=== PATIENT | male | born 1960 | race Caucasian/White ===

== ENCOUNTER 2017-05-25 15:11 | Inpatient (IN) | payer BC ==
[~2017-05-25] VITALS: Ht 175.3 cm; Wt 73.7 kg
[2017-05-25 19:50] VITALS: BP 115/77; PULSE 81; RESP 18
[2017-05-25] MEDS ORDERED: LEVO500T10 PO (20:30)
[2017-05-25] MEDS ORDERED: MOME13HF2 INHALATION (20:30)
[2017-05-25] MEDS ORDERED: PRED20TA PO (20:30)
[2017-05-25] MEDS ORDERED: ALBU18HF INHALATION (20:30)
[2017-05-25 20:43] VITALS: Ht 175.3 cm; Wt 73.7 kg
[2017-05-25] MEDS ORDERED: ONDANSETRON 4 MG INJ IV PRN (21:00)
[2017-05-25] MEDS ORDERED: ACETAMINOPHEN 325 MG TAB PO PRN (21:00)
[2017-05-25] MEDS ORDERED: ALBUTEROL/IPRATROPIUM (NEB) 3 ML AMP HHN PRN (21:00)
[2017-05-25] MEDS: METHYLPREDNISOLONE 125 MG INJ IV SCH (21:42)
[2017-05-25] MEDS: LEVOFLOXACIN 500MG/D5W (PMX) 100 ML IVPB SCH (21:50)
[2017-05-26 01:26] LABS: ADD SCAN DIFF NO
[2017-05-26 01:28] LABS: ABNORMAL IP MESSAGE 1; BASOPHILS % 0.1 % (0.0-2.0); HEMATOCRIT 40.5 % (42.0-52.0); HEMOGLOBIN 13.1 g/dl (14.0-18.0); LYMPHOCYTES # 0.6 10^3/ul (0.8-2.9); LYMPHOCYTES % 7.4 % (15.0-51.0); MEAN CORPUSCULAR HEMOGLOBIN 28.2 pg (29.0-33.0); MEAN CORPUSCULAR HGB CONC 32.3 g/dl (32.0-37.0); MEAN CORPUSCULAR VOLUME 87.1 fl (82.0-101.0); MEAN PLATELET VOLUME 9.4 fl (7.4-10.4); MONOCYTE # 0.1 10^3/ul (0.3-0.9); MONOCYTES % 1.1 % (0.0-11.0); NEUTROPHIL # 6.8 10^3/ul (1.6-7.5); NEUTROPHILS % 90.9 % (39.0-77.0); PLATELET COUNT 239 10^3/UL (140-415); RED BLOOD COUNT 4.65 10^6/ul (4.70-6.10); RED CELL DISTRIBUTION WIDTH 13.3 % (11.5-14.5); WHITE BLOOD COUNT 7.4 10^3/ul (4.8-10.8)
[2017-05-26 01:35] VITALS: BP 105/61; RESP 20
[2017-05-26 01:48] LABS: ALBUMIN 3.6 g/dl (3.3-4.9); ALBUMIN/GLOBULIN RATIO 1.12; BILIRUBIN,INDIRECT 0.1 mg/dl (0-1.1); BILIRUBIN,TOTAL 0.1 mg/dl (0.2-1.3); CALCIUM 9.4 mg/dl (8.4-10.2); CREATININE 0.82 mg/dl (0.61-1.24); PHOSPHORUS 2.2 mg/dl (2.5-4.9); POTASSIUM 4.2 mmol/L (3.5-5.1); TOTAL PROTEIN 6.8 g/dl (6.1-8.1)
[2017-05-26] MEDS: METHYLPREDNISOLONE 125 MG INJ IV SCH ×2 (08:32→20:52)
[2017-05-26] MEDS: FAMOTIDINE 20 MG TAB PO SCH ×2 (08:33→20:52)
[2017-05-26] MEDS: NICOTINE (21 MG/24 HR) PATCH TRANSDERM SCH (08:33)
[2017-05-26 09:10] VITALS: BP 113/68; PULSE 71; RESP 22
[2017-05-26] MEDS: SALMETEROL/FLUTICASONE 250/50 INHA INH SCH ×2 (09:10→20:54)
[2017-05-26] MEDS ORDERED: SOD CHLORIDE 0.9% 100 ML ONE (09:31)
[2017-05-26] MEDS ORDERED: IOHEXOL 300MG/ML 150 ML BTL ONE (09:31)
--- NOTE | 2017-05-26 11:46 | HP ---
Date/Time of Note Date/Time of Note DATE: 05/26/17 TIME: 11:41 Assessment/Plan VTE Prophylaxis VTE Prophylaxis Intervention: SCD's Lines/Catheters IV Catheter Type (from Nrs): Peripheral IV Assessment/Plan Assessment/Plan IMPRESSION 1. Chronic Cough, likely 2/2 COPD/bronchitis vs malignancy vs infectious etiology 2. COPD 3. abnormal CXR 4. hx of dyslipidemia 5. hx of smoking PLAN will obtain CT chest to eval for abnormal CXR will send sputum for AFB, gramstain/culture order cocci serologies treat with bronchodilators, steroid and abx cont statin HPI/ROS Admit Date/Time Admit Date/Time May 25, 2017 at 19:30 Hx of Present Illness This is a 57 yo male with hx COPD, dyslipidemia, chronic cough, kidney stone, inguinal hernia, and smoking hx who was transferred to [facility] from outside hospital for further eval of chronic cough and abnormal CXR. he was transferred because of insurance reason. He reported chronic cough of 2 years duration. At times, cough has been productive of greenish sputum and rarely has been very minimally blood tinged. he said he has been told cough is secondary to bronchitis and emphysema on multiple occasions in the past. he denied fever, chills, N/V. He did however report shortness of breath and chest discomfort usually when coughing. He said he has been told he has few enlarged lymph nodes, one measuring about 6cm. . PMH/Family/Social Social History Smoking Status: Former smoker Exam/Review of Systems Vital Signs Vitals Vital Signs Date Time Temp Pulse Resp B/P Pulse Ox O2 Delivery O2 Flow Rate FiO2 05/26/17 09:10 97.9 71 22 113/68 95 Nasal Cannula 2.0 Intake and Output 05/25/17 05/25/17 05/26/17 15:00 23:00 07:00 Intake Total 100 ml 360 ml Output Total 500 ml Balance 100 ml -140 ml Exam Constitutional: alert, oriented, well developed Head: atraumatic, normocephalic Respiratory: congested cough, diminished breath sounds, wheezing Cardiovascular: nl pulses, regular rate and rhythm Gastrointestinal: non-tender, soft Extremities: normal pulses Labs Result Diagram: 05/26/17 0117 05/26/17 0117 Medications Medications Current Medications Acetaminophen 650 mg 650 mg Q6H PRN PO PAIN AND OR ELEVATED TEMP; Start at 21:00 Levofloxacin/ Dextrose (Levaquin 500mg/ D5W 100 ml (Pmx)) 100 ml @ 100 mls/hr Q24H IVPB Last administered on 05/25/17 21:50; Admin Dose 100 MLS/HR; Start at 21:00 Nicotine (Nicoderm 21 Mg/ 24hr) 1 patch DAILY TRANSDERM ; Start 05/26/17 at 09: 00 Methylprednisolone Sodium Succinate (Solu-Medrol) 60 mg BID IV Last administered on 05/26/17 08:32; Admin Dose 60 MG; Start 05/25/17 at 21:00 Ondansetron HCl (Zofran Inj) 4 mg Q6H PRN IV NAUSEA AND/OR VOMITING; Start at 21:00 Famotidine (Pepcid) 20 mg BID PO Last administered on 05/26/17 08:33; Admin Dose 20 MG; Start 05/26/17 at 09:00 Salmeterol Xinafoate/ Fluticasone (Advair 250/50 Diskus) 1 inh BID INH Last administered on 05/26/17 09:10; Admin Dose 1 INH; Start 05/26/17 at 09:00 ALBERTINA SIMON MD May 26, 2017 11:46
[2017-05-26 13:22] VITALS: BP 112/61; RESP 18
--- NOTE | 2017-05-26 16:35 | RADRPT ---
PROCEDURE: CT Chest with contrast. CLINICAL INDICATION: None. TECHNIQUE: Helical axial sections were obtained through the chest with intravenous contrast enhanc ement. 80 ml of Omnipaque-300 was used for the intravenous contrast. Coronal and sagittal reforma tted images were obtained from the axial source images. Total exam DLP is 472.96 mGy-cm. CTDIvol is 12.20 mGy. One or more of the following dose reduction techniques were used: Automated exposure co ntrol, adjustment of the mA and/or kV according to patient size, use of iterative reconstruction jesse hnique. COMPARISON: None FINDINGS: The lungs are clear with no airspace or interstitial disease. There is no pulmonary nodule or mass lesion. There is extensive lymphadenopathy throughout the superior anterior mediastinum, middle mediastinum, and bilateral buzz. The largest lymph node in the anterior mediastinum superiorly at the level of the great vessels measures 2.2 x 1.6 cm. Right paratracheal lymphadenopathy measures up to 3.4 x 2. 4 cm. Aortopulmonary window lymphadenopathy measures up to 2.4 x 1.9 cm. Subcarinal lymphadenopath y measures up to 2.1 x 3.4 cm. Right hilar lymphadenopathy measures up to 4.0 x 3.0 cm and left hil ar lymphadenopathy measures up to 2.7 x 1.8 cm. There is right retrocrural lymphadenopathy measurin g up to 1.0 x 1.5 cm. There is no axillary, supraclavicular, or internal mammary lymphadenopathy. The thoracic aorta is not dilated. The heart size is normal. There is no pleural effusion or pericardial effusion. Images through the upper abdomen demonstrate normal visualized portions of the liver, spleen, and ad renals. There are mild degenerative changes of the spine. The osseous structures are otherwise unr emarkable with no fracture or lytic lesion. IMPRESSION: 1. Extensive lymphadenopathy throughout the mediastinum and buzz consistent with probable neoplasm. Various inflammatory and infectious processes may also give this appearance. Clinical correlation is advised. 2. Clear lungs. 3. Mild degenerative changes of the spine. RPTAT: QQ .Jaun Ramos MD, MD Date Time Electronically viewed and signed by .Jaun Ramos MD, on 05/26/2017 16:35 .R/
[2017-05-26] MEDS ORDERED: PROMETHAZINE/CODEINE 5ML CUP PO PRN (19:00)
[2017-05-26 19:29] VITALS: BP 104/59; RESP 18
[2017-05-26] MEDS: LEVOFLOXACIN 500MG/D5W (PMX) 100 ML IVPB SCH (20:51)
[2017-05-26] MEDS: ATORVASTATIN 20 MG TAB PO SCH (20:52)
[2017-05-27 02:12] VITALS: BP 117/72; RESP 18
[2017-05-27 08:05] VITALS: BP 105/69; RESP 20
[2017-05-27] MEDS: NICOTINE (21 MG/24 HR) PATCH TRANSDERM SCH ×2 (09:33→09:40)
[2017-05-27] MEDS: SALMETEROL/FLUTICASONE 250/50 INHA INH SCH ×2 (09:33→21:19)
[2017-05-27] MEDS: FAMOTIDINE 20 MG TAB PO SCH ×2 (09:34→21:19)
[2017-05-27] MEDS: METHYLPREDNISOLONE 125 MG INJ IV SCH ×2 (09:34→21:19)
[2017-05-27] MEDS ORDERED: SOD CHLORIDE 0.9% 100 ML ONE (10:53)
[2017-05-27] MEDS ORDERED: IOHEXOL 300MG/ML 150 ML BTL ONE (10:53)
--- NOTE | 2017-05-27 13:00 | CONS ---
Date/Time of Note Date/Time of Note DATE: 05/27/17 TIME: 12:49 Assessment/Plan Assessment/Plan Additional Assessment/Plan CT scan chest was reviewed from yesterday which is showing extensive mediastinal and hilar lymphadenopathy. Assessment recommendations; 1. Patient admitted for chronic cough dating back several months to a year associated with significant mediastinal and hilar lymphadenopathy, patient also has wheezing and shortness of breath. And also has had ocular issues etiology is unclear at this point. The findings are clinically consistent with presumptive diagnosis of sarcoidosis. Patient will need to have a mediastinal lymph node biopsy done. I am going to have a thoracic surgeon evaluate the patient. Clinically there is no suspicion of pulmonary tuberculosis. Consultation Date/Type/Reason Admit Date/Time May 25, 2017 at 19:30 Date of Consultation: May 27, 2017 Type of Consultation: Pulmonary Reason for Consultation Pulmonary consultation requested for evaluation of mediastinal lymphadenopathy. History of present illness; patient is a very pleasant 57-year-old male who was admitted day before yesterday with complaints of chronic cough dating back several months to almost a year associated with shortness of breath and wheezing. The patient has been evaluated by various physicians over the last several months without any diagnosis being made. The patient does complain of low-grade fever off and on has lost 4 pounds over the last several months. Denies any chest pain, denies any sputum production or hemoptysis. Upon evaluation he had a CT scan of chest was done which is showing extensive mediastinal and hilar lymphadenopathy. Without any acute alveolar infiltrates being seen. Past medical history; history of inguinal hernia. No show any other medical illnesses. The patient apparently has had some kind of eye surgery performed in the past. Medications; reviewed. Allergies; none. Social history; patient quit smoking about more than a year ago. Most of alcohol or drug abuse. Family history; patient is , malignancy runs strongly in the family, his brother of stomach cancer, mother also had had some kind of malignancy. 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 Review of systems; denies any headache, visual changes, seizures, dysphagia, chest pain, angina, complaint of chronic wheezing. Complains of dyspnea on exertion. Complains of chronic cough. Has lost minimal weight. Denies any edema. Any urinary symptoms. Denies any GI symptoms. Denies any arthritis or any skin changes. General exam; middle-aged male, awake alert currently in no distress. Social History Smoking Status: Former smoker Exam/Review of Systems Vital Signs Vitals Vital Signs Date Time Temp Pulse Resp B/P Pulse Ox O2 Delivery O2 Flow Rate FiO2 05/27/17 11:42 Nasal Cannula 2.0 05/27/17 09:44 91 05/27/17 08:05 97.6 65 20 105/69 05/26/17 20:17 30 Intake and Output 05/26/17 05/26/17 05/27/17 15:00 23:00 07:00 Intake Total 940 ml 300 ml Output Total 600 ml Balance 940 ml -300 ml Exam HEENT exam; supple neck, no JVD. No lymphadenopathy. Midline trachea. No thyromegaly. No neck masses. Patient has fair dentition. There is no cervical lymphadenopathy. Pupils are midsize and reactive to light bilaterally. Chest exam; bilateral wheezing. S1-S2 audible, no murmurs. Regular rhythm. Abdomen exam; soft, nontender. No organomegaly. Bowel sounds audible. Extremity exam; no peripheral edema. No clubbing. Pulses 2+ bilaterally. TAMPER OPERATOR exam; no focal deficit. Results Result Diagram: 05/26/1711605/26/17116 Medications Medications Current Medications Acetaminophen 650 mg 650 mg Q6H PRN PO PAIN AND OR ELEVATED TEMP; Start at 21:00 Levofloxacin/ Dextrose (Levaquin 500mg/ D5W 100 ml (Pmx)) 100 ml @ 100 mls/hr Q24H IVPB Last administered on 05/26/17 20:51; Admin Dose 100 MLS/HR; Start at 21:00 Nicotine (Nicoderm 21 Mg/ 24hr) 1 patch DAILY TRANSDERM ; Start 05/26/17 at 09: 00 Methylprednisolone Sodium Succinate (Solu-Medrol) 60 mg BID IV Last administered on 05/27/17 09:34; Admin Dose 60 MG; Start 05/25/17 at 21:00 Ondansetron HCl (Zofran Inj) 4 mg Q6H PRN IV NAUSEA AND/OR VOMITING; Start at 21:00 Famotidine (Pepcid) 20 mg BID PO Last administered on 05/27/17 09:34; Admin Dose 20 MG; Start 05/26/17 at 09:00 Salmeterol Xinafoate/ Fluticasone (Advair 250/50 Diskus) 1 inh BID INH Last administered on 05/27/17 09:33; Admin Dose 1 INH; Start 05/26/17 at 09:00 Atorvastatin Calcium (Lipitor) 20 mg HS PO Last administered on 05/26/17 20:52 ; Admin Dose 20 MG; Start 05/26/17 at 21:00 Promethazine HCl/ Codeine 5 ml 5 ml Q4H PRN PO COUGH Last administered on 19:47; Admin Dose 5 ML; Start 05/26/17 at 19:00 Sodium Chloride (1/2 NS) 1,000 ml @ 100 mls/hr Q10H IV ; Start 05/27/17 at 10: 00 TOÑITO LARA May 27, 2017 12:59
[2017-05-27 13:27] VITALS: BP 116/76; RESP 16
[2017-05-27] MEDS: SOD CHLORIDE 0.45% 1,000 ML IV SCH ×2 (13:51→22:52)
--- NOTE | 2017-05-27 14:15 | PN ---
Date/Time of Note Date/Time of Note DATE: 05/27/17 TIME: 14:10 Assessment/Plan VTE Prophylaxis VTE Prophylaxis Intervention: SCD's Lines/Catheters IV [facility] Assessment/Plan Chief Complaint/Hosp Course 1. Chronic Cough CT chest shows clear lungs but extensive pulmonary lymphadenopathy-etiology infectious versus neoplasm CT abdomen and pelvis to evaluate for malignancy Patient denies weight loss, night sweats or hemoptysis will obtain a QuantiFERON gold to rule out TB, AFB sputum is also been ordered Follow-up on coccidiomycosis antibody Pulmonary and ID consults Continue antibiotics and steroids for now Patient does have a history of smoking but reportedly not excessively 2. History of dyslipidemia Continue statin Check lipid panel Prophylaxis: SCDs Problems: Subjective 24 Hr Interval Summary Respiratory: cough Exam/Review of Systems Vital Signs Vitals Vital Signs Date Time Temp Pulse Resp B/P Pulse Ox O2 Delivery O2 Flow Rate FiO2 05/27/17 13:27 97.8 70 16 116/76 96 05/27/17 11:42 Nasal Cannula 2.0 05/26/17 20:17 30 Intake and Output 05/26/17 05/26/17 05/27/17 15:00 23:00 07:00 Intake Total 940 ml 300 ml Output Total 600 ml Balance 940 ml -300 ml Exam Constitutional: alert, oriented Respiratory: crackles/rales Cardiovascular: regular rate and rhythm Gastrointestinal: soft, No distended Musculoskeletal: nl extremities to inspection Results Result Diagram: 05/26/17 0117 05/26/17 0117 Medications Medications Current Medications Acetaminophen 650 mg 650 mg Q6H PRN PO PAIN AND OR ELEVATED TEMP; Start at 21:00 Levofloxacin/ Dextrose (Levaquin 500mg/ D5W 100 ml (Pmx)) 100 ml @ 100 mls/hr Q24H IVPB Last administered on 05/26/17 20:51; Admin Dose 100 MLS/HR; Start at 21:00 Nicotine (Nicoderm 21 Mg/ 24hr) 1 patch DAILY TRANSDERM ; Start 05/26/17 at 09: 00 Methylprednisolone Sodium Succinate (Solu-Medrol) 60 mg BID IV Last administered on 05/27/17 09:34; Admin Dose 60 MG; Start 05/25/17 at 21:00 Ondansetron HCl (Zofran Inj) 4 mg Q6H PRN IV NAUSEA AND/OR VOMITING; Start at 21:00 Famotidine (Pepcid) 20 mg BID PO Last administered on 05/27/17 09:34; Admin Dose 20 MG; Start 05/26/17 at 09:00 Salmeterol Xinafoate/ Fluticasone (Advair 250/50 Diskus) 1 inh BID INH Last administered on 05/27/17 09:33; Admin Dose 1 INH; Start 05/26/17 at 09:00 Atorvastatin Calcium (Lipitor) 20 mg HS PO Last administered on 05/26/17 20:52 ; Admin Dose 20 MG; Start 05/26/17 at 21:00 Promethazine HCl/ Codeine 5 ml 5 ml Q4H PRN PO COUGH Last administered on 19:47; Admin Dose 5 ML; Start 05/26/17 at 19:00 Sodium Chloride (1/2 NS) 1,000 ml @ 100 mls/hr Q10H IV Last administered on 13:51; Admin Dose 100 MLS/HR; Start 05/27/17 at 10:00 JACKIE RUDOLPH May 27, 2017 14:14
--- NOTE | 2017-05-27 15:12 | RADRPT ---
PROCEDURE: CT abdomen and pelvis with contrast. CLINICAL INDICATION: Evaluate for malignancy. No history of hemoptysis. TECHNIQUE: CT of the abdomen/pelvis was performed utilizing axial images with reconstructions in s agittal and coronal planes following the intravenous administration of 100 cc Omnipaque-300 contrast . The administered radiation dose is CTDI 10.33 mGy, DLP 658.07 mGy-cm. One or more of the following dose reduction techniques were used: Automated exposure control, Adjustment of the mA and/or kV acc ording to patient size, or Use of iterative reconstruction technique. COMPARISON: CT chest 05/26/2017 FINDINGS: Lung bases: Right infrahilar lymphadenopathy is partially imaged within the lower thorax, better dem onstrated on comparison CT chest. The heart is normal size without pericardial effusion. There is b ilateral posterior dependent atelectasis. CT ABDOMEN: Gastrointestinal tract: There is no bowel obstruction.No abnormal colonic wall thickening is identif ied.There is no pneumoperitoneum. A normal-appearing appendix is seen in the right lower quadrant. T here are a few scattered colonic diverticuli without evidence of acute diverticulitis. Liver: The liver is normal in size without focal lesion.There is no intrahepatic ductal dilatation. Gallbladder: The gallbladder is collapsed. Pancreas: The pancreas is grossly unremarkable. Spleen: The spleen is normal in size without focal lesion. Kidneys: The kidneys are normal in size and contour. A 3-4 mm stone is seen in the interpolar left k idney. Punctate calculi are seen in the interpolar right kidney. Extrarenal pelvis or parapelvic cys t is seen on the left. No hydronephrosis is seen. Adrenal glands: The bilateral adrenal glands are unremarkable. Retroperitoneum: A few borderline enlarged periaortic lymph nodes are noted. The aorta is normal in caliber. CT PELVIS: Pelvic organs: The prostate gland is mildly enlarged and contains coarse calcifications. Bladder: The bladder is unremarkable. There is no pelvic free fluid.No pelvic adenopathy is identified. Osseous structures: No destructive lytic or blastic osseous lesion is identified. IMPRESSION: 1. Right perihilar hilar lymphadenopathy is partially imaged and better demonstrated on prior CT ch est of 05/26/2017. 2. Bilateral nephrolithiasis without evidence of hydronephrosis. 3. Borderline enlarged upper para-aortic lymph nodes. 4. Colonic diverticulosis without evidence of acute diverticulitis. RPTAT: PP Nela Rebolledo, Physician Date Time Electronically viewed and signed by Nela Rebolledo Physician on 05/27/2017 15:11 RC/
[2017-05-27 20:24] VITALS: BP 106/62; RESP 18
[2017-05-27] MEDS: LEVOFLOXACIN 500MG/D5W (PMX) 100 ML IVPB SCH (21:19)
[2017-05-27] MEDS: ATORVASTATIN 20 MG TAB PO SCH (21:19)
[2017-05-28 02:27] VITALS: BP 108/65; RESP 18
[2017-05-28 05:59] LABS: ADD SCAN DIFF NO
[2017-05-28 06:05] LABS: BASOPHILS % 0.1 % (0.0-2.0); HEMATOCRIT 40.8 % (42.0-52.0); HEMOGLOBIN 13.5 g/dl (14.0-18.0); LYMPHOCYTES # 0.9 10^3/ul (0.8-2.9); LYMPHOCYTES % 8.9 % (15.0-51.0); MEAN CORPUSCULAR HEMOGLOBIN 29.3 pg (29.0-33.0); MEAN CORPUSCULAR HGB CONC 33.1 g/dl (32.0-37.0); MEAN CORPUSCULAR VOLUME 88.5 fl (82.0-101.0); MONOCYTE # 0.4 10^3/ul (0.3-0.9); MONOCYTES % 3.9 % (0.0-11.0); NEUTROPHIL # 8.9 10^3/ul (1.6-7.5); NEUTROPHILS % 84.8 % (39.0-77.0); PLATELET COUNT 280 10^3/UL (140-415); RED BLOOD COUNT 4.61 10^6/ul (4.70-6.10); RED CELL DISTRIBUTION WIDTH 13.5 % (11.5-14.5); WHITE BLOOD COUNT 10.5 10^3/ul (4.8-10.8)
[2017-05-28 06:52] LABS: CALCIUM 9.2 mg/dl (8.4-10.2); CREATININE 0.8 mg/dl (0.61-1.24); MAGNESIUM 1.9 mg/dl (1.7-2.5); PHOSPHORUS 3.2 mg/dl (2.5-4.9); POTASSIUM 4.1 mmol/L (3.5-5.1)
[2017-05-28 07:32] VITALS: BP 123/71; RESP 18
[2017-05-28] MEDS: SOD CHLORIDE 0.45% 1,000 ML IV SCH ×4 (07:50→21:25)
[2017-05-28] MEDS: METHYLPREDNISOLONE 125 MG INJ IV SCH ×2 (08:44→21:26)
[2017-05-28] MEDS: FAMOTIDINE 20 MG TAB PO SCH ×2 (08:44→21:25)
[2017-05-28] MEDS: SALMETEROL/FLUTICASONE 250/50 INHA INH SCH ×2 (08:45→21:25)
--- NOTE | 2017-05-28 10:59 | CONS ---
Date/Time of Note Date/Time of Note DATE: 05/28/17 TIME: 10:44 Assessment/Plan Assessment/Plan Chief Complaint/Hosp Course assessment/impression - chronic cough of unclear etiology: possible etiologies include infectious ( bacterial, fungal, mycobacterial), vasculitis, reactive and neoplastic - possibly superimposed viral bronchitis - extensive mediastinal and hilar lymphadenopathy with clear parenchyma - visual change - extensive exposure to construction dusts recommendations - pending result: AFB sputum x2, cocci serology, QTB gold - I recommend and ordered: respiratory fungal culture, AFB smear and culture x1 more, HIV screen, LDH, 1,2-iuxf-Q-glucan, urine histoplasma antigen, urine legionella antigen, cryptococcal antigen, nasopharyngeal swab (influenza A/B/ H1N1, bordetella pertussis, RSV, respiratory viruses), - I recommend: ceftriaxone and azithromycin. Would hold levofloxacin while working Pt up for TB management d/w Pt, his RN, Dr. Humphreys and Dr. Tierney Problems: Consultation Date/Type/Reason Admit Date/Time May 25, 2017 at 19:30 Date of Consultation: May 28, 2017 Type of Consultation: ID Referring Provider: JACKIE HUMPHREYS Hx of Present Illness This is a 57 yo male with hyperlipidemia who was admitted due to 2-3 year h/o chronic cough. It has been productive, usually white colored sputum. He has had pleuritic chest pain, that radiates from the anterior chest wall to the mid upper back. He denies weight loss. Pt started having cough 2-3 years ago and was evaluated as outpatient; was treated for probable bronchitis, asthma without improvement. He was informed that he had mediastinal and hilar lymphadenopathy, and was referred for further workup. Recently, he feels that cough got worse after he was exposed to a friend who was having URI symptoms. He developed fever and chills, and sputum color turned green. CT here confirmed extensive lymphadenopathy throughout the mediastinum and buzz, while no parenchymal lesions. Pt has lived in [facility] for many years. He lives at home with his family. No known TB contact. He was tested negative for HIV in the past. He had TB test but does not remember the result. 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 He has never been homeless or in the intermediate. Dr. Humphreys requested ID consultation on this Pt. Constitutional: chills, febrile Eyes: visual change (blurry) ENT: no complaints Respiratory: cough, pain, pleuritic pain, sputum, wheezing Cardiovascular: no complaints Gastrointestinal: no complaints Genitourinary: no complaints Musculoskeletal: no complaints Skin: no complaints Neurologic: no complaints Endocrine: no complaints Lymphatic: no complaints Past Medical History Medical History: hypertension, other (hyperlipidemia) Social History Alcohol Use: none Smoking Status: Former smoker Drug Use: none Exam/Review of Systems Vital Signs Vitals Vital Signs Date Time Temp Pulse Resp B/P Pulse Ox O2 Delivery O2 Flow Rate FiO2 05/28/17 07:32 97.5 56 18 123/71 91 05/27/17 20:00 Nasal Cannula 2.0 05/26/17 20:17 30 Intake and Output 05/27/17 05/27/17 05/28/17 15:00 23:00 07:00 Intake Total 100 ml 2340 ml 1510 ml Output Total 1000 ml Balance 100 ml 2340 ml 510 ml Exam Constitutional: alert, oriented, well developed Psych: nl mood/affect, no complaints Head: normocephalic Eyes: nl conjunctiva, nl lids, nl sclera, No icteric ENMT: mucosa pink and moist, nl external ears & nose, nl nasal mucosa & septum Neck: supple Respiratory: crackles/rales, wheezing Cardiovascular: nl pulses, regular rate and rhythm Gastrointestinal: non-tender, soft Musculoskeletal: nl extremities to inspection Extremities: No edema Neurological: VOLLEYBALL COMMENTATOR II-XII intact, nl mental status, nl speech, nl strength Skin: nl turgor, No rash or lesions Lymph: nl lymph nodes Results Result Diagram: 05/28/17 0507 05/28/17 0500 Results 24 hrs Laboratory Tests Test 05/28/17 05:00 05/28/17 05:07 Sodium Level 142 Potassium Level 4.1 Chloride Level 102 Carbon Dioxide Level 26 Anion Gap 18 H Blood Urea Nitrogen 18 Creatinine 0.80 Glucose Level 107 Calcium Level 9.2 Phosphorus Level 3.2 Magnesium Level 1.9 White Blood Count 10.5 # Red Blood Count 4.61 L Hemoglobin 13.5 L Hematocrit 40.8 L Mean Corpuscular Volume 88.5 Mean Corpuscular Hemoglobin 29.3 Mean Corpuscular Hemoglobin Concent 33.1 Red Cell Distribution Width 13.5 Platelet Count 280 Mean Platelet Volume 10.0 Neutrophils % 84.8 H Lymphocytes % 8.9 L Monocytes % 3.9 Eosinophils % 0.0 Basophils % 0.1 Neutrophils # 8.9 H Lymphocytes # 0.9 Monocytes # 0.4 Eosinophils # 0.0 Basophils # 0.0 Nucleated Red Blood Cells # 0.0 Medications Medications Current Medications Acetaminophen 650 mg 650 mg Q6H PRN PO PAIN AND OR ELEVATED TEMP; Start at 21:00 Levofloxacin/ Dextrose (Levaquin 500mg/ D5W 100 ml (Pmx)) 100 ml @ 100 mls/hr Q24H IVPB Last administered on 05/27/17 21:19; Admin Dose 100 MLS/HR; Start at 21:00 Nicotine (Nicoderm 21 Mg/ 24hr) 1 patch DAILY TRANSDERM ; Start 05/26/17 at 09: 00 Methylprednisolone Sodium Succinate (Solu-Medrol) 60 mg BID IV Last administered on 05/28/17 08:44; Admin Dose 60 MG; Start 05/25/17 at 21:00 Ondansetron HCl (Zofran Inj) 4 mg Q6H PRN IV NAUSEA AND/OR VOMITING; Start at 21:00 Famotidine (Pepcid) 20 mg BID PO Last administered on 05/28/17 08:44; Admin Dose 20 MG; Start 05/26/17 at 09:00 Salmeterol Xinafoate/ Fluticasone (Advair 250/50 Diskus) 1 inh BID INH Last administered on 05/28/17 08:45; Admin Dose 1 INH; Start 05/26/17 at 09:00 Atorvastatin Calcium (Lipitor) 20 mg HS PO Last administered on 05/27/17 21:19 ; Admin Dose 20 MG; Start 05/26/17 at 21:00 Promethazine HCl/ Codeine 5 ml 5 ml Q4H PRN PO COUGH Last administered on 19:47; Admin Dose 5 ML; Start 05/26/17 at 19:00 Sodium Chloride (1/2 NS) 1,000 ml @ 100 mls/hr Q10H IV Last administered on 09:57; Admin Dose 100 MLS/HR; Start 05/27/17 at 10:00 LAVERNE WOOTEN M.D. May 28, 2017 10:58
[2017-05-28 12:48] LABS: LACTATE DEHYDROGENASE 436 IU/L (313-618)
[2017-05-28] MEDS: CEFTRIAXONE 1 GM/50 ML (PMX) 50 ML IVPB SCH (15:31)
[2017-05-28] MEDS: AZITHROMYCIN 250 MG TAB PO SCH (15:32)
--- NOTE | 2017-05-28 15:40 | PN ---
Date/Time of Note Date/Time of Note DATE: 05/28/17 TIME: 15:38 Assessment/Plan VTE Prophylaxis VTE Prophylaxis Intervention: SCD's Lines/Catheters IV [facility]ter Type (from [facility]): [place] [facility] Assessment/Plan Chief Complaint/Hosp Course 1. Chronic Cough CT chest shows clear lungs but extensive pulmonary lymphadenopathy-etiology infectious versus neoplasm CT abdomen and pelvis shows no evidence of malignancy Patient denies weight loss, night sweats or hemoptysis, although upon QuantiFERON gold to rule out TB, AFB sputum is also been ordered Follow-up on coccidiomycosis antibody Pulmonary and ID consults appreciated Continue antibiotics and steroids for now Patient will need a mediastinoscopy, CT surgeon aware Patient does have a history of smoking but reportedly not excessively 2. History of dyslipidemia Continue statin Check lipid panel Prophylaxis: SCDs Problems: Subjective 24 Hr Interval Summary Respiratory: cough Exam/Review of Systems Vital Signs Vitals Vital Signs Date Time Temp Pulse Resp B/P Pulse Ox O2 Delivery O2 Flow Rate FiO2 05/28/17 07:32 97.5 56 18 123/71 91 05/27/17 20:00 Nasal Cannula 2.0 05/26/17 20:17 30 Intake and Output 05/27/17 05/27/17 05/28/17 15:00 23:00 07:00 Intake Total 100 ml 2340 ml 1510 ml Output Total 1000 ml Balance 100 ml 2340 ml 510 ml Exam Constitutional: alert, oriented Respiratory: clear to auscultation Cardiovascular: regular rate and rhythm Gastrointestinal: soft, No distended Musculoskeletal: nl extremities to inspection Results Result Diagram: 05/28/17 0507 05/28/17 0500 Results 24 hrs Laboratory Tests Test 05/28/17 05:00 05/28/17 05:07 05/28/17 11:55 Sodium Level 142 Potassium Level 4.1 Chloride Level 102 Carbon Dioxide Level 26 Anion Gap 18 H Blood Urea Nitrogen 18 Creatinine 0.80 Glucose Level 107 Calcium Level 9.2 Phosphorus Level 3.2 Magnesium Level 1.9 White Blood Count 10.5 # Red Blood Count 4.61 L Hemoglobin 13.5 L Hematocrit 40.8 L Mean Corpuscular Volume 88.5 Mean Corpuscular Hemoglobin 29.3 Mean Corpuscular Hemoglobin Concent 33.1 Red Cell Distribution Width 13.5 Platelet Count 280 Mean Platelet Volume 10.0 Neutrophils % 84.8 H Lymphocytes % 8.9 L Monocytes % 3.9 Eosinophils % 0.0 Basophils % 0.1 Neutrophils # 8.9 H Lymphocytes # 0.9 Monocytes # 0.4 Eosinophils # 0.0 Basophils # 0.0 Nucleated Red Blood Cells # 0.0 Lactate Dehydrogenase 436 HIV (1&2) Antibody NEGATIVE Medications Medications Current Medications Acetaminophen (Tylenol Tab) 650 mg Q6H PRN PO PAIN AND OR ELEVATED TEMP; Start 05/25/17 at 21:00 Nicotine (Nicoderm 21 Mg/ 24hr) 1 patch DAILY TRANSDERM ; Start 05/26/17 at 09: 00 Methylprednisolone Sodium Succinate (Solu-Medrol) 60 mg BID IV Last administered on 05/28/17 08:44; Admin Dose 60 MG; Start 05/25/17 at 21:00 Ondansetron HCl (Zofran Inj) 4 mg Q6H PRN IV NAUSEA AND/OR VOMITING; Start at 21:00 Famotidine (Pepcid) 20 mg BID PO Last administered on 05/28/17 08:44; Admin Dose 20 MG; Start 05/26/17 at 09:00 Salmeterol Xinafoate/ Fluticasone (Advair 250/50 Diskus) 1 inh BID INH Last administered on 05/28/17 08:45; Admin Dose 1 INH; Start 05/26/17 at 09:00 Atorvastatin Calcium (Lipitor) 20 mg HS PO Last administered on 05/27/17 21:19 ; Admin Dose 20 MG; Start 05/26/17 at 21:00 Promethazine HCl/ Codeine 5 ml 5 ml Q4H PRN PO COUGH Last administered on 19:47; Admin Dose 5 ML; Start 05/26/17 at 19:00 Sodium Chloride 1,000 ml @ 100 mls/hr Q10H IV Last administered on 05/28/17 09:57; Admin Dose 100 MLS/HR; Start 05/27/17 at 10:00 Ceftriaxone Sodium (Rocephin) 50 ml @ 100 mls/hr Q24H IVPB Last administered on 05/28/17 15:31; Admin Dose 100 MLS/HR; Start 05/28/17 at 11:00 Azithromycin (Zithromax) 500 mg DAILY PO Last administered on 7/21/17at 15:32; Admin Dose 500 MG; Start 05/28/17 at 11:00; Stop 06/02/17 at 10:59 JACKIE RUDOLPH May 28, 2017 15:40
--- NOTE | 2017-05-28 16:48 | CONS ---
Date/Time of Note Date/Time of Note DATE: 05/28/17 TIME: 16:46 Consult Date/Type/Reason Admit Date/Time May 25, 2017 at 19:30 Initial Consult Date 05/28/17 Type of Consultation: Pulmonary Ordering Provider: JACKIE RUDOLPH Subjective Patient awake alert oriented this morning no new events. Comfortable has a nonproductive cough but no hemoptysis hematemesis. Objective Vital Signs Date Time Temp Pulse Resp B/P Pulse Ox O2 Delivery O2 Flow Rate FiO2 05/28/17 07:32 97.5 56 18 123/71 91 05/27/17 20:00 Nasal Cannula 2.0 05/26/17 20:17 30 Intake and Output 05/27/17 05/27/17 05/28/17 15:00 23:00 07:00 Intake Total 100 ml 2340 ml 1510 ml Output Total 1000 ml Balance 100 ml 2340 ml 510 ml Exam GENERAL: Well-nourished well-developed gentleman comfortable at rest no acute distress VITAL SIGNS: per chart NECK: Supple. No JVD or lymphadenopathy. CARDIAC EXAM: S1, S2. No added sounds or murmurs. CHEST: clear bilaterally, No added sounds, rales or wheezes ABDOMEN: Soft, nontender. No guarding or rebound. EXTREMITIES: No cyanosis, clubbing or edema. NEUROLOGIC: Generalized weakness. No focal deficits. Results/Medications Result Diagram: 05/28/17 0507 05/28/17 [address] chest IMPRESSION: 1. Extensive lymphadenopathy throughout the mediastinum and buzz consistent with probable neoplasm. Various inflammatory and infectious processes may also give this appearance. Clinical correlation is advised. 2. Clear lungs. 3. Mild degenerative changes of the spine. Laboratory Tests Test 05/28/17 05:00 05/28/17 05:07 05/28/17 11:55 Sodium Level 142 Potassium Level 4.1 Chloride Level 102 Carbon Dioxide Level 26 Anion Gap 18 H Blood Urea Nitrogen 18 Creatinine 0.80 Glucose Level 107 Calcium Level 9.2 Phosphorus Level 3.2 Magnesium Level 1.9 White Blood Count 10.5 # Red Blood Count 4.61 L Hemoglobin 13.5 L Hematocrit 40.8 L Mean Corpuscular Volume 88.5 Mean Corpuscular Hemoglobin 29.3 Mean Corpuscular Hemoglobin Concent 33.1 Red Cell Distribution Width 13.5 Platelet Count 280 Mean Platelet Volume 10.0 Neutrophils % 84.8 H Lymphocytes % 8.9 L Monocytes % 3.9 Eosinophils % 0.0 Basophils % 0.1 Neutrophils # 8.9 H Lymphocytes # 0.9 Monocytes # 0.4 Eosinophils # 0.0 Basophils # 0.0 Nucleated Red Blood Cells # 0.0 Lactate Dehydrogenase 436 HIV (1&2) Antibody NEGATIVE Medications Current Medications Acetaminophen (Tylenol Tab) 650 mg Q6H PRN PO PAIN AND OR ELEVATED TEMP; Start 05/25/17 at 21:00 Nicotine (Nicoderm 21 Mg/ 24hr) 1 patch DAILY TRANSDERM ; Start 05/26/17 at 09: 00 Methylprednisolone Sodium Succinate (Solu-Medrol) 60 mg BID IV Last administered on 05/28/17 08:44; Admin Dose 60 MG; Start 05/25/17 at 21:00 Ondansetron HCl (Zofran Inj) 4 mg Q6H PRN IV NAUSEA AND/OR VOMITING; Start at 21:00 Famotidine (Pepcid) 20 mg BID PO Last administered on 05/28/17 08:44; Admin Dose 20 MG; Start 05/26/17 at 09:00 Salmeterol Xinafoate/ Fluticasone (Advair 250/50 Diskus) 1 inh BID INH Last administered on 05/28/17 08:45; Admin Dose 1 INH; Start 05/26/17 at 09:00 Atorvastatin Calcium (Lipitor) 20 mg HS PO Last administered on 05/27/17 21:19 ; Admin Dose 20 MG; Start 05/26/17 at 21:00 Promethazine HCl/ Codeine 5 ml 5 ml Q4H PRN PO COUGH Last administered on 19:47; Admin Dose 5 ML; Start 05/26/17 at 19:00 Sodium Chloride 1,000 ml @ 100 mls/hr Q10H IV Last administered on 05/28/17 09:57; Admin Dose 100 MLS/HR; Start 05/27/17 at 10:00 Ceftriaxone Sodium (Rocephin) 50 ml @ 100 mls/hr Q24H IVPB Last administered on 05/28/17 15:31; Admin Dose 100 MLS/HR; Start 05/28/17 at 11:00 Azithromycin (Zithromax) 500 mg DAILY PO Last administered on 05/28/17t 15:32; Admin Dose 500 MG; Start 05/28/17 at 11:00; Stop 06/02/17 at 10:59 Assessment/Plan Chief Complaint/Hosp Course Assessment 1. Chronic cough for quite some time. Family states it is been over one year. He has had abnormal CT scan performed in the past and was being referred to pulmonary as an outpatient for further evaluation. Denies any history of TB no sick contacts. Patient does have a tobacco history. Differential diagnosis of lymphadenopathy includes malignancy, sarcoidosis, lymphoma and other inflammatory conditions. Plan 1. Sputum rule out TB 2. Patient will require mediastinoscopy for lymph node biopsy I had extensive discussion today with the patient and his daughter over the phone. Explained CT findings and plan of care. They understand and are agreeable to proceed with mediastinoscopy for tissue diagnosis and then plan of care. They also understand the broad differential that does include malignancy. Problems: AMY BELLA MD, [facility] May 28, 2017 16:48
[2017-05-28 19:31] VITALS: BP 118/79; RESP 18
[2017-05-28] MEDS: ATORVASTATIN 20 MG TAB PO SCH (21:25)
[2017-05-29 02:00] VITALS: BP 128/80; RESP 18
[2017-05-29] MEDS: SOD CHLORIDE 0.45% 1,000 ML IV SCH ×3 (05:26→18:50)
[2017-05-29 06:17] LABS: BASOPHILS % 0.3 % (0.0-2.0); HEMATOCRIT 44.3 % (42.0-52.0); HEMOGLOBIN 14.5 g/dl (14.0-18.0); LYMPHOCYTES # 1.1 10^3/ul (0.8-2.9); LYMPHOCYTES % 10.2 % (15.0-51.0); MEAN CORPUSCULAR HEMOGLOBIN 28.9 pg (29.0-33.0); MEAN CORPUSCULAR HGB CONC 32.7 g/dl (32.0-37.0); MEAN CORPUSCULAR VOLUME 88.4 fl (82.0-101.0); MEAN PLATELET VOLUME 9.5 fl (7.4-10.4); MONOCYTE # 0.4 10^3/ul (0.3-0.9); MONOCYTES % 4.1 % (0.0-11.0); NEUTROPHIL # 8.5 10^3/ul (1.6-7.5); NEUTROPHILS % 81.8 % (39.0-77.0); PLATELET COUNT 285 10^3/UL (140-415); RED BLOOD COUNT 5.01 10^6/ul (4.70-6.10); RED CELL DISTRIBUTION WIDTH 13.8 % (11.5-14.5); WHITE BLOOD COUNT 10.4 10^3/ul (4.8-10.8)
[2017-05-29 06:39] LABS: CALCIUM 9.5 mg/dl (8.4-10.2); CREATININE 0.81 mg/dl (0.61-1.24); POTASSIUM 4.6 mmol/L (3.5-5.1)
[2017-05-29 06:41] LABS: CHOL/HDL RATIO 3.8 RATIO
[2017-05-29 07:03] VITALS: BP 115/68; RESP 18
[2017-05-29] MEDS: SALMETEROL/FLUTICASONE 250/50 INHA INH SCH ×2 (08:46→21:54)
[2017-05-29] MEDS: FAMOTIDINE 20 MG TAB PO SCH ×2 (08:47→21:54)
[2017-05-29] MEDS: AZITHROMYCIN 250 MG TAB PO SCH (08:48)
[2017-05-29] MEDS: NICOTINE (21 MG/24 HR) PATCH TRANSDERM SCH (08:49)
[2017-05-29] MEDS: METHYLPREDNISOLONE 125 MG INJ IV SCH ×2 (08:51→21:53)
--- NOTE | 2017-05-29 10:38 | CONS ---
Date/Time of Note Date/Time of Note DATE: 05/29/17 TIME: 10:35 Assessment/Plan Assessment/Plan Chief Complaint/Hosp Course Mediastinal adenopathy Problems: Additional Assessment/Plan Patient has mediastinal adenopathy Plan for mediastinoscopy and biopsy Discussed with the patient and the daughter Discussed with the referring physician Consultation Date/Type/Reason Admit Date/Time May 25, 2017 at 19:30 Date of Consultation: May 29, 2017 Reason for Consultation Mediastinal adenopathy Hx of Present Illness This is a 57-year-old male admitted to the hospital complaining of pain in the chest cough for several months associated with shortness of breath and wheezing. Patient had been seen as an outpatient setting no diagnosis was made patient also has also lost 4 pounds in the past several months he has no hemoptysis or sputum production his chest CT showed mediastinal adenopathy Past medical history; history of inguinal hernia. No show any other medical illnesses. The patient apparently has had some kind of eye surgery performed in the past. Medications; reviewed. Allergies; none. Social history; patient quit smoking about more than a year ago. Most of alcohol or drug abuse. Family history; patient is , malignancy runs strongly in the family, his brother of stomach cancer, mother also had had some kind of malignancy. 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 Review of systems; denies any headache, visual changes, seizures, dysphagia, chest pain, angina, complaint of chronic wheezing. Complains of dyspnea on exertion. Complains of chronic cough. Has lost minimal weight. Denies any edema. Any urinary symptoms. Denies any GI symptoms. Denies any arthritis or any skin changes. Constitutional: chills, febrile Eyes: visual change (blurry) ENT: no complaints Respiratory: cough Cardiovascular: no complaints Gastrointestinal: no complaints Genitourinary: no complaints Musculoskeletal: no complaints Skin: no complaints Neurologic: no complaints Endocrine: no complaints Lymphatic: no complaints Psychological: nl mood/affect, no complaints Past Medical History Medical History: hypertension, other (hyperlipidemia) Past Surgical History Hernia surgery Social History Alcohol Use: none Smoking Status: Former smoker Drug Use: none Exam/Review of Systems Vital Signs Vitals Vital Signs Date Time Temp Pulse Resp B/P Pulse Ox O2 Delivery O2 Flow Rate FiO2 05/29/17 07:03 97.6 74 18 115/68 95 05/28/17 20:00 Nasal Cannula 2.0 05/26/17 20:17 30 Intake and Output 05/28/17 05/28/17 05/29/17 15:00 23:00 07:00 Intake Total 390 ml 2510 ml 1500 ml Output Total 350 ml Balance 390 ml 2510 ml 1150 ml Exam ENMT: nl external ears & nose, nl lips & teeth, nl nasal mucosa & septum Neck: non-tender, supple Respiratory: clear to auscultation, normal air movement Cardiovascular: nl pulses, regular rate and rhythm Gastrointestinal: nl liver, spleen, non-tender, soft Results Result Diagram: 05/29/17 0543 05/29/17 0543 Results 24 hrs Laboratory Tests Test 05/28/17 11:55 05/29/17 05:43 Lactate Dehydrogenase 436 HIV (1&2) Antibody NEGATIVE White Blood Count 10.4 Red Blood Count 5.01 Hemoglobin 14.5 Hematocrit 44.3 Mean Corpuscular Volume 88.4 Mean Corpuscular Hemoglobin 28.9 L Mean Corpuscular Hemoglobin Concent 32.7 Red Cell Distribution Width 13.8 Platelet Count 285 Mean Platelet Volume 9.5 Neutrophils % 81.8 H Lymphocytes % 10.2 L Monocytes % 4.1 Eosinophils % 0.0 Basophils % 0.3 Nucleated Red Blood Cells % 0.0 Neutrophils # 8.5 H Lymphocytes # 1.1 Monocytes # 0.4 Eosinophils # 0.0 Basophils # 0.0 Nucleated Red Blood Cells # 0.0 Sodium Level 144 Potassium Level 4.6 Chloride Level 100 Carbon Dioxide Level 28 Anion Gap 21 H Blood Urea Nitrogen 18 Creatinine 0.81 Glucose Level 137 Calcium Level 9.5 Triglycerides Level 72 Cholesterol Level 167 LDL Cholesterol, Calculated 110 HDL Cholesterol 43 Cholesterol/HDL Ratio 3.8 Medications Medications Current Medications Acetaminophen (Tylenol Tab) 650 mg Q6H PRN PO PAIN AND OR ELEVATED TEMP; Start 05/25/17 at 21:00 Nicotine (Nicoderm 21 Mg/ 24hr) 1 patch DAILY TRANSDERM ; Start 05/26/17 at 09: 00 Methylprednisolone Sodium Succinate (Solu-Medrol) 60 mg BID IV Last administered on 05/29/17t 08:51; Admin Dose 60 MG; Start 05/25/17 at 21:00 Ondansetron HCl (Zofran Inj) 4 mg Q6H PRN IV NAUSEA AND/OR VOMITING; Start at 21:00 Famotidine (Pepcid) 20 mg BID PO Last administered on 05/29/17 08:47; Admin Dose 20 MG; Start 05/26/17 at 09:00 Salmeterol Xinafoate/ Fluticasone (Advair 250/50 Diskus) 1 inh BID INH Last administered on 05/29/17 08:46; Admin Dose 1 INH; Start 05/26/17 at 09:00 Atorvastatin Calcium (Lipitor) 20 mg HS PO Last administered on 05/28/17 21:25 ; Admin Dose 20 MG; Start 05/26/17 at 21:00 Promethazine HCl/ Codeine 5 ml 5 ml Q4H PRN PO COUGH Last administered on 19:47; Admin Dose 5 ML; Start 05/26/17 at 19:00 Sodium Chloride 1,000 ml @ 100 mls/hr Q10H IV Last administered on 05/29/17 07:10; Admin Dose 100 MLS/HR; Start 05/27/17 at 10:00 Ceftriaxone Sodium (Rocephin) 50 ml @ 100 mls/hr Q24H IVPB Last administered on 05/28/17 15:31; Admin Dose 100 MLS/HR; Start 05/28/17 at 11:00 Azithromycin (Zithromax) 500 mg DAILY PO Last administered on 05/29/17 08:48; Admin Dose 500 MG; Start 05/28/17 at 11:00; Stop 06/02/17 at 10:59 MELISSA JJ MD May 29, 2017 10:38
--- NOTE | 2017-05-29 10:47 | CONS ---
Date/Time of Note Date/Time of Note DATE: 05/29/17 TIME: 10:45 Assessment/Plan Assessment/Plan Additional Assessment/Plan Assessment and recommendations; 1. Patient admitted with a long-standing history of severe cough associated with widespread mediastinal and hilar adenopathy, findings are likely indicative of underlying sarcoidosis. Malignancy is unlikely. Continue current treatment. Patient scheduled for mediastinoscopy early next week. Consultation Date/Type/Reason Admit Date/Time May 25, 2017 at 19:30 Initial Consult Date 05/29/17 Type of Consultation: Pulmonary Referring Provider: JACKIE RUDOLPH 24 HR Interval Summary Free Text/Dictation Patient condition stable. Remains awake alert. Complains of scant cough. Complains of very minimal wheezing. General exam; middle-aged male, awake alert currently in no distress. Ambulatory in the room. Exam/Review of Systems Vital Signs Vitals Vital Signs Date Time Temp Pulse Resp B/P Pulse Ox O2 Delivery O2 Flow Rate FiO2 05/29/17 07:03 97.6 74 18 115/68 95 05/28/17 20:00 Nasal Cannula 2.0 05/26/17 20:17 30 Intake and Output 05/28/17 05/28/17 05/29/17 15:00 23:00 07:00 Intake Total 390 ml 2510 ml 1500 ml Output Total 350 ml Balance 390 ml 2510 ml 1150 ml Exam HEENT exam; supple neck, no JVD. No lymphadenopathy. Midline trachea. No thyromegaly. Pharynx is clear. Patient has good dentition. Chest exam; clear to auscultation. S1-S2 audible, no murmurs. Regular rhythm. Abdomen exam; soft, no organomegaly. Bowel sounds audible. Extremity exam; no peripheral edema. No clubbing. Pulses 2+ bilaterally. [employer] exam; no focal deficit. Results Result Diagram: 05/29/17 0543 05/29/17 0543 Results 24 hrs Laboratory Tests Test 05/28/17 11:55 05/29/17 05:43 Lactate Dehydrogenase 436 HIV (1&2) Antibody NEGATIVE White Blood Count 10.4 Red Blood Count 5.01 Hemoglobin 14.5 Hematocrit 44.3 Mean Corpuscular Volume 88.4 Mean Corpuscular Hemoglobin 28.9 L Mean Corpuscular Hemoglobin Concent 32.7 Red Cell Distribution Width 13.8 Platelet Count 285 Mean Platelet Volume 9.5 Neutrophils % 81.8 H Lymphocytes % 10.2 L Monocytes % 4.1 Eosinophils % 0.0 Basophils % 0.3 Nucleated Red Blood Cells % 0.0 Neutrophils # 8.5 H Lymphocytes # 1.1 Monocytes # 0.4 Eosinophils # 0.0 Basophils # 0.0 Nucleated Red Blood Cells # 0.0 Sodium Level 144 Potassium Level 4.6 Chloride Level 100 Carbon Dioxide Level 28 Anion Gap 21 H Blood Urea Nitrogen 18 Creatinine 0.81 Glucose Level 137 Calcium Level 9.5 Triglycerides Level 72 Cholesterol Level 167 LDL Cholesterol, Calculated 110 HDL Cholesterol 43 Cholesterol/HDL Ratio 3.8 Medications Medications Current Medications Acetaminophen (Tylenol Tab) 650 mg Q6H PRN PO PAIN AND OR ELEVATED TEMP; Start 05/25/17 at 21:00 Nicotine (Nicoderm 21 Mg/ 24hr) 1 patch DAILY TRANSDERM ; Start 05/26/17 at 09: 00 Methylprednisolone Sodium Succinate (Solu-Medrol) 60 mg BID IV Last administered on 05/29/17 08:51; Admin Dose 60 MG; Start 05/25/17 at 21:00 Ondansetron HCl (Zofran Inj) 4 mg Q6H PRN IV NAUSEA AND/OR VOMITING; Start at 21:00 Famotidine (Pepcid) 20 mg BID PO Last administered on 05/29/17 08:47; Admin Dose 20 MG; Start 05/26/17 at 09:00 Salmeterol Xinafoate/ Fluticasone (Advair 250/50 Diskus) 1 inh BID INH Last administered on 05/29/17 08:46; Admin Dose 1 INH; Start 05/26/17 at 09:00 Atorvastatin Calcium (Lipitor) 20 mg HS PO Last administered on 05/28/17 21:25 ; Admin Dose 20 MG; Start 05/26/17 at 21:00 Promethazine HCl/ Codeine 5 ml 5 ml Q4H PRN PO COUGH Last administered on 19:47; Admin Dose 5 ML; Start 05/26/17 at 19:00 Sodium Chloride 1,000 ml @ 100 mls/hr Q10H IV Last administered on 05/29/17 07:10; Admin Dose 100 MLS/HR; Start 05/27/17 at 10:00 Ceftriaxone Sodium (Rocephin) 50 ml @ 100 mls/hr Q24H IVPB Last administered on 05/28/17 15:31; Admin Dose 100 MLS/HR; Start 05/28/17 at 11:00 Azithromycin (Zithromax) 500 mg DAILY PO Last administered on 05/29/17 08:48; Admin Dose 500 MG; Start 05/28/17 at 11:00; Stop 06/02/17 at 10:59 TOÑITO LARA May 29, 2017 10:46
[2017-05-29] MEDS: CEFTRIAXONE 1 GM/50 ML (PMX) 50 ML IVPB SCH (11:39)
--- NOTE | 2017-05-29 12:55 | PN ---
Date/Time of Note Date/Time of Note DATE: 05/29/17 TIME: 12:52 Assessment/Plan VTE Prophylaxis VTE Prophylaxis Intervention: SCD's Lines/Catheters IV [facility] Peripheral IV Assessment/Plan Chief Complaint/Hosp Course 1. Chronic Cough [address] chest shows clear lungs but extensive pulmonary lymphadenopathy-etiology infectious versus neoplasm CT abdomen and pelvis shows no evidence of malignancy Patient denies weight loss, night sweats or hemoptysis, although upon QuantiFERON gold to rule out TB, AFB sputum is negative 1, follow-up on 2 remaining samples Follow-up on coccidiomycosis antibody, HIV is negative Pulmonary and ID consults appreciated Continue antibiotics and steroids for now Patient will need a mediastinoscopy, CT surgeon aware Patient does have a history of smoking but reportedly not excessively 2. History of dyslipidemia Continue statin Lipid panel within normal limits Prophylaxis: SCDs Problems: Subjective 24 Hr Interval Summary Constitutional: no complaints Exam/Review of Systems Vital Signs Vitals Vital Signs Date Time Temp Pulse Resp B/P Pulse Ox O2 Delivery O2 Flow Rate FiO2 05/29/17 07:03 97.6 74 18 115/68 95 05/28/17 20:00 Nasal Cannula 2.0 05/26/17 20:17 30 Intake and Output 05/28/17 05/28/17 05/29/17 15:00 23:00 07:00 Intake Total 390 ml 2510 ml 1500 ml Output Total 350 ml Balance 390 ml 2510 ml 1150 ml Exam Constitutional: alert, oriented Respiratory: clear to auscultation Cardiovascular: regular rate and rhythm Gastrointestinal: soft, No distended Musculoskeletal: nl extremities to inspection Results Result Diagram: 05/29/17 0543 05/29/17 0543 Results 24 hrs Laboratory Tests Test 05/29/17 05:43 White Blood Count 10.4 Red Blood Count 5.01 Hemoglobin 14.5 Hematocrit 44.3 Mean Corpuscular Volume 88.4 Mean Corpuscular Hemoglobin 28.9 L Mean Corpuscular Hemoglobin Concent 32.7 Red Cell Distribution Width 13.8 Platelet Count 285 Mean Platelet Volume 9.5 Neutrophils % 81.8 H Lymphocytes % 10.2 L Monocytes % 4.1 Eosinophils % 0.0 Basophils % 0.3 Nucleated Red Blood Cells % 0.0 Neutrophils # 8.5 H Lymphocytes # 1.1 Monocytes # 0.4 Eosinophils # 0.0 Basophils # 0.0 Nucleated Red Blood Cells # 0.0 Sodium Level 144 Potassium Level 4.6 Chloride Level 100 Carbon Dioxide Level 28 Anion Gap 21 H Blood Urea Nitrogen 18 Creatinine 0.81 Glucose Level 137 Calcium Level 9.5 Triglycerides Level 72 Cholesterol Level 167 LDL Cholesterol, Calculated 110 HDL Cholesterol 43 Cholesterol/HDL Ratio 3.8 Medications Medications Current Medications Acetaminophen (Tylenol Tab) 650 mg Q6H PRN PO PAIN AND OR ELEVATED TEMP; Start 05/25/17 at 21:00 Nicotine (Nicoderm 21 Mg/ 24hr) 1 patch DAILY TRANSDERM ; Start 05/26/17 at 09: 00 Methylprednisolone Sodium Succinate (Solu-Medrol) 60 mg BID IV Last administered on 05/29/17 08:51; Admin Dose 60 MG; Start 05/25/17 at 21:00 Ondansetron HCl (Zofran Inj) 4 mg Q6H PRN IV NAUSEA AND/OR VOMITING; Start at 21:00 Famotidine (Pepcid) 20 mg BID PO Last administered on 05/29/17 08:47; Admin Dose 20 MG; Start 05/26/17 at 09:00 Salmeterol Xinafoate/ Fluticasone (Advair 250/50 Diskus) 1 inh BID INH Last administered on 05/29/17 08:46; Admin Dose 1 INH; Start 05/26/17 at 09:00 Atorvastatin Calcium (Lipitor) 20 mg HS PO Last administered on 05/28/17 21:25 ; Admin Dose 20 MG; Start 05/26/17 at 21:00 Promethazine HCl/ Codeine 5 ml 5 ml Q4H PRN PO COUGH Last administered on 19:47; Admin Dose 5 ML; Start 05/26/17 at 19:00 Sodium Chloride 1,000 ml @ 100 mls/hr Q10H IV Last administered on 05/29/17 07:10; Admin Dose 100 MLS/HR; Start 05/27/17 at 10:00 Ceftriaxone Sodium (Rocephin) 50 ml @ 100 mls/hr Q24H IVPB Last administered on 05/29/17 11:39; Admin Dose 100 MLS/HR; Start 05/28/17 at 11:00 Azithromycin (Zithromax) 500 mg DAILY PO Last administered on 05/29/17 08:48; Admin Dose 500 MG; Start 05/28/17 at 11:00; Stop 06/02/17 at 10:59 JACKIE RUDOLPH May 29, 2017 12:55
--- NOTE | 2017-05-29 14:24 | CONS ---
Date/Time of Note Date/Time of Note DATE: 05/29/17 TIME: 14:22 Assessment/Plan Assessment/Plan Chief Complaint/Hosp Course assessment/impression - chronic cough of unclear etiology: possible etiologies include infectious ( bacterial, fungal, mycobacterial), vasculitis, reactive and neoplastic - possibly superimposed viral bronchitis - extensive mediastinal and hilar lymphadenopathy with clear parenchyma - visual change - extensive exposure to construction dusts recommendations - pending results: AFB sputum x1, cocci serology, respiratory fungal culture, 1, 4-btqw-G-glucan, urine histoplasma antigen, urine legionella antigen, cryptococcal antigen, nasopharyngeal swab (influenza A/B/H1N1, bordetella pertussis, RSV, respiratory viruses), - continue ceftriaxone and azithromycin Management d/w patient, GAVIN Hylton, and Dr. Hare Problems: Consultation Date/Type/Reason Admit Date/Time May 25, 2017 at 19:30 Initial Consult Date 05/29/17 Type of Consultation: Infectious Disease Referring Provider: JACKIE RUDOLPH 24 HR Interval Summary Free Text/Dictation Still with productive cough. Afebrile and stable on stable on room air. Exam/Review of Systems Vital Signs Vitals Vital Signs Date Time Temp Pulse Resp B/P Pulse Ox O2 Delivery O2 Flow Rate FiO2 05/29/17 07:03 97.6 74 18 115/68 95 05/28/17 20:00 Nasal Cannula 2.0 05/26/17 20:17 30 Intake and Output 05/28/17 05/28/17 05/29/17 15:00 23:00 07:00 Intake Total 390 ml 2510 ml 1500 ml Output Total 350 ml Balance 390 ml 2510 ml 1150 ml Exam Constitutional: alert, oriented, well developed Psych: no complaints Head: atraumatic, normocephalic Eyes: nl sclera ENMT: nl external ears & nose Neck: supple Respiratory: clear to auscultation, normal air movement Cardiovascular: nl pulses, regular rate and rhythm Gastrointestinal: non-tender, soft Musculoskeletal: nl extremities to inspection Extremities: normal pulses, No clubbing, No cyanosis, No edema Neurological: nl mental status, nl speech, No focal weakness Skin: nl turgor, No rash or lesions Results Result Diagram: 05/29/17 0543 05/29/17 0543 Results 24 hrs Laboratory Tests Test 05/29/17 05:43 White Blood Count 10.4 Red Blood Count 5.01 Hemoglobin 14.5 Hematocrit 44.3 Mean Corpuscular Volume 88.4 Mean Corpuscular Hemoglobin 28.9 L Mean Corpuscular Hemoglobin Concent 32.7 Red Cell Distribution Width 13.8 Platelet Count 285 Mean Platelet Volume 9.5 Neutrophils % 81.8 H Lymphocytes % 10.2 L Monocytes % 4.1 Eosinophils % 0.0 Basophils % 0.3 Nucleated Red Blood Cells % 0.0 Neutrophils # 8.5 H Lymphocytes # 1.1 Monocytes # 0.4 Eosinophils # 0.0 Basophils # 0.0 Nucleated Red Blood Cells # 0.0 Sodium Level 144 Potassium Level 4.6 Chloride Level 100 Carbon Dioxide Level 28 Anion Gap 21 H Blood Urea Nitrogen 18 Creatinine 0.81 Glucose Level 137 Calcium Level 9.5 Triglycerides Level 72 Cholesterol Level 167 LDL Cholesterol, Calculated 110 HDL Cholesterol 43 Cholesterol/HDL Ratio 3.8 Medications Medications Current Medications Acetaminophen (Tylenol Tab) 650 mg Q6H PRN PO PAIN AND OR ELEVATED TEMP; Start 05/25/17 at 21:00 Nicotine (Nicoderm 21 Mg/ 24hr) 1 patch DAILY TRANSDERM ; Start 05/26/17 at 09: 00 Methylprednisolone Sodium Succinate (Solu-Medrol) 60 mg BID IV Last administered on 05/29/17 08:51; Admin Dose 60 MG; Start 05/25/17 at 21:00 Ondansetron HCl (Zofran Inj) 4 mg Q6H PRN IV NAUSEA AND/OR VOMITING; Start at 21:00 Famotidine (Pepcid) 20 mg BID PO Last administered on 05/29/17 08:47; Admin Dose 20 MG; Start 05/26/17 at 09:00 Salmeterol Xinafoate/ Fluticasone (Advair 250/50 Diskus) 1 inh BID INH Last administered on 05/29/17 08:46; Admin Dose 1 INH; Start 05/26/17 at 09:00 Atorvastatin Calcium (Lipitor) 20 mg HS PO Last administered on 05/28/17 21:25 ; Admin Dose 20 MG; Start 05/26/17 at 21:00 Promethazine HCl/ Codeine 5 ml 5 ml Q4H PRN PO COUGH Last administered on 19:47; Admin Dose 5 ML; Start 05/26/17 at 19:00 Sodium Chloride 1,000 ml @ 100 mls/hr Q10H IV Last administered on 05/29/17 07:10; Admin Dose 100 MLS/HR; Start 05/27/17 at 10:00 Ceftriaxone Sodium (Rocephin) 50 ml @ 100 mls/hr Q24H IVPB Last administered on 05/29/17 11:39; Admin Dose 100 MLS/HR; Start 05/28/17 at 11:00 Azithromycin (Zithromax) 500 mg DAILY PO Last administered on 05/29/17 08:48; Admin Dose 500 MG; Start 05/28/17 at 11:00; Stop 06/02/17 at 10:[address] abd/pelvis 05/27/17: 1. Right perihilar hilar lymphadenopathy is partially imaged and better demonstrated on prior CT chest of 05/26/2017. 2. Bilateral nephrolithiasis without evidence of hydronephrosis. 3. Borderline enlarged upper para-aortic lymph nodes. 4. Colonic diverticulosis without evidence of acute diverticulitis. CT chest 05/26/17: 1. Extensive lymphadenopathy throughout the mediastinum and buzz consistent with probable neoplasm. Various inflammatory and infectious processes may also give this appearance. Clinical correlation is advised. 2. Clear lungs. 3. Mild degenerative changes of the spine. CARLIE SEPULVEDA NP May 29, 2017 14:24
[2017-05-29 14:25] VITALS: BP 108/68; RESP 20
[2017-05-29 16:42] LABS: TB-NIL <0.00 IU/mL
[2017-05-29 19:49] VITALS: BP 108/71; RESP 18
[2017-05-29] MEDS: ATORVASTATIN 20 MG TAB PO SCH (21:54)
[2017-05-30 01:23] VITALS: BP 117/73; RESP 18
[2017-05-30] MEDS: SOD CHLORIDE 0.45% 1,000 ML IV SCH ×4 (04:59→20:10)
[2017-05-30 08:40] VITALS: BP 119/72; RESP 18
[2017-05-30] MEDS: NICOTINE (21 MG/24 HR) PATCH TRANSDERM SCH (09:00)
[2017-05-30] MEDS: FAMOTIDINE 20 MG TAB PO SCH ×2 (09:16→20:05)
[2017-05-30] MEDS: METHYLPREDNISOLONE 125 MG INJ IV SCH ×2 (09:17→20:06)
[2017-05-30] MEDS: AZITHROMYCIN 250 MG TAB PO SCH (09:17)
[2017-05-30] MEDS: SALMETEROL/FLUTICASONE 250/50 INHA INH SCH ×2 (09:17→20:11)
[2017-05-30] MEDS: CEFTRIAXONE 1 GM/50 ML (PMX) 50 ML IVPB SCH (13:08)
[2017-05-30 14:13] VITALS: BP 100/65; RESP 20
--- NOTE | 2017-05-30 17:52 | PN ---
Date/Time of Note Date/Time of Note DATE: 05/30/17 TIME: 17:49 Assessment/Plan VTE Prophylaxis VTE Prophylaxis Intervention: SCD's Lines/Catheters IV [facility]ter Type (from [facility]): Peripheral IV Urinary Cath still in place: No Assessment/Plan Chief Complaint/Hosp Course 1. Chronic Cough CT chest shows clear lungs but extensive pulmonary lymphadenopathy-etiology infectious versus neoplasm CT abdomen and pelvis shows no evidence of malignancy TB ruled out with negative QuantiFERON and negative AFB sputum 3, DC isolation HIV negative Follow-up on coccidiomycosis antibody, HIV is negative Pulmonary and ID consults appreciated Continue antibiotics and steroids for now Patient will need a mediastinoscopy, CT surgeon aware and plan is to perform early next week Patient does have a history of smoking but reportedly not excessively 2. History of dyslipidemia Continue statin Lipid panel within normal limits Prophylaxis: SCDs Problems: Subjective 24 Hr Interval Summary Constitutional: no complaints Exam/Review of Systems Vital Signs Vitals Vital Signs Date Time Temp Pulse Resp B/P Pulse Ox O2 Delivery O2 Flow Rate FiO2 05/30/17 14:13 98.0 68 20 100/65 94 05/30/17 08:00 Nasal Cannula 05/29/17 20:00 2.0 05/26/17 20:17 30 Intake and Output 05/29/17 05/29/17 05/30/17 15:00 23:00 07:00 Intake Total 150 ml 2060 ml 1700 ml Output Total 400 ml 1200 ml Balance 150 ml 1660 ml 500 ml Exam Constitutional: alert, oriented Respiratory: clear to auscultation Cardiovascular: regular rate and rhythm Gastrointestinal: soft, No distended Musculoskeletal: nl extremities to inspection Results Result Diagram: 05/29/17 0543 05/29/17 0543 Medications Medications Current Medications Acetaminophen (Tylenol Tab) 650 mg Q6H PRN PO PAIN AND OR ELEVATED TEMP; Start 05/25/17 at 21:00 Nicotine (Nicoderm 21 Mg/ 24hr) 1 patch DAILY TRANSDERM ; Start 05/26/17 at 09: 00 Methylprednisolone Sodium Succinate (Solu-Medrol) 60 mg BID IV Last administered on 05/30/17t 09:17; Admin Dose 60 MG; Start 05/25/17 at 21:00 Ondansetron HCl (Zofran Inj) 4 mg Q6H PRN IV NAUSEA AND/OR VOMITING; Start at 21:00 Famotidine (Pepcid) 20 mg BID PO Last administered on 05/30/17 09:16; Admin Dose 20 MG; Start 05/26/17 at 09:00 Salmeterol Xinafoate/ Fluticasone (Advair 250/50 Diskus) 1 inh BID INH Last administered on 05/30/17 09:17; Admin Dose 1 INH; Start 05/26/17 at 09:00 Atorvastatin Calcium (Lipitor) 20 mg HS PO Last administered on 05/29/17 21:54 ; Admin Dose 20 MG; Start 05/26/17 at 21:00 Promethazine HCl/ Codeine 5 ml 5 ml Q4H PRN PO COUGH Last administered on 19:47; Admin Dose 5 ML; Start 05/26/17 at 19:00 Sodium Chloride 1,000 ml @ 100 mls/hr Q10H IV Last administered on 05/30/17 04:59; Admin Dose 100 MLS/HR; Start 05/27/17 at 10:00 Ceftriaxone Sodium (Rocephin) 50 ml @ 100 mls/hr Q24H IVPB Last administered on 05/30/17 13:08; Admin Dose 100 MLS/HR; Start 05/28/17 at 11:00 Azithromycin (Zithromax) 500 mg DAILY PO Last administered on 05/30/17 09:17; Admin Dose 500 MG; Start 05/28/17 at 11:00; Stop 06/02/17 at 10:59 Eye Lubricant (Artificial Tears Oph) 2 drop BID PRN BOTH EYES DRY EYES; Start 05/30/17 at 16:00 JACKIE RUDOLPH May 30, 2017 17:52
--- NOTE | 2017-05-30 18:14 | PN ---
Date/Time of Note Date/Time of Note DATE: 05/30/17 TIME: 18:12 Assessment/Plan Lines/Catheters IV Catheter Type (from Nrsg): Peripheral IV Coyd in Place (from Nrsg): No Assessment/Plan Chief Complaint/Hosp Course Mediastinal adenopathy Plan for mediastinoscopy and biopsy next week Discussed with the patient Problems: Subjective 24 Hr Interval Summary Constitutional: improved Pain Control: mild Exam/Review of Systems Vital Signs Vitals Vital Signs Date Time Temp Pulse Resp B/P Pulse Ox O2 Delivery O2 Flow Rate FiO2 05/30/17 14:13 98.0 68 20 100/65 94 05/30/17 08:00 Nasal Cannula 05/29/17 20:00 2.0 05/26/17 20:17 30 Intake and Output 05/29/17 05/29/17 05/30/17 15:00 23:00 07:00 Intake Total 150 ml 2060 ml 1700 ml Output Total 400 ml 1200 ml Balance 150 ml 1660 ml 500 ml Exam Eyes: EOMI, nl conjunctiva, nl lids, nl sclera ENMT: mucosa pink and moist, nl external ears & nose, nl lips & teeth, nl nasal mucosa & septum Neck: non-tender, supple Respiratory: clear to auscultation, normal air movement Cardiovascular: nl pulses, regular rate and rhythm Gastrointestinal: nl liver, spleen, non-tender, soft Results Result Diagram: 05/29/17 0543 05/29/17 0543 MELISSA JJ MD May 30, 2017 18:14
[2017-05-30] MEDS: ARTIFICIAL TEARS 15 ML OPH BOTH EYES PRN (18:35)
[2017-05-30] MEDS: ATORVASTATIN 20 MG TAB PO SCH (20:06)
[2017-05-30 20:24] VITALS: BP 116/74; RESP 18
[2017-05-31 02:00] VITALS: BP 111/72; RESP 18
[2017-05-31] MEDS: SOD CHLORIDE 0.45% 1,000 ML IV SCH ×5 (04:00→20:00)
[2017-05-31 07:17] VITALS: BP 112/68; RESP 18
[2017-05-31] MEDS: AZITHROMYCIN 250 MG TAB PO SCH (08:36)
[2017-05-31] MEDS: FAMOTIDINE 20 MG TAB PO SCH ×2 (08:36→21:30)
[2017-05-31] MEDS: NICOTINE (21 MG/24 HR) PATCH TRANSDERM SCH (08:37)
[2017-05-31] MEDS: METHYLPREDNISOLONE 125 MG INJ IV SCH ×2 (08:37→21:30)
[2017-05-31] MEDS: SALMETEROL/FLUTICASONE 250/50 INHA INH SCH ×2 (08:37→21:00)
[2017-05-31] MEDS: ARTIFICIAL TEARS 15 ML OPH BOTH EYES PRN (09:48)
[2017-05-31] MEDS: CEFTRIAXONE 1 GM/50 ML (PMX) 50 ML IVPB SCH (11:01)
--- NOTE | 2017-05-31 11:55 | PN ---
Date/Time of Note Date/Time of Note DATE: 05/31/17 TIME: 11:54 Assessment/Plan VTE Prophylaxis VTE Prophylaxis Intervention: ambulation, SCD's Lines/Catheters IV [facility] Peripheral IV Urinary Cath still in place: No Assessment/Plan Chief Complaint/Hosp Course 1. Chronic cough. Chest CT showing extensive lymphadenopathy throughout the mediastinum and buzz consistent with probable neoplasm. The patient has been ruled out for any underlying pulmonary tuberculosis. Being followed by infectious diseases, pulmonary, and thoracic surgery. Plan for a mediastinoscopy. 2. Dyslipidemia. Continue statins. Fasting lipid panel satisfactory. 3. Nicotine use. Continue nicotine patch. 4. Fluids, electrolytes, and nutrition. Low-cholesterol diet. 5. DVT prophylaxis. Ambulation. 6. Gastrointestinal prophylaxis. Histamine 2 receptor blockers. 7. Plan. Continue antimicrobials as per infectious diseases. Await mediastinoscopy. Case discussed with Dr. Yee Problems: Subjective 24 Hr Interval Summary Free Text/Dictation "Feeling better." Exam/Review of Systems Vital Signs Vitals Vital Signs Date Time Temp Pulse Resp B/P Pulse Ox O2 Delivery O2 Flow Rate FiO2 05/31/17 07:17 98.1 82 18 112/68 95 05/30/17 08:00 Nasal Cannula 05/29/17 20:00 2.0 Intake and Output 05/30/17 05/30/17 05/31/17 15:00 23:00 07:00 Intake Total 50 ml 1860 ml 600 ml Output Total 450 ml Balance 50 ml 1860 ml 150 ml Exam General: Adequately build 57 year-old male lying in bed in no apparent distress. HEENT: Normocephalic, atraumatic. Eyes: Anicteric sclerae, conjunctivae clear. ENT: Nasal septum midline, oral mucosa moist. Neck supple, no JVD noticed. Respiratory: Bilaterally diminished breath sounds. No use of accessory muscles of respiration. Scattered rhonchi. Cardiovascular: S1, S2 heard. No murmurs or gallops. Abdomen: Soft, nontender, and nondistended. Bowel sounds positive in all 4 quadrants. Genitourinary: Deferred. Extremities: No cyanosis, no clubbing, no edema. Peripheral pulses palpable. Neurologic: Cranial nerves II through XII grossly intact. The patient is awake, alert, and oriented. Skin: Normal skin turgor. No skin rashes. Results Result Diagram: 05/29/17 0543 05/29/1743 Medications Medications Current Medications Acetaminophen (Tylenol Tab) 650 mg Q6H PRN PO PAIN AND OR ELEVATED TEMP; Start 05/25/17 at 21:00 Nicotine (Nicoderm 21 Mg/ 24hr) 1 patch DAILY TRANSDERM ; Start 05/26/17 at 09: 00 Methylprednisolone Sodium Succinate (Solu-Medrol) 60 mg BID IV Last administered on 05/31/17 08:37; Admin Dose 60 MG; Start 05/25/17 at 21:00 Ondansetron HCl (Zofran Inj) 4 mg Q6H PRN IV NAUSEA AND/OR VOMITING; Start at 21:00 Famotidine (Pepcid) 20 mg BID PO Last administered on 05/31/17 08:36; Admin Dose 20 MG; Start 05/26/17 at 09:00 Salmeterol Xinafoate/ Fluticasone (Advair 250/50 Diskus) 1 inh BID INH Last administered on 05/31/17 08:37; Admin Dose 1 INH; Start 05/26/17 at 09:00 Atorvastatin Calcium (Lipitor) 20 mg HS PO Last administered on 05/30/17 20:06 ; Admin Dose 20 MG; Start 05/26/17 at 21:00 Promethazine HCl/ Codeine 5 ml 5 ml Q4H PRN PO COUGH Last administered on 19:47; Admin Dose 5 ML; Start 05/26/17 at 19:00 Sodium Chloride 1,000 ml @ 100 mls/hr Q10H IV Last administered on 05/31/17 06:13; Admin Dose 100 MLS/HR; Start 05/27/17 at 10:00 Ceftriaxone Sodium (Rocephin) 50 ml @ 100 mls/hr Q24H IVPB Last administered on 05/31/17 11:01; Admin Dose 100 MLS/HR; Start 05/28/17 at 11:00 Azithromycin (Zithromax) 500 mg DAILY PO Last administered on 05/31/17 08:36; Admin Dose 500 MG; Start 05/28/17 at 11:00; Stop 06/02/17 at 10:59 Eye Lubricant (Artificial Tears Oph) 2 drop BID PRN BOTH EYES DRY EYES Last administered on 7/24/17at 09:48; Admin Dose 2 DROP; Start 05/30/17 at 16:00 MARY GIORDANO NP May 31, 2017 11:55
--- NOTE | 2017-05-31 12:02 | CONS ---
Date/Time of Note Date/Time of Note DATE: 05/31/17 TIME: 11:50 Assessment/Plan Assessment/Plan Chief Complaint/Hosp Course assessment/impression - chronic cough of unclear etiology: possible etiologies include infectious ( bacterial, fungal, mycobacterial), vasculitis, reactive and neoplastic. 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 - pending results: cocci serology, respiratory fungal culture, 1,4-qeyd-E-glucan , urine histoplasma antigen, urine legionella antigen, cryptococcal antigen, nasopharyngeal swab (influenza A/B/H1N1, bordetella pertussis, RSV, respiratory viruses) - will order pertinent lab from biopsy, possibly tomorrow: biopsy, AFB, fungal, bacterial Cx, mycobacerium tuberculosis NAAT - also asked micro lab ([facility]) to add mycobacerium tuberculosis NAAT to Pt's sputum sample from 05/29/2017 - continue ceftriaxone (05/28/2017-) and azithromycin (05/28/2017-06/02/2017 planned). 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[facility] Problems: Consultation Date/Type/Reason Admit Date/Time May 25, 2017 at 19:30 Initial Consult Date 05/29/17 Type of Consultation: Infectious Disease Referring Provider: JACKIE RUDOLPH 24 HR Interval Summary Constitutional: improved Detailed Summary Eyes: no complaints ENT: other (hoarseness) Respiratory: cough, sputum, No pain, No pleuritic pain, No shortness of breath, No wheezing Cardiovascular: No chest pain Gastrointestinal: no complaints Genitourinary: no complaints Musculoskeletal: no complaints Skin: no complaints Neurologic: no complaints Exam/Review of Systems Vital Signs Vitals Vital Signs Date Time Temp Pulse Resp B/P Pulse Ox O2 Delivery O2 Flow Rate FiO2 05/31/17 07:17 98.1 82 18 112/68 95 05/30/17 08:00 Nasal Cannula 05/29/17 20:00 2.0 Intake and Output 05/30/17 05/30/17 05/31/17 15:00 23:00 07:00 Intake Total 50 ml 1860 ml 600 ml Output Total 450 ml Balance 50 ml 1860 ml 150 ml Exam Constitutional: alert, oriented, well developed Psych: nl mood/affect, no complaints Head: atraumatic, normocephalic Eyes: nl conjunctiva, nl lids ENMT: nl external ears & nose, nl nasal mucosa & septum Neck: supple Respiratory: crackles/rales, wheezing Cardiovascular: nl pulses, regular rate and rhythm Gastrointestinal: non-tender, soft Musculoskeletal: nl extremities to inspection Extremities: No edema Results Result Diagram: 05/29/1754205/29/17542 Medications Medications Current Medications Acetaminophen (Tylenol Tab) 650 mg Q6H PRN PO PAIN AND OR ELEVATED TEMP; Start 05/25/17 at 21:00 Nicotine (Nicoderm 21 Mg/ 24hr) 1 patch DAILY TRANSDERM ; Start 05/26/17 at 09: 00 Methylprednisolone Sodium Succinate (Solu-Medrol) 60 mg BID IV Last administered on 05/31/17 08:37; Admin Dose 60 MG; Start 05/25/17 at 21:00 Ondansetron HCl (Zofran Inj) 4 mg Q6H PRN IV NAUSEA AND/OR VOMITING; Start at 21:00 Famotidine (Pepcid) 20 mg BID PO Last administered on 05/31/17 08:36; Admin Dose 20 MG; Start 05/26/17 at 09:00 Salmeterol Xinafoate/ Fluticasone (Advair 250/50 Diskus) 1 inh BID INH Last administered on 05/31/17 08:37; Admin Dose 1 INH; Start 05/26/17 at 09:00 Atorvastatin Calcium (Lipitor) 20 mg HS PO Last administered on 05/30/17 20:06 ; Admin Dose 20 MG; Start 05/26/17 at 21:00 Promethazine HCl/ Codeine 5 ml 5 ml Q4H PRN PO COUGH Last administered on 19:47; Admin Dose 5 ML; Start 05/26/17 at 19:00 Sodium Chloride 1,000 ml @ 100 mls/hr Q10H IV Last administered on 05/31/17 06:13; Admin Dose 100 MLS/HR; Start 05/27/17 at 10:00 Ceftriaxone Sodium (Rocephin) 50 ml @ 100 mls/hr Q24H IVPB Last administered on 05/31/17 11:01; Admin Dose 100 MLS/HR; Start 05/28/17 at 11:00 Azithromycin (Zithromax) 500 mg DAILY PO Last administered on 05/31/17 08:36; Admin Dose 500 MG; Start 05/28/17 at 11:00; Stop 06/02/17 at 10:59 Eye Lubricant (Artificial Tears Oph) 2 drop BID PRN BOTH EYES DRY EYES Last administered on 05/31/17 09:48; Admin Dose 2 DROP; Start 05/30/17 at 16:00 LAVERNE WOOTEN M.D. May 31, 2017 12:01
--- NOTE | 2017-05-31 12:11 | CONS ---
Date/Time of Note Date/Time of Note DATE: 05/31/17 TIME: 12:09 Consult Date/Type/Reason Admit Date/Time May 25, 2017 at 19:30 Initial Consult Date 05/28/17 Type of Consultation: Pulmonary ICU Ordering Provider: JACKIE RUDOLPH Subjective Patient comfortable this morning. No shortness of breath Objective Vital Signs Date Time Temp Pulse Resp B/P Pulse Ox O2 Delivery O2 Flow Rate FiO2 05/31/17 07:17 98.1 82 18 112/68 95 05/30/17 08:00 Nasal Cannula 05/29/17 20:00 2.0 Intake and Output 05/30/17 05/30/17 05/31/17 14:59 22:59 06:59 Intake Total 50 ml 1860 ml 600 ml Output Total 450 ml Balance 50 ml 1860 ml 150 ml Exam GENERAL: Well-nourished well-developed gentleman comfortable at rest no acute distress VITAL SIGNS: per chart NECK: Supple. No JVD or lymphadenopathy. CARDIAC EXAM: S1, S2. No added sounds or murmurs. CHEST: clear bilaterally, No added sounds, rales or wheezes ABDOMEN: Soft, nontender. No guarding or rebound. EXTREMITIES: No cyanosis, clubbing or edema. NEUROLOGIC: Generalized weakness. No focal deficits. Results/Medications Result Diagram: 05/29/1743 05/29/17542 Medications Current Medications Acetaminophen (Tylenol Tab) 650 mg Q6H PRN PO PAIN AND OR ELEVATED TEMP; Start 05/25/17 at 21:00 Nicotine (Nicoderm 21 Mg/ 24hr) 1 patch DAILY TRANSDERM ; Start 05/26/17 at 09: 00 Methylprednisolone Sodium Succinate (Solu-Medrol) 60 mg BID IV Last administered on 05/31/17 08:37; Admin Dose 60 MG; Start 05/25/17 at 21:00 Ondansetron HCl (Zofran Inj) 4 mg Q6H PRN IV NAUSEA AND/OR VOMITING; Start at 21:00 Famotidine (Pepcid) 20 mg BID PO Last administered on 05/31/17 08:36; Admin Dose 20 MG; Start 05/26/17 at 09:00 Salmeterol Xinafoate/ Fluticasone (Advair 250/50 Diskus) 1 inh BID INH Last administered on 05/31/17 08:37; Admin Dose 1 INH; Start 05/26/17 at 09:00 Atorvastatin Calcium (Lipitor) 20 mg HS PO Last administered on 05/30/17 20:06 ; Admin Dose 20 MG; Start 05/26/17 at 21:00 Promethazine HCl/ Codeine 5 ml 5 ml Q4H PRN PO COUGH Last administered on 19:47; Admin Dose 5 ML; Start 05/26/17 at 19:00 Sodium Chloride 1,000 ml @ 100 mls/hr Q10H IV Last administered on 05/31/17 06:13; Admin Dose 100 MLS/HR; Start 05/27/17 at 10:00 Ceftriaxone Sodium (Rocephin) 50 ml @ 100 mls/hr Q24H IVPB Last administered on 05/31/17 11:01; Admin Dose 100 MLS/HR; Start 05/28/17 at 11:00 Azithromycin (Zithromax) 500 mg DAILY PO Last administered on 05/31/17 08:36; Admin Dose 500 MG; Start 05/28/17 at 11:00; Stop 06/02/17 at 10:59 Eye Lubricant (Artificial Tears Oph) 2 drop BID PRN BOTH EYES DRY EYES Last administered on 05/31/17 09:48; Admin Dose 2 DROP; Start 05/30/17 at 16:00 Assessment/Plan Chief Complaint/Hosp Course Assessment 1. Chronic cough for quite some time. Family states it is been over one year. He has had abnormal CT scan performed in the past and was being referred to pulmonary as an outpatient for further evaluation. Denies any history of TB no sick contacts. Patient does have a tobacco history. Differential diagnosis of lymphadenopathy includes malignancy, sarcoidosis, lymphoma and other inflammatory conditions. Plan 1. Sputum rule out TB, AFB negative 3. Consider DC respiratory isolation. 2. Patient will require mediastinoscopy for lymph node biopsy once cleared by infectious diseases. Problems: AMY BELLA MD, [facility] May 31, 2017 12:11
[2017-05-31 13:27] LABS: PARAINFLUENZA SRC NASOPHARYNGEAL
[2017-05-31 13:59] VITALS: BP 101/57; RESP 18
[2017-05-31 15:01] LABS: CRYPTOCOCCAL ANTIGEN - SOURCE Serum
--- NOTE | 2017-05-31 19:00 | RADRPT ---
PROCEDURE: XR Chest. CLINICAL INDICATION: Preoperative. TECHNIQUE: Single frontal view. COMPARISON: None. FINDINGS: The lungs are clear. The heart size is normal. There is no pleural effusion. There is no pneumothorax. IMPRESSION: 1. Normal chest radiograph. RPTAT: QQ .Jaun Ramos MD, Date Time Electronically viewed and signed by .Jaun Ramos MD, MD on 05/31/2017 19:00 .R/
[2017-05-31 20:00] VITALS: BP 97/58; RESP 18
[2017-05-31] MEDS: ATORVASTATIN 20 MG TAB PO SCH (21:30)
[2017-06-01] VITALS (22 sets, daily range): BP systolic 97–155; BP diastolic 55–86; PULSE 48–75; RESP 13–24
[2017-06-01] MEDS: SOD CHLORIDE 0.45% 1,000 ML IV SCH ×3 (04:30→17:31)
[2017-06-01 05:53] LABS: INR 1.01; PROTIME 13.3 Sec (12.2-14.2)
--- NOTE | 2017-06-01 07:17 | PN ---
Date/Time of Note Date/Time of Note DATE: 06/01/17 TIME: 07:15 Assessment/Plan VTE Prophylaxis VTE Prophylaxis Intervention: ambulation, SCD's Lines/Catheters [facility] Per[facility] IV Urinary Cath still in place: No Assessment/Plan Chief Complaint/Hosp Course 1. Chronic cough. Chest CT showing extensive lymphadenopathy throughout the mediastinum and buzz consistent with probable neoplasm. The patient has been ruled out for any underlying pulmonary tuberculosis. Being followed by infectious diseases, pulmonary, and thoracic surgery. Scheduled for a mediastinoscopy on 06/01/2017. 2. Dyslipidemia. Continue statins. Fasting lipid panel satisfactory. 3. Nicotine use. Continue nicotine patch. 4. Fluids, electrolytes, and nutrition. Low-cholesterol diet. 5. DVT prophylaxis. Ambulation. 6. Gastrointestinal prophylaxis. Histamine 2 receptor blockers. 7. Plan. Continue antimicrobials as per infectious diseases. Await mediastinoscopy. Case discussed with Dr. Yee The patient had an episode of chest pain around 8:40 AM. Patient verbalized the chest pain as substernal with radiation to the back. There was no associated radiation to the arm. There was no associated autonomic symptoms. Patient's chest pain relieved with IV morphine. Will obtain a 12-lead EKG and troponin. The patient's chest pain seems to be atypical. Problems: Subjective 24 Hr Interval Summary Free Text/Dictation The patient is scheduled for mediastinoscopy today. Exam/Review of Systems Vital Signs Vitals Vital Signs Date Time Temp Pulse Resp B/P Pulse Ox O2 Delivery O2 Flow Rate FiO2 06/01/17 06:44 75 99/69 06/01/17 05:52 95 21 06/01/17 02:59 98.1 18 05/30/17 08:00 Nasal Cannula 05/29/17 20:00 2.0 Intake and Output 05/31/17 05/31/17 06/01/17 15:00 23:00 07:00 Intake Total 2600 ml 1675 ml Output Total 550 ml Balance 2600 ml 1125 ml Exam General: Adequately build 57 year-old male lying in bed in no apparent distress. HEENT: Normocephalic, atraumatic. Eyes: Anicteric sclerae, conjunctivae clear. ENT: Nasal septum midline, oral mucosa moist. Neck supple, no JVD noticed. Respiratory: Bilaterally diminished breath sounds. No use of accessory muscles of respiration. Scattered rhonchi. Cardiovascular: S1, S2 heard. No murmurs or gallops. Abdomen: Soft, nontender, and nondistended. Bowel sounds positive in all 4 quadrants. Genitourinary: Deferred. Extremities: No cyanosis, no clubbing, no edema. Peripheral pulses palpable. Neurologic: Cranial nerves II through XII grossly intact. The patient is awake, alert, and oriented. Skin: Normal skin turgor. No skin rashes. Results Result Diagram: 05/29/1754205/29/17 0543 Results 24 hrs Laboratory Tests Test 06/01/17 05:10 Prothrombin Time 13.3 Prothrombin Time Ratio 1.0 INR International Normalized Ratio 1.01 Activated Partial Thromboplast Time 24.0 L Medications Medications Current Medications Acetaminophen (Tylenol Tab) 650 mg Q6H PRN PO PAIN AND OR ELEVATED TEMP; Start 05/25/17 at 21:00 Nicotine (Nicoderm 21 Mg/ 24hr) 1 patch DAILY TRANSDERM ; Start 05/26/17 at 09: 00 Methylprednisolone Sodium Succinate (Solu-Medrol) 60 mg BID IV Last administered on 05/31/17 21:30; Admin Dose 60 MG; Start 05/25/17 at 21:00 Ondansetron HCl (Zofran Inj) 4 mg Q6H PRN IV NAUSEA AND/OR VOMITING; Start at 21:00 Famotidine (Pepcid) 20 mg BID PO Last administered on 05/31/17 21:30; Admin Dose 20 MG; Start 05/26/17 at 09:00 Salmeterol Xinafoate/ Fluticasone (Advair 250/50 Diskus) 1 inh BID INH Last administered on 05/31/17 21:00; Admin Dose 1 INH; Start 05/26/17 at 09:00 Atorvastatin Calcium (Lipitor) 20 mg HS PO Last administered on 05/31/17 21:30 ; Admin Dose 20 MG; Start 05/26/17 at 21:00 Promethazine HCl/ Codeine 5 ml 5 ml Q4H PRN PO COUGH Last administered on 19:47; Admin Dose 5 ML; Start 05/26/17 at 19:00 Sodium Chloride 1,000 ml @ 100 mls/hr Q10H IV Last administered on 06/01/17 04:30; Admin Dose 100 MLS/HR; Start 05/27/17 at 10:00 Ceftriaxone Sodium (Rocephin) 50 ml @ 100 mls/hr Q24H IVPB Last administered on 05/31/17 11:01; Admin Dose 100 MLS/HR; Start 05/28/17 at 11:00 Azithromycin (Zithromax) 500 mg DAILY PO Last administered on 05/31/17 08:36; Admin Dose 500 MG; Start 05/28/17 at 11:00; Stop 06/02/17 at 10:59 Eye Lubricant (Artificial Tears Oph) 2 drop BID PRN BOTH EYES DRY EYES Last administered on 05/31/17 09:48; Admin Dose 2 DROP; Start 05/30/17 at 16:00 MARY GIORDANO NP Jun 01, 2017 07:17
[2017-06-01] MEDS ORDERED: morphine 2 MG INJ IV ONE (08:48)
[2017-06-01] MEDS: FAMOTIDINE 20 MG TAB PO SCH ×2 (08:53→23:40)
[2017-06-01] MEDS: AZITHROMYCIN 250 MG TAB PO SCH (08:54)
[2017-06-01] MEDS: METHYLPREDNISOLONE 125 MG INJ IV SCH ×2 (08:54→23:40)
[2017-06-01] MEDS: NICOTINE (21 MG/24 HR) PATCH TRANSDERM SCH ×2 (08:54→09:00)
[2017-06-01] MEDS: SALMETEROL/FLUTICASONE 250/50 INHA INH SCH ×2 (08:55→23:40)
--- NOTE | 2017-06-01 10:21 | CONS ---
Date/Time of Note Date/Time of Note DATE: 06/01/17 TIME: 10:18 Assessment/Plan Assessment/Plan Chief Complaint/Hosp Course assessment/impression - chronic cough of unclear etiology: possible etiologies include infectious ( bacterial, fungal, mycobacterial), vasculitis, reactive and neoplastic. 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 - pending results: cocci serology, respiratory fungal culture, 1,9-vczs-K-glucan , urine histoplasma antigen, urine legionella antigen, cryptococcal antigen, nasopharyngeal swab (influenza A/B/H1N1, bordetella pertussis, RSV, respiratory viruses), mycobacerium tuberculosis NAAT to Pt's sputum sample from 05/29/2017 ( Ian a [employer] 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, his daughter and RN Problems: Consultation Date/Type/Reason Admit Date/Time May 25, 2017 at 19:30 Initial Consult Date 05/29/17 Type of Consultation: ID Referring Provider: JACKIE RUDOLPH 24 HR Interval Summary Constitutional: no complaints Detailed Summary Eyes: no complaints ENT: no complaints Respiratory: cough, pain, pleuritic pain, sputum, No shortness of breath Cardiovascular: no complaints Gastrointestinal: no complaints Genitourinary: no complaints Musculoskeletal: no complaints Skin: no complaints Neurologic: no complaints Exam/Review of Systems Vital Signs Vitals Vital Signs Date Time Temp Pulse Resp B/P Pulse Ox O2 Delivery O2 Flow Rate FiO2 06/01/17 09:15 62 18 132/71 97 Room Air 06/01/17 07:32 97.7 06/01/17 05:52 21 05/29/17 20:00 2.0 Intake and Output 05/31/17 05/31/1717 15:00 23:00 07:00 Intake Total 2600 ml 1675 ml Output Total 550 ml Balance 2600 ml 1125 ml Exam Constitutional: alert, oriented, well developed Psych: nl mood/affect, no complaints Head: atraumatic, normocephalic Eyes: nl conjunctiva, nl lids ENMT: nl external ears & nose, nl nasal mucosa & septum Neck: supple Respiratory: wheezing Cardiovascular: nl pulses, regular rate and rhythm Musculoskeletal: nl extremities to inspection Extremities: No edema Results Result Diagram: 05/29/1743 05/29/17542 Results 24 hrs Laboratory Tests Test 06/01/17 05:10 Prothrombin Time 13.3 Prothrombin Time Ratio 1.0 INR International Normalized Ratio 1.01 Activated Partial Thromboplast Time 24.0 L Medications Medications Current Medications Acetaminophen (Tylenol Tab) 650 mg Q6H PRN PO PAIN AND OR ELEVATED TEMP; Start 05/25/17 at 21:00 Nicotine (Nicoderm 21 Mg/ 24hr) 1 patch DAILY TRANSDERM ; Start 05/26/17 at 09: 00 Methylprednisolone Sodium Succinate (Solu-Medrol) 60 mg BID IV Last administered on 06/01/17 08:54; Admin Dose 60 MG; Start 05/25/17 at 21:00 Ondansetron HCl (Zofran Inj) 4 mg Q6H PRN IV NAUSEA AND/OR VOMITING; Start at 21:00 Famotidine (Pepcid) 20 mg BID PO Last administered on 06/01/17 08:53; Admin Dose 20 MG; Start 05/26/17 at 09:00 Salmeterol Xinafoate/ Fluticasone (Advair 250/50 Diskus) 1 inh BID INH Last administered on 06/01/17 08:55; Admin Dose 1 INH; Start 05/26/17 at 09:00 Atorvastatin Calcium (Lipitor) 20 mg HS PO Last administered on 05/31/17 21:30 ; Admin Dose 20 MG; Start 05/26/17 at 21:00 Promethazine HCl/ Codeine 5 ml 5 ml Q4H PRN PO COUGH Last administered on 19:47; Admin Dose 5 ML; Start 05/26/17 at 19:00 Sodium Chloride 1,000 ml @ 100 mls/hr Q10H IV Last administered on 06/01/17 04:30; Admin Dose 100 MLS/HR; Start 05/27/17 at 10:00 Ceftriaxone Sodium (Rocephin) 50 ml @ 100 mls/hr Q24H IVPB Last administered on 05/31/17 11:01; Admin Dose 100 MLS/HR; Start 05/28/17 at 11:00 Azithromycin (Zithromax) 500 mg DAILY PO Last administered on 06/01/17 08:54; Admin Dose 500 MG; Start 05/28/17 at 11:00; Stop 06/02/17 at 10:59 Eye Lubricant (Artificial Tears Oph) 2 drop BID PRN BOTH EYES DRY EYES Last administered on 05/31/17 09:48; Admin Dose 2 DROP; Start 05/30/17 at 16:00 Morphine Sulfate (morphine) 2 mg Q4H PRN IV Pain; Start 06/01/17 at 09:30 LAVERNE WOOTEN M.D. Jun 01, 2017 10:21
--- NOTE | 2017-06-01 11:11 | CONS ---
Date/Time of Note Date/Time of Note DATE: 06/01/17 TIME: 11:10 Consult Date/Type/Reason Admit Date/Time May 25, 2017 at 19:30 Initial Consult Date 05/28/17 Type of Consultation: Pulmonary Ordering Provider: JACKIE RUDOLPH Subjective Patient comfortable this morning no new events. Objective Vital Signs Date Time Temp Pulse Resp B/P Pulse Ox O2 Delivery O2 Flow Rate FiO2 06/01/17 09:15 62 18 132/71 97 Room Air 06/01/17 07:32 97.7 06/01/17 05:52 21 05/29/17 20:00 2.0 Intake and Output 05/31/17 05/31/17 06/01/17 15:00 23:00 07:00 Intake Total 2600 ml 1675 ml Output Total 550 ml Balance 2600 ml 1125 ml Exam GENERAL: Well-nourished well-developed gentleman comfortable at rest no acute distress VITAL SIGNS: per chart NECK: Supple. No JVD or lymphadenopathy. CARDIAC EXAM: S1, S2. No added sounds or murmurs. CHEST: clear bilaterally, No added sounds, rales or wheezes ABDOMEN: Soft, nontender. No guarding or rebound. EXTREMITIES: No cyanosis, clubbing or edema. NEUROLOGIC: Generalized weakness. No focal deficits. Results/Medications Result Diagram: 05/29/17 0543 05/29/17 0543 Results 24 hrs Laboratory Tests Test 06/01/17 05:10 Prothrombin Time 13.3 Prothrombin Time Ratio 1.0 INR International Normalized Ratio 1.01 Activated Partial Thromboplast Time 24.0 L Medications Current Medications Acetaminophen (Tylenol Tab) 650 mg Q6H PRN PO PAIN AND OR ELEVATED TEMP; Start 05/25/17 at 21:00 Nicotine (Nicoderm 21 Mg/ 24hr) 1 patch DAILY TRANSDERM ; Start 05/26/17 at 09: 00 Methylprednisolone Sodium Succinate (Solu-Medrol) 60 mg BID IV Last administered on 06/01/17 08:54; Admin Dose 60 MG; Start 05/25/17 at 21:00 Ondansetron HCl (Zofran Inj) 4 mg Q6H PRN IV NAUSEA AND/OR VOMITING; Start at 21:00 Famotidine (Pepcid) 20 mg BID PO Last administered on 06/01/17 08:53; Admin Dose 20 MG; Start 05/26/17 at 09:00 Salmeterol Xinafoate/ Fluticasone (Advair 250/50 Diskus) 1 inh BID INH Last administered on 06/01/17 08:55; Admin Dose 1 INH; Start 05/26/17 at 09:00 Atorvastatin Calcium (Lipitor) 20 mg HS PO Last administered on 05/31/17 21:30 ; Admin Dose 20 MG; Start 05/26/17 at 21:00 Promethazine HCl/ Codeine 5 ml 5 ml Q4H PRN PO COUGH Last administered on 19:47; Admin Dose 5 ML; Start 05/26/17 at 19:00 Sodium Chloride 1,000 ml @ 100 mls/hr Q10H IV Last administered on 06/01/17 04:30; Admin Dose 100 MLS/HR; Start 05/27/17 at 10:00 Ceftriaxone Sodium (Rocephin) 50 ml @ 100 mls/hr Q24H IVPB Last administered on 05/31/17 11:01; Admin Dose 100 MLS/HR; Start 05/28/17 at 11:00 Azithromycin (Zithromax) 500 mg DAILY PO Last administered on 06/01/17 08:54; Admin Dose 500 MG; Start 05/28/17 at 11:00; Stop 06/02/17 at 10:59 Eye Lubricant (Artificial Tears Oph) 2 drop BID PRN BOTH EYES DRY EYES Last administered on 05/31/17 09:48; Admin Dose 2 DROP; Start 05/30/17 at 16:00 Morphine Sulfate (morphine) 2 mg Q4H PRN IV Pain; Start 06/01/17 at 09:30 Assessment/Plan Chief Complaint/Hosp Course Assessment 1. Chronic cough for quite some time. Family states it is been over one year. He has had abnormal CT scan performed in the past and was being referred to pulmonary as an outpatient for further evaluation. Denies any history of TB no sick contacts. Patient does have a tobacco history. Differential diagnosis of lymphadenopathy includes malignancy, sarcoidosis, lymphoma and other inflammatory conditions. Plan 1. Sputum rule out TB, AFB negative 3. Consider DC respiratory isolation. 2. Scheduled for mediastinoscopy today, discussed with infectious diseases labs will be requested. Problems: AMY BELLA MD, [facility] Jun 01, 2017 11:11
[2017-06-01 11:23] LABS: CREATINE KINASE < 20 IU/L (23-200)
[2017-06-01 11:46] LABS: CK-MB 0.27 ng/ml (0.0-2.4); TROPONIN-I < 0.012 ng/ml (0.00-0.12)
[2017-06-01] MEDS: CEFTRIAXONE 1 GM/50 ML (PMX) 50 ML IVPB SCH (12:08)
[2017-06-01] MEDS ORDERED: DIPHENHYDRAMINE 50 MG INJ IV PRN (21:00)
[2017-06-01] MEDS ORDERED: FENTAnyl 50 MCG/ML VIAL IV PRN (21:00)
[2017-06-01] MEDS ORDERED: MEPERIDINE 25 MG INJ IV PRN (21:00)
[2017-06-01] MEDS ORDERED: ONDANSETRON 4 MG INJ IV PRN (21:00)
[2017-06-01] MEDS ORDERED: morphine (1 MG/ML) 10ML SYRINGE IV PRN (21:00)
--- NOTE | 2017-06-01 21:08 | OPR ---
Date/Time of Note Date/Time of Note DATE: 06/01/17 TIME: 21:04 Operative Report Procedure Date: Jun 01, 2017 Preoperative Diagnosis Mediastinal mass Postoperative Diagnosis Same Operation Performed Mediastinoscopy with biopsy Surgeon: MELISSA JJ MD Anesthesia: general Estimated Blood Loss: minimal Specimens Mediastinal lymph nodes Complications: None Pt Condition Post Procedure: stable Disposition: PACU Operative\Procedure Findings Patient was taken the operating room after induction of general anesthesia prepped and draped in usual sterile fashion timeout was called I started I made a 2 cm incision 1 fingerbreadth superior to the sternal notch in a horizontal fashion incision was taken down to subcutaneous tissue which was then opened using electrocautery to the midline raphae was opened using electrocautery and the pretracheal space was entered mediastinal scope was then advanced a large peritracheal lymph node was observed multiple biopsies were taken I spoke with the pathologist who told me that 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
[2017-06-01 22:09] LABS: HISTOPLASMA GALACTOMANNAN AG U <0.5 ng/mL
[2017-06-01] MEDS: ATORVASTATIN 20 MG TAB PO SCH (23:40)
[2017-06-02] MEDS: morphine 2 MG INJ IV PRN ×5 (01:36→20:33)
[2017-06-02 02:54] VITALS: BP 107/68; RESP 16
[2017-06-02] MEDS: SOD CHLORIDE 0.45% 1,000 ML IV SCH ×2 (06:00→15:50)
[2017-06-02 06:16] LABS: BASOPHILS % 0.1 % (0.0-2.0); HEMATOCRIT 43.5 % (42.0-52.0); HEMOGLOBIN 14.3 g/dl (14.0-18.0); LYMPHOCYTES # 1.7 10^3/ul (0.8-2.9); LYMPHOCYTES % 12.5 % (15.0-51.0); MEAN CORPUSCULAR HEMOGLOBIN 28.8 pg (29.0-33.0); MEAN CORPUSCULAR HGB CONC 32.9 g/dl (32.0-37.0); MEAN CORPUSCULAR VOLUME 87.5 fl (82.0-101.0); MEAN PLATELET VOLUME 9.5 fl (7.4-10.4); MONOCYTE # 1.1 10^3/ul (0.3-0.9); MONOCYTES % 8.2 % (0.0-11.0); NEUTROPHIL # 10.4 10^3/ul (1.6-7.5); NEUTROPHILS % 77.8 % (39.0-77.0); PLATELET COUNT 260 10^3/UL (140-415); RED BLOOD COUNT 4.97 10^6/ul (4.70-6.10); RED CELL DISTRIBUTION WIDTH 14.6 % (11.5-14.5); WHITE BLOOD COUNT 13.3 10^3/ul (4.8-10.8)
[2017-06-02 06:35] LABS: CALCIUM 8.5 mg/dl (8.4-10.2); CREATININE 0.87 mg/dl (0.61-1.24); POTASSIUM 4.3 mmol/L (3.5-5.1)
[2017-06-02 06:41] LABS: MAGNESIUM 2.2 mg/dl (1.7-2.5); PHOSPHORUS 4.6 mg/dl (2.5-4.9)
[2017-06-02 07:30] VITALS: BP 105/68; RESP 18
--- NOTE | 2017-06-02 07:37 | PN ---
Date/Time of Note Date/Time of Note DATE: 06/02/17 TIME: 07:35 Assessment/Plan VTE Prophylaxis VTE Prophylaxis Intervention: ambulation Lines/Catheters IV [facility] Type [facility] Peripheral IV Urinary Cath still in place: No Assessment/Plan Chief Complaint/Hosp Course 1. Chronic cough. Chest CT showing extensive lymphadenopathy throughout the mediastinum and buzz consistent with probable neoplasm. The patient has been ruled out for any underlying pulmonary tuberculosis. Being followed by infectious diseases, pulmonary, and thoracic surgery. Status post mediastinoscopy with lymph node biopsy on 06/01/2017. 2. Dyslipidemia. Continue statins. Fasting lipid panel satisfactory. 3. Nicotine use. Continue nicotine patch. 4. Fluids, electrolytes, and nutrition. Low-cholesterol diet. 5. DVT prophylaxis. Ambulation. 6. Gastrointestinal prophylaxis. Histamine 2 receptor blockers. 7. Plan. Continue antimicrobials as per infectious diseases. Await pathology results and further recommendations from consultants. Case discussed with Dr. Yee Problems: Subjective 24 Hr Interval Summary Free Text/Dictation Complains of pain in the incision site. Exam/Review of Systems Vital Signs Vitals Vital Signs Date Time Temp Pulse Resp B/P Pulse Ox O2 Delivery O2 Flow Rate FiO2 06/02/17 07:30 98.3 57 18 105/68 94 06/01/17 22:16 Nasal Cannula 3.0 06/01/17 05:52 21 Intake and Output 06/01/17 06/01/17 06/02/17 15:00 23:00 07:00 Intake Total 50 ml 1525 ml 1160 ml Output Total 10 ml 200 ml Balance 50 ml 1515 ml 960 ml Exam General: Adequately build 57 year-old male lying in bed in no apparent distress. HEENT: Normocephalic, atraumatic. Eyes: Anicteric sclerae, conjunctivae clear. ENT: Nasal septum midline, oral mucosa moist. Neck supple, no JVD noticed. Respiratory: Bilaterally diminished breath sounds. No use of accessory muscles of respiration. Scattered rhonchi. Cardiovascular: S1, S2 heard. No murmurs or gallops. Abdomen: Soft, nontender, and nondistended. Bowel sounds positive in all 4 quadrants. Genitourinary: Deferred. Extremities: No cyanosis, no clubbing, no edema. Peripheral pulses palpable. Neurologic: Cranial nerves II through XII grossly intact. The patient is awake, alert, and oriented. Skin: Normal skin turgor. No skin rashes. Results Result Diagram: 06/02/17 0545 06/02/17 0545 Results 24 hrs Laboratory Tests Test 06/01/17 10:05 06/02/17 05:45 Creatine Kinase < 20 L Creatine Kinase Index Creatinine Kinase MB (Mass) 0.27 Troponin I < 0.012 White Blood Count 13.3 #H Red Blood Count 4.97 Hemoglobin 14.3 Hematocrit 43.5 Mean Corpuscular Volume 87.5 Mean Corpuscular Hemoglobin 28.8 L Mean Corpuscular Hemoglobin Concent 32.9 Red Cell Distribution Width 14.6 H Platelet Count 260 Mean Platelet Volume 9.5 Neutrophils % 77.8 H Lymphocytes % 12.5 L Monocytes % 8.2 Eosinophils % 0.0 Basophils % 0.1 Nucleated Red Blood Cells % 0.0 Neutrophils # 10.4 H Lymphocytes # 1.7 Monocytes # 1.1 H Eosinophils # 0.0 Basophils # 0.0 Nucleated Red Blood Cells # 0.0 Sodium Level 139 Potassium Level 4.3 Chloride Level 98 Carbon Dioxide Level 30 Anion Gap 15 Blood Urea Nitrogen 21 H Creatinine 0.87 Glucose Level 81 Calcium Level 8.5 Phosphorus Level 4.6 Magnesium Level 2.2 Medications Medications Current Medications Acetaminophen (Tylenol Tab) 650 mg Q6H PRN PO PAIN AND OR ELEVATED TEMP; Start 05/25/17 at 21:00 Nicotine (Nicoderm 21 Mg/ 24hr) 1 patch DAILY TRANSDERM ; Start 05/26/17 at 09: 00 Methylprednisolone Sodium Succinate (Solu-Medrol) 60 mg BID IV Last administered on 06/01/17 08:54; Admin Dose 60 MG; Start 05/25/17 at 21:00 Ondansetron HCl (Zofran Inj) 4 mg Q6H PRN IV NAUSEA AND/OR VOMITING Last administered on 06/01/17 22:10; Admin Dose 4 MG; Start 05/25/17 at 21:00 Famotidine (Pepcid) 20 mg BID PO Last administered on 06/01/17 08:53; Admin Dose 20 MG; Start 05/26/17 at 09:00 Salmeterol Xinafoate/ Fluticasone (Advair 250/50 Diskus) 1 inh BID INH Last administered on 06/01/17 08:55; Admin Dose 1 INH; Start 05/26/17 at 09:00 Atorvastatin Calcium (Lipitor) 20 mg HS PO Last administered on 05/31/17 21:30 ; Admin Dose 20 MG; Start 05/26/17 at 21:00 Promethazine HCl/ Codeine 5 ml 5 ml Q4H PRN PO COUGH Last administered on 19:47; Admin Dose 5 ML; Start 05/26/17 at 19:00 Sodium Chloride 1,000 ml @ 100 mls/hr Q10H IV Last administered on 06/01/17 17:31; Admin Dose 100 MLS/HR; Start 05/27/17 at 10:00 Ceftriaxone Sodium (Rocephin) 50 ml @ 100 mls/hr Q24H IVPB Last administered on 06/01/17 12:08; Admin Dose 100 MLS/HR; Start 05/28/17 at 11:00 Azithromycin (Zithromax) 500 mg DAILY PO Last administered on 06/01/17 08:54; Admin Dose 500 MG; Start 05/28/17 at 11:00; Stop 06/02/17 at 10:59 Eye Lubricant (Artificial Tears Oph) 2 drop BID PRN BOTH EYES DRY EYES Last administered on 05/31/17 09:48; Admin Dose 2 DROP; Start 05/30/17 at 16:00 Morphine Sulfate (morphine) 2 mg Q4H PRN IV Pain Last administered on 06:31; Admin Dose 2 MG; Start 06/01/17 at 09:30 MARY GIORDANO NP Jun 02, 2017 07:37
[2017-06-02] MEDS: METHYLPREDNISOLONE 125 MG INJ IV SCH ×2 (08:55→20:32)
[2017-06-02] MEDS: NICOTINE (21 MG/24 HR) PATCH TRANSDERM SCH (09:00)
[2017-06-02] MEDS: AZITHROMYCIN 250 MG TAB PO SCH (09:00)
[2017-06-02] MEDS: SALMETEROL/FLUTICASONE 250/50 INHA INH SCH ×2 (09:00→20:32)
[2017-06-02] MEDS: FAMOTIDINE 20 MG TAB PO SCH ×2 (09:01→20:32)
--- NOTE | 2017-06-02 09:01 | RADRPT ---
Vent Rate: 59 bpm RR Interval: 0 msec [place] Interval: 174 msec QRS Duration: 76 msec QT Interval: 422 msec QTC Interval: 417 msec P-R-T [place]: 38 - 28 - 48 degrees Sinus bradycardia Otherwise normal ECG Electronically Signed By: Lawrence Rich [id number]
--- NOTE | 2017-06-02 10:10 | CONS ---
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 - so far: negative for urine legionella antigen, galactomannan in serum, crypto antigen in serum, HIV, urine histo antigen recommendations - pending results: cocci serology,[id number], nasopharyngeal swab ( influenza A/B/H1N1, bordetella pertussis, RSV, respiratory viruses), mycobacerium tuberculosis NAAT to Pt's sputum sample from 05/29/2017 (Ian, a micro pathology laboratory aide agreed to do this on 05/31/2017), biopsy (aerobic and anaerobic cultures, fungi, AFB, mycobacerium tuberculosis NAAT) - complete ceftriaxone (05/28/2017-06/02/2017 planned) and azithromycin (05/28/2017 -06/02/2017 planned) today. 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, his daughter and [employer] Problems: Consultation Date/Type/Reason Admit Date/Time May 25, 2017 at 19:30 Initial Consult Date 05/29/17 Type of Consultation: ID Referring Provider: JACKIE RUDOLPH 24 HR Interval Summary Free Text/Dictation s/p mediastinoscopy Constitutional: no complaints Detailed Summary Eyes: no complaints ENT: other (pain from the surgical site on the throat) Respiratory: pain (anterior chest upon deep inspiration), No cough, No shortness of breath, No sputum Genitourinary: no complaints Musculoskeletal: no complaints Skin: no complaints Neurologic: no complaints Exam/Review of Systems Vital Signs Vitals Vital Signs Date Time Temp Pulse Resp B/P Pulse Ox O2 Delivery O2 Flow Rate FiO2 06/02/17 07:30 98.3 57 18 105/68 94 06/01/17 22:16 Nasal Cannula 3.0 06/01/17 05:52 21 Intake and Output 06/01/17 06/01/17 06/02/17 15:00 23:00 07:00 Intake Total 50 ml 1525 ml 1160 ml Output Total 10 ml 200 ml Balance 50 ml 1515 ml 960 ml Exam Constitutional: alert, oriented, well developed Psych: no complaints Head: atraumatic, normocephalic Eyes: nl conjunctiva, nl lids ENMT: nl external ears & nose, nl nasal mucosa & septum Neck: other (surgical site is open, clean, non-erythematous) Respiratory: crackles/rales Cardiovascular: nl pulses, regular rate and rhythm Gastrointestinal: non-tender, soft Musculoskeletal: nl extremities to inspection Extremities: No edema Neurological: MODEL MAKER PLASTER II-XII intact, nl mental status Results Result Diagram: 06/02/1745 06/02/1745 Results 24 hrs Laboratory Tests Test 06/01/17 10:05 06/02/17 05:45 Creatine Kinase < 20 L Creatine Kinase Index Creatinine Kinase MB (Mass) 0.27 Troponin I < 0.012 White Blood Count 13.3 #H Red Blood Count 4.97 Hemoglobin 14.3 Hematocrit 43.5 Mean Corpuscular Volume 87.5 Mean Corpuscular Hemoglobin 28.8 L Mean Corpuscular Hemoglobin Concent 32.9 Red Cell Distribution Width 14.6 H Platelet Count 260 Mean Platelet Volume 9.5 Neutrophils % 77.8 H Lymphocytes % 12.5 L Monocytes % 8.2 Eosinophils % 0.0 Basophils % 0.1 Nucleated Red Blood Cells % 0.0 Neutrophils # 10.4 H Lymphocytes # 1.7 Monocytes # 1.1 H Eosinophils # 0.0 Basophils # 0.0 Nucleated Red Blood Cells # 0.0 Sodium Level 139 Potassium Level 4.3 Chloride Level 98 Carbon Dioxide Level 30 Anion Gap 15 Blood Urea Nitrogen 21 H Creatinine 0.87 Glucose Level 81 Calcium Level 8.5 Phosphorus Level 4.6 Magnesium Level 2.2 Medications Medications Current Medications Acetaminophen (Tylenol Tab) 650 mg Q6H PRN PO PAIN AND OR ELEVATED TEMP; Start 05/25/17 at 21:00 Nicotine (Nicoderm 21 Mg/ 24hr) 1 patch DAILY TRANSDERM ; Start 05/26/17 at 09: 00 Methylprednisolone Sodium Succinate (Solu-Medrol) 60 mg BID IV Last administered on 06/02/17 08:55; Admin Dose 60 MG; Start 05/25/17 at 21:00 Ondansetron HCl (Zofran Inj) 4 mg Q6H PRN IV NAUSEA AND/OR VOMITING Last administered on 06/01/17 22:10; Admin Dose 4 MG; Start 05/25/17 at 21:00 Famotidine (Pepcid) 20 mg BID PO Last administered on 06/02/17 09:01; Admin Dose 20 MG; Start 05/26/17 at 09:00 Salmeterol Xinafoate/ Fluticasone (Advair 250/50 Diskus) 1 inh BID INH Last administered on 06/02/17 09:00; Admin Dose 1 INH; Start 05/26/17 at 09:00 Atorvastatin Calcium (Lipitor) 20 mg HS PO Last administered on 05/31/17 21:30 ; Admin Dose 20 MG; Start 05/26/17 at 21:00 Promethazine HCl/ Codeine 5 ml 5 ml Q4H PRN PO COUGH Last administered on 19:47; Admin Dose 5 ML; Start 05/26/17 at 19:00 Sodium Chloride 1,000 ml @ 100 mls/hr Q10H IV Last administered on 06/01/17 17:31; Admin Dose 100 MLS/HR; Start 05/27/17 at 10:00 Ceftriaxone Sodium (Rocephin) 50 ml @ 100 mls/hr Q24H IVPB Last administered on 06/01/17 12:08; Admin Dose 100 MLS/HR; Start 05/28/17 at 11:00 Azithromycin (Zithromax) 500 mg DAILY PO Last administered on 06/02/17 09:00; Admin Dose 500 MG; Start 05/28/17 at 11:00; Stop 06/02/17 at 10:59 Eye Lubricant (Artificial Tears Oph) 2 drop BID PRN BOTH EYES DRY EYES Last administered on 05/31/17 09:48; Admin Dose 2 DROP; Start 05/30/17 at 16:00 Morphine Sulfate (morphine) 2 mg Q4H PRN IV Pain Last administered on 06:31; Admin Dose 2 MG; Start 06/01/17 at 09:30 LAVERNE WOOTEN M.D. Jun 02, 2017 10:10
[2017-06-02] MEDS: CEFTRIAXONE 1 GM/50 ML (PMX) 50 ML IVPB SCH (10:54)
--- NOTE | 2017-06-02 11:31 | CONS ---
Date/Time of Note Date/Time of Note DATE: 06/02/17 TIME: 11:29 Consult Date/Type/Reason Admit Date/Time May 25, 2017 at 19:30 Initial Consult Date 05/28/17 Type of Consultation: Pulmonary ICU Ordering Provider: JACKIE RUDOLPH Subjective Patient underwent mediastinoscopy without complication Objective Vital Signs Date Time Temp Pulse Resp B/P Pulse Ox O2 Delivery O2 Flow Rate FiO2 06/02/17 08:00 Nasal Cannula 2.0 06/02/17 07:30 98.3 57 18 105/68 94 06/01/17 05:52 21 Intake and Output 06/01/17 06/01/17 06/02/17 15:00 23:00 07:00 Intake Total 50 ml 1525 ml 1160 ml Output Total 10 ml 200 ml Balance 50 ml 1515 ml 960 ml Exam GENERAL: Well-nourished well-developed gentleman comfortable at rest no acute distress VITAL SIGNS: per chart NECK: Supple. No JVD or lymphadenopathy. CARDIAC EXAM: S1, S2. No added sounds or murmurs. CHEST: clear bilaterally, No added sounds, rales or wheezes ABDOMEN: Soft, nontender. No guarding or rebound. EXTREMITIES: No cyanosis, clubbing or edema. NEUROLOGIC: Generalized weakness. No focal deficits. Results/Medications Result Diagram: 06/02/17 0545 06/02/17 0545 Results 24 hrs Laboratory Tests Test 06/02/17 05:45 White Blood Count 13.3 #H Red Blood Count 4.97 Hemoglobin 14.3 Hematocrit 43.5 Mean Corpuscular Volume 87.5 Mean Corpuscular Hemoglobin 28.8 L Mean Corpuscular Hemoglobin Concent 32.9 Red Cell Distribution Width 14.6 H Platelet Count 260 Mean Platelet Volume 9.5 Neutrophils % 77.8 H Lymphocytes % 12.5 L Monocytes % 8.2 Eosinophils % 0.0 Basophils % 0.1 Nucleated Red Blood Cells % 0.0 Neutrophils # 10.4 H Lymphocytes # 1.7 Monocytes # 1.1 H Eosinophils # 0.0 Basophils # 0.0 Nucleated Red Blood Cells # 0.0 Sodium Level 139 Potassium Level 4.3 Chloride Level 98 Carbon Dioxide Level 30 Anion Gap 15 Blood Urea Nitrogen 21 H Creatinine 0.87 Glucose Level 81 Calcium Level 8.5 Phosphorus Level 4.6 Magnesium Level 2.2 Medications Current Medications Acetaminophen (Tylenol Tab) 650 mg Q6H PRN PO PAIN AND OR ELEVATED TEMP; Start 05/25/17 at 21:00 Nicotine (Nicoderm 21 Mg/ 24hr) 1 patch DAILY TRANSDERM ; Start 05/26/17 at 09: 00 Methylprednisolone Sodium Succinate (Solu-Medrol) 60 mg BID IV Last administered on 06/02/17 08:55; Admin Dose 60 MG; Start 05/25/17 at 21:00 Ondansetron HCl (Zofran Inj) 4 mg Q6H PRN IV NAUSEA AND/OR VOMITING Last administered on 06/01/17 22:10; Admin Dose 4 MG; Start 05/25/17 at 21:00 Famotidine (Pepcid) 20 mg BID PO Last administered on 06/02/17 09:01; Admin Dose 20 MG; Start 05/26/17 at 09:00 Salmeterol Xinafoate/ Fluticasone (Advair 250/50 Diskus) 1 inh BID INH Last administered on 06/02/17 09:00; Admin Dose 1 INH; Start 05/26/17 at 09:00 Atorvastatin Calcium (Lipitor) 20 mg HS PO Last administered on 05/31/17 21:30 ; Admin Dose 20 MG; Start 05/26/17 at 21:00 Promethazine HCl/ Codeine 5 ml 5 ml Q4H PRN PO COUGH Last administered on 19:47; Admin Dose 5 ML; Start 05/26/17 at 19:00 Sodium Chloride 1,000 ml @ 100 mls/hr Q10H IV Last administered on 06/01/17 17:31; Admin Dose 100 MLS/HR; Start 05/27/17 at 10:00 Ceftriaxone Sodium (Rocephin) 50 ml @ 100 mls/hr Q24H IVPB Last administered on 06/02/17 10:54; Admin Dose 100 MLS/HR; Start 05/28/17 at 11:00; Stop at 23:59 Eye Lubricant (Artificial Tears Oph) 2 drop BID PRN BOTH EYES DRY EYES Last administered on 05/31/17 09:48; Admin Dose 2 DROP; Start 05/30/17 at 16:00 Morphine Sulfate (morphine) 2 mg Q4H PRN IV Pain Last administered on 7/26/ 17at 10:54; Admin Dose 2 MG; Start 06/01/17 at 09:30 Assessment/Plan Chief Complaint/Hosp Course Assessment 1. Enlarged mediastinal lymph nodes of unclear etiology. Status post mediastinoscopy pathology pending. Plan 1. Continue ID recommendations of extensive workup has been requested. 2. Continue incentive spirometry encourage out of bed and ambulation Problems: AMY BELLA MD, [facility] Jun 02, 2017 11:31
--- NOTE | 2017-06-02 11:58 | PN ---
Date/Time of Note Date/Time of Note DATE: 06/02/17 TIME: 11:57 Assessment/Plan Lines/Catheters IV C[facility]ter Type (from [facility] Peripheral IV Cody in Place (from Nrs): No Assessment/Plan Chief Complaint/Hosp Course Mediastinal adenopathy Status post mediastinoscopy and biopsy Awaiting biopsy results Discussed with the patient Problems: Subjective 24 Hr Interval Summary Constitutional: improved Pain Control: mild Exam/Review of Systems Vital Signs Vitals Vital Signs Date Time Temp Pulse Resp B/P Pulse Ox O2 Delivery O2 Flow Rate FiO2 06/02/17 08:00 Nasal Cannula 2.0 06/02/17 07:30 98.3 57 18 105/68 94 06/01/17 05:52 21 Intake and Output 06/01/17 06/01/17 06/02/17 15:00 23:00 07:00 Intake Total 50 ml 1525 ml 1160 ml Output Total 10 ml 200 ml Balance 50 ml 1515 ml 960 ml Exam Eyes: EOMI, nl conjunctiva, nl lids, nl sclera ENMT: mucosa pink and moist, nl external ears & nose, nl lips & teeth, nl nasal mucosa & septum Neck: non-tender, supple Respiratory: clear to auscultation, normal air movement Cardiovascular: nl pulses, regular rate and rhythm Results Result Diagram: 06/02/17 0545 06/02/17 0545 MELISSA JJ MD Jun 02, 2017 11:58
[2017-06-02 14:36] VITALS: BP 111/70; RESP 18
[2017-06-02] MEDS ORDERED: LIDOCAINE 2% (SDV) 5 ML INJ ONE (18:02)
[2017-06-02] MEDS ORDERED: ONDANSETRON 4 MG INJ ONE (18:02)
[2017-06-02] MEDS ORDERED: ROCURONIUM 50 MG INJ ONE (18:02)
[2017-06-02] MEDS ORDERED: CEFAZOLIN 1 GM INJ ONE ×2 (18:02)
[2017-06-02] MEDS ORDERED: MIDAZOLAM 1 MG/ML 2 ML INJ ONE (18:02)
[2017-06-02] MEDS ORDERED: SUCCINYLCHOLINE CHLORIDE 100 MG/5 ML SYG IV ONE (18:02)
[2017-06-02] MEDS ORDERED: ETOMIDATE 20 MG INJ ONE (18:02)
[2017-06-02 19:36] VITALS: BP 105/67; RESP 20
[2017-06-02] MEDS: ATORVASTATIN 20 MG TAB PO SCH (20:32)
[2017-06-03] MEDS: SOD CHLORIDE 0.45% 1,000 ML IV SCH ×4 (02:00→17:22)
[2017-06-03 02:36] VITALS: BP 106/70; RESP 20
[2017-06-03] MEDS: morphine 2 MG INJ IV PRN ×3 (04:22→17:32)
[2017-06-03 07:50] VITALS: BP 112/71; RESP 20
[2017-06-03] MEDS: METHYLPREDNISOLONE 125 MG INJ IV SCH ×2 (08:59→21:56)
[2017-06-03] MEDS: NICOTINE (21 MG/24 HR) PATCH TRANSDERM SCH (09:00)
[2017-06-03] MEDS: FAMOTIDINE 20 MG TAB PO SCH ×2 (09:01→21:56)
--- NOTE | 2017-06-03 10:26 | PN ---
Date/Time of Note Date/Time of Note DATE: 06/03/17 TIME: 10:26 Assessment/Plan VTE Prophylaxis VTE Prophylaxis Intervention: ambulation Lines/Catheters IV [facility] Type (from [facility]): Peripheral IV Urinary Cath still in place: No Assessment/Plan Chief Complaint/Hosp Course 1. Chronic cough. Chest CT showing extensive lymphadenopathy throughout the mediastinum and buzz consistent with probable neoplasm. The patient has been ruled out for any underlying pulmonary tuberculosis. Being followed by infectious diseases, pulmonary, and thoracic surgery. Status post mediastinoscopy with lymph node biopsy on 06/01/2017. 2. Dyslipidemia. Continue statins. Fasting lipid panel satisfactory. 3. Nicotine use. Continue nicotine patch. 4. Fluids, electrolytes, and nutrition. Low-cholesterol diet. 5. DVT prophylaxis. Ambulation. 6. Gastrointestinal prophylaxis. Histamine 2 receptor blockers. 7. Plan. Continue antimicrobials as per infectious diseases. Await pathology results and further recommendations from consultants. Case discussed with Dr. Yee Problems: Subjective 24 Hr Interval Summary Free Text/Dictation Complains of sore throat. Exam/Review of Systems Vital Signs Vitals Vital Signs Date Time Temp Pulse Resp B/P Pulse Ox O2 Delivery O2 Flow Rate FiO2 06/03/17 07:50 97.4 87 20 112/71 93 06/02/17 08:00 Nasal Cannula 2.0 06/01/17 05:52 21 Intake and Output 06/02/17 06/02/17 06/03/17 15:00 23:00 07:00 Intake Total 750 ml 1190 ml 1090 ml Output Total 300 ml Balance 750 ml 1190 ml 790 ml Exam General: Adequately build 57 year-old male lying in bed in no apparent distress. HEENT: Normocephalic, atraumatic. Eyes: Anicteric sclerae, conjunctivae clear. ENT: Nasal septum midline, oral mucosa moist. Neck supple, no JVD noticed. Respiratory: Bilaterally diminished breath sounds. No use of accessory muscles of respiration. Scattered rhonchi. Cardiovascular: S1, S2 heard. No murmurs or gallops. Abdomen: Soft, nontender, and nondistended. Bowel sounds positive in all 4 quadrants. Genitourinary: Deferred. Extremities: No cyanosis, no clubbing, no edema. Peripheral pulses palpable. Neurologic: Cranial nerves II through XII grossly intact. The patient is awake, alert, and oriented. Skin: Normal skin turgor. No skin rashes. Results Result Diagram: 06/02/1745 06/02/1745 Results 24 hrs Laboratory Tests Test 06/02/17 11:29 Lab Scanned Report REFERENCE LAB Medications Medications Current Medications Acetaminophen (Tylenol Tab) 650 mg Q6H PRN PO PAIN AND OR ELEVATED TEMP; Start 05/25/17 at 21:00 Nicotine (Nicoderm 21 Mg/ 24hr) 1 patch DAILY TRANSDERM ; Start 05/26/17 at 09: 00 Methylprednisolone Sodium Succinate (Solu-Medrol) 60 mg BID IV Last administered on 06/03/17 08:59; Admin Dose 60 MG; Start 05/25/17 at 21:00 Ondansetron HCl (Zofran Inj) 4 mg Q6H PRN IV NAUSEA AND/OR VOMITING Last administered on 06/01/17 22:10; Admin Dose 4 MG; Start 05/25/17 at 21:00 Famotidine (Pepcid) 20 mg BID PO Last administered on 06/03/17 09:01; Admin Dose 20 MG; Start 05/26/17 at 09:00 Salmeterol Xinafoate/ Fluticasone (Advair 250/50 Diskus) 1 inh BID INH Last administered on 06/02/17 20:32; Admin Dose 1 INH; Start 05/26/17 at 09:00 Atorvastatin Calcium (Lipitor) 20 mg HS PO Last administered on 06/02/17 20:32 ; Admin Dose 20 MG; Start 05/26/17 at 21:00 Promethazine HCl/ Codeine 5 ml 5 ml Q4H PRN PO COUGH Last administered on 19:47; Admin Dose 5 ML; Start 05/26/17 at 19:00 Sodium Chloride (1/2 NS) 1,000 ml @ 100 mls/hr Q10H IV Last administered on 03:18; Admin Dose 100 MLS/HR; Start 05/27/17 at 10:00 Eye Lubricant (Artificial Tears Oph) 2 drop BID PRN BOTH EYES DRY EYES Last administered on 05/31/17 09:48; Admin Dose 2 DROP; Start 05/30/17 at 16:00 Morphine Sulfate (morphine) 2 mg Q4H PRN IV Pain Last administered on 7/27/ 17at 04:22; Admin Dose 2 MG; Start 06/01/17 at 09:30 MARY GIORDANO NP Jun 03, 2017 10:26
[2017-06-03] MEDS: SALMETEROL/FLUTICASONE 250/50 INHA INH SCH ×2 (12:25→21:56)
[2017-06-03 14:17] VITALS: BP 113/68; RESP 18
[2017-06-03 19:24] VITALS: BP 113/74; RESP 20
--- NOTE | 2017-06-03 20:18 | PN ---
Date/Time of Note Date/Time of Note DATE: 06/03/17 TIME: 20:18 Assessment/Plan Lines/Catheters IV Catheter Type (from [facility]): Peripheral IV Cody in Place (from Nrs): No Assessment/Plan Chief Complaint/Hosp Course Mediastinal adenopathy Status post mediastinoscopy and biopsy Awaiting biopsy results Discussed with the patient Problems: Subjective 24 Hr Interval Summary Constitutional: improved Pain Control: mild Exam/Review of Systems Vital Signs Vitals Vital Signs Date Time Temp Pulse Resp B/P Pulse Ox O2 Delivery O2 Flow Rate FiO2 06/03/17 19:24 98.3 73 20 113/74 92 06/02/17 08:00 Nasal Cannula 2.0 06/01/17 05:52 21 Intake and Output 06/02/17 06/02/17 06/03/17 15:00 23:00 07:00 Intake Total 750 ml 1190 ml 1090 ml Output Total 300 ml Balance 750 ml 1190 ml 790 ml Exam Neck: non-tender, supple Respiratory: clear to auscultation, normal air movement Cardiovascular: nl pulses, regular rate and rhythm Gastrointestinal: nl liver, spleen, non-tender, soft Results Result Diagram: 06/02/17 0545 06/02/17 0545 MELISSA JJ MD Jun 03, 2017 20:18
--- NOTE | 2017-06-03 20:52 | CONS ---
Date/Time of Note Date/Time of Note DATE: 06/03/17 TIME: 20:43 Assessment/Plan Assessment/Plan Chief Complaint/Hosp Course assessment/impression - chronic cough of unclear etiology s/p mediastinoscopy with biopsy on 2016. 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 - mild paronychia of toenail - so far: negative for urine legionella antigen, galactomannan in serum, 1,3- [id number], crypto antigen in serum, HIV, urine histo antigen, viruses ( influenza, parainfluenza, RSV, adenovirus), mycobacerium tuberculosis NAAT to Pt 's sputum sample from 05/29/2017, cocci serology - leukocytosis, on steroid since 05/25/2017 recommendations - pending results: nasopharyngeal swab (bordetella pertussis), biopsy (aerobic and anaerobic cultures, fungi, AFB, mycobacerium tuberculosis NAAT) - Pt's RN called the lab to inquire about cytology specimen (the status says "active"), the lab is closed for this evening. Will call the path department tomorrow. - apply topical antibiotic to paronychia bid - continue to monitor Pt off systemic antibiotic management d/w Pt, his family member, RN Problems: Consultation Date/Type/Reason Admit Date/Time May 25, 2017 at 19:30 Initial Consult Date 05/29/17 Type of Consultation: ID Referring Provider: JACKIE RUDOLPH 24 HR Interval Summary Constitutional: improved Detailed Summary Eyes: no complaints ENT: sore throat Respiratory: pain (near the surgical site), No pleuritic pain, No shortness of breath Cardiovascular: no complaints Gastrointestinal: no complaints Genitourinary: no complaints Musculoskeletal: no complaints Skin: skin lesions (faint erythema of toenail) Neurologic: no complaints Endocrine: no complaints Exam/Review of Systems Vital Signs Vitals Vital Signs Date Time Temp Pulse Resp B/P Pulse Ox O2 Delivery O2 Flow Rate FiO2 06/03/17 19:24 98.3 73 20 113/74 92 06/02/17 08:00 Nasal Cannula 2.0 06/01/17 05:52 21 Intake and Output 06/02/17 06/02/17 06/03/17 15:00 23:00 07:00 Intake Total 750 ml 1190 ml 1090 ml Output Total 300 ml Balance 750 ml 1190 ml 790 ml Exam Constitutional: alert, oriented, well developed Psych: nl mood/affect, no complaints Head: atraumatic, normocephalic Eyes: nl conjunctiva, nl lids ENMT: nl external ears & nose, nl nasal mucosa & septum Neck: supple Respiratory: wheezing Cardiovascular: nl pulses, regular rate and rhythm Musculoskeletal: nl extremities to inspection Extremities: No edema Neurological: STAMP MAKER II-XII intact, nl mental status, nl speech Skin: other (faint erythema of R 2nd toenail, L 2nd toenail) Results Result Diagram: 06/02/1745 06/02/17 0545 Results 24 hrs Laboratory Tests Test 06/03/17 12:19 06/03/17 12:31 06/03/17 12:32 06/03/17 12:33 Lab Scanned Report REFERENCE LAB REFERENCE LAB REFERENCE LAB REFERENCE LAB Medications Medications Current Medications Acetaminophen (Tylenol Tab) 650 mg Q6H PRN PO PAIN AND OR ELEVATED TEMP; Start 05/25/17 at 21:00 Nicotine (Nicoderm 21 Mg/ 24hr) 1 patch DAILY TRANSDERM ; Start 05/26/17 at 09: 00 Methylprednisolone Sodium Succinate (Solu-Medrol) 60 mg BID IV Last administered on 06/03/17 08:59; Admin Dose 60 MG; Start 05/25/17 at 21:00 Ondansetron HCl (Zofran Inj) 4 mg Q6H PRN IV NAUSEA AND/OR VOMITING Last administered on 06/01/17 22:10; Admin Dose 4 MG; Start 05/25/17 at 21:00 Famotidine (Pepcid) 20 mg BID PO Last administered on 06/03/17 09:01; Admin Dose 20 MG; Start 05/26/17 at 09:00 Salmeterol Xinafoate/ Fluticasone (Advair 250/50 Diskus) 1 inh BID INH Last administered on 06/03/17 12:25; Admin Dose 1 INH; Start 05/26/17 at 09:00 Atorvastatin Calcium (Lipitor) 20 mg HS PO Last administered on 06/02/17 20:32 ; Admin Dose 20 MG; Start 05/26/17 at 21:00 Promethazine HCl/ Codeine 5 ml 5 ml Q4H PRN PO COUGH Last administered on 19:47; Admin Dose 5 ML; Start 05/26/17 at 19:00 Sodium Chloride (1/2 NS) 1,000 ml @ 100 mls/hr Q10H IV Last administered on 17:22; Admin Dose 100 MLS/HR; Start 05/27/17 at 10:00 Eye Lubricant (Artificial Tears Oph) 2 drop BID PRN BOTH EYES DRY EYES Last administered on 05/31/17 09:48; Admin Dose 2 DROP; Start 05/30/17 at 16:00 Morphine Sulfate (morphine) 2 mg Q4H PRN IV Pain Last administered on 17:32; Admin Dose 2 MG; Start 06/01/17 at 09:30 LAVERNE WOOTEN M.D. Jun 03, 2017 20:52
[2017-06-03] MEDS ORDERED: NEOMYC/POLYMYX/BACIT 0.9 GM OINT TOP SCH (21:00)
[2017-06-03] MEDS: ATORVASTATIN 20 MG TAB PO SCH (21:56)
[2017-06-03] MEDS: NEOMYC/POLYMYX/BACIT 30 GM OINT TOP SCH (23:37)
[2017-06-04 02:00] VITALS: BP 112/63; RESP 20
[2017-06-04] MEDS: SOD CHLORIDE 0.45% 1,000 ML IV SCH ×3 (04:43→18:00)
[2017-06-04 07:33] VITALS: BP 102/64; RESP 18
[2017-06-04] MEDS: SALMETEROL/FLUTICASONE 250/50 INHA INH SCH ×2 (08:56→20:57)
[2017-06-04] MEDS: FAMOTIDINE 20 MG TAB PO SCH ×2 (08:57→20:55)
[2017-06-04] MEDS: METHYLPREDNISOLONE 125 MG INJ IV SCH ×2 (08:57→20:52)
--- NOTE | 2017-06-04 08:57 | RADRPT ---
PROCEDURE: Chest Radiograph. CLINICAL INDICATION: Pneumonia. TECHNIQUE: Single frontal chest radiograph. COMPARISON: Chest radiograph 05/31/2017. CT chest 05/26/2017. FINDINGS: Heart size is within normal limits. There is enlargement of the right hilum likely related to a hil ar adenopathy. The lungs are clear. No infiltrate or effusion is seen. The bones are intact. IMPRESSION: 1. No evidence of acute cardiopulmonary disease. 2. Right hilar adenopathy. RPTAT: KK .Ty Garcia MD, MD Date Time Electronically viewed and signed by .Ty Garcia MD, on 06/04/2017 08:56 .B/
[2017-06-04] MEDS: NEOMYC/POLYMYX/BACIT 30 GM OINT TOP SCH ×2 (08:58→20:57)
[2017-06-04] MEDS: ARTIFICIAL TEARS 15 ML OPH BOTH EYES PRN (08:59)
[2017-06-04] MEDS: NICOTINE (21 MG/24 HR) PATCH TRANSDERM SCH (09:00)
[2017-06-04] MEDS: morphine 2 MG INJ IV PRN ×2 (09:28→20:51)
--- NOTE | 2017-06-04 10:11 | PN ---
Date/Time of Note Date/Time of Note DATE: 06/04/17 TIME: 10:08 Assessment/Plan VTE Prophylaxis VTE Prophylaxis Intervention: ambulation Lines/Catheters IV [facility]ter Type (from [facility]): Peripheral IV Urinary Cath still in place: No Assessment/Plan Chief Complaint/Hosp Course 1. Chronic cough. Chest CT showing extensive lymphadenopathy throughout the mediastinum and buzz consistent with probable neoplasm. The patient has been ruled out for any underlying pulmonary tuberculosis. Being followed by infectious diseases, pulmonary, and thoracic surgery. Status post mediastinoscopy with lymph node biopsy on 06/01/2017. 2. Dyslipidemia. Continue statins. Fasting lipid panel satisfactory. 3. Nicotine use. Continue nicotine patch. 4. Fluids, electrolytes, and nutrition. Low-cholesterol diet. 5. DVT prophylaxis. Ambulation. 6. Gastrointestinal prophylaxis. Histamine 2 receptor blockers. 7. Plan. Patient's antimicrobials have been discontinued. Await pathology results and further recommendations from consultants. Case discussed with Dr. Yee As discussed with on 06/04/2017. As per Dr. Alvarez's conversation with the pathology department, the patient's sample is going to be sent to [facility] for expert review. Problems: Subjective 24 Hr Interval Summary Free Text/Dictation Patient remains afebrile. Anxious about the results of biopsy. Constipated. Exam/Review of Systems Vital Signs Vitals Vital Signs Date Time Temp Pulse Resp B/P Pulse Ox O2 Delivery O2 Flow Rate FiO2 06/04/17 07:33 97.9 61 18 102/64 93 06/02/17 08:00 Nasal Cannula 2.0 06/01/17 05:52 21 Intake and Output 06/03/17 06/03/17 06/04/17 15:00 23:00 07:00 Intake Total 920 ml 2120 ml 1000 ml Balance 920 ml 2120 ml 1000 ml Exam General: Adequately build 57 year-old male lying in bed in no apparent distress. HEENT: Normocephalic, atraumatic. Eyes: Anicteric sclerae, conjunctivae clear. ENT: Nasal septum midline, oral mucosa moist. Neck supple, no JVD noticed. Respiratory: Bilaterally diminished breath sounds. No use of accessory muscles of respiration. Scattered rhonchi. Cardiovascular: S1, S2 heard. No murmurs or gallops. Abdomen: Soft, nontender, and nondistended. Bowel sounds positive in all 4 quadrants. Genitourinary: Deferred. Extremities: No cyanosis, no clubbing, no edema. Peripheral pulses palpable. Neurologic: Cranial nerves II through XII grossly intact. The patient is awake, alert, and oriented. Skin: Normal skin turgor. No skin rashes. Results Result Diagram: 06/02/17 0545 06/02/17 0545 Results 24 hrs Laboratory Tests Test 06/03/17 12:19 06/03/17 12:31 06/03/17 12:32 06/03/17 12:33 Lab Scanned Report REFERENCE LAB REFERENCE LAB REFERENCE LAB REFERENCE LAB Medications Medications Current Medications Acetaminophen (Tylenol Tab) 650 mg Q6H PRN PO PAIN AND OR ELEVATED TEMP; Start 05/25/17 at 21:00 Nicotine (Nicoderm 21 Mg/ 24hr) 1 patch DAILY TRANSDERM ; Start 05/26/17 at 09: 00 Methylprednisolone Sodium Succinate (Solu-Medrol) 60 mg BID IV Last administered on 06/04/17 08:57; Admin Dose 60 MG; Start 05/25/17 at 21:00 Ondansetron HCl (Zofran Inj) 4 mg Q6H PRN IV NAUSEA AND/OR VOMITING Last administered on 06/01/17 22:10; Admin Dose 4 MG; Start 05/25/17 at 21:00 Famotidine (Pepcid) 20 mg BID PO Last administered on 06/04/17 08:57; Admin Dose 20 MG; Start 05/26/17 at 09:00 Salmeterol Xinafoate/ Fluticasone (Advair 250/50 Diskus) 1 inh BID INH Last administered on 06/04/17 08:56; Admin Dose 1 INH; Start 05/26/17 at 09:00 Atorvastatin Calcium (Lipitor) 20 mg HS PO Last administered on 06/03/17 21:56 ; Admin Dose 20 MG; Start 05/26/17 at 21:00 Promethazine HCl/ Codeine 5 ml 5 ml Q4H PRN PO COUGH Last administered on 19:47; Admin Dose 5 ML; Start 05/26/17 at 19:00 Sodium Chloride (1/2 NS) 1,000 ml @ 100 mls/hr Q10H IV Last administered on 04:43; Admin Dose 100 MLS/HR; Start 05/27/17 at 10:00 Eye Lubricant (Artificial Tears Oph) 2 drop BID PRN BOTH EYES DRY EYES Last administered on 06/04/17 08:59; Admin Dose 2 DROP; Start 05/30/17 at 16:00 Morphine Sulfate (morphine) 2 mg Q4H PRN IV Pain Last administered on 09:28; Admin Dose 2 MG; Start 06/01/17 at 09:30 Neomycin/ Polymyxin/ Bacitracin (Neosporin Topical Oint) 1 applic BID TOP Last administered on 06/04/17 08:58; Admin Dose 1 APPLIC; Start 06/03/17 at 22:05; Stop 06/10/17 at 22:04 MARY GIORDANO NP Jun 04, 2017 10:11
--- NOTE | 2017-06-04 10:37 | CONS ---
Date/Time of Note Date/Time of Note DATE: 06/04/17 TIME: 10:27 Assessment/Plan Assessment/Plan Chief Complaint/Hosp Course assessment/impression - chronic cough of unclear etiology s/p mediastinoscopy with biopsy on 2016. Took empiric ceftriaxone and azithromycin 05/28/2017-06/02/2017 - extensive mediastinal and hilar lymphadenopathy with clear parenchyma. 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 Lane at path department. Further immunohistochemistry staining is pending. The specimen will be also sent to [facility] for another expert' s opinion. I informed Dr. Lane that Pt has had extensive occupational exposure. 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 - will order histo compliment fixation (urine histo antigen was negative) because fibrosing mediastinitis is a differential diagnosis continue to monitor Pt off systemic antibiotic - continue topical antibiotic to paronychia bid management d/w Pt, his family member, Dr. Lane and [employer] Problems: Consultation Date/Type/Reason Admit Date/Time May 25, 2017 at 19:30 Initial Consult Date 05/29/17 Type of Consultation: ID Referring Provider: JACKIE RUDOLPH 24 HR Interval Summary Constitutional: improved, no complaints Detailed Summary Eyes: no complaints ENT: other (pain from the surgical site), sore throat Respiratory: other (anterior chest pain, after the surgery) Cardiovascular: no complaints Gastrointestinal: constipation Genitourinary: no complaints Musculoskeletal: no complaints Skin: no complaints Neurologic: no complaints Exam/Review of Systems Vital Signs Vitals Vital Signs Date Time Temp Pulse Resp B/P Pulse Ox O2 Delivery O2 Flow Rate FiO2 06/04/17 07:33 97.9 61 18 102/64 93 06/02/17 08:00 Nasal Cannula 2.0 06/01/17 05:52 21 Intake and Output 06/03/17 06/03/17 06/04/17 15:00 23:00 07:00 Intake Total 920 ml 2120 ml 1000 ml Balance 920 ml 2120 ml 1000 ml Exam Constitutional: alert, oriented, well developed Psych: nl mood/affect, no complaints Head: normocephalic Eyes: nl conjunctiva, nl lids ENMT: nl external ears & nose, nl nasal mucosa & septum Neck: supple Respiratory: crackles/rales Cardiovascular: nl pulses, regular rate and rhythm Musculoskeletal: nl extremities to inspection Extremities: No edema Skin: other (faint erythema of R 2nd and L 3rd toenail) Results Result Diagram: 06/02/1745 06/02/1745 Results 24 hrs Laboratory Tests Test 06/03/17 12:19 06/03/17 12:31 06/03/17 12:32 06/03/17 12:33 Lab Scanned Report REFERENCE LAB REFERENCE LAB REFERENCE LAB REFERENCE LAB Medications Medications Current Medications Acetaminophen (Tylenol Tab) 650 mg Q6H PRN PO PAIN AND OR ELEVATED TEMP; Start 05/25/17 at 21:00 Nicotine (Nicoderm 21 Mg/ 24hr) 1 patch DAILY TRANSDERM ; Start 05/26/17 at 09: 00 Methylprednisolone Sodium Succinate (Solu-Medrol) 60 mg BID IV Last administered on 06/04/17 08:57; Admin Dose 60 MG; Start 05/25/17 at 21:00 Ondansetron HCl (Zofran Inj) 4 mg Q6H PRN IV NAUSEA AND/OR VOMITING Last administered on 06/01/17 22:10; Admin Dose 4 MG; Start 05/25/17 at 21:00 Famotidine (Pepcid) 20 mg BID PO Last administered on 06/04/17 08:57; Admin Dose 20 MG; Start 05/26/17 at 09:00 Salmeterol Xinafoate/ Fluticasone (Advair 250/50 Diskus) 1 inh BID INH Last administered on 06/04/17 08:56; Admin Dose 1 INH; Start 05/26/17 at 09:00 Atorvastatin Calcium (Lipitor) 20 mg HS PO Last administered on 06/03/17 21:56 ; Admin Dose 20 MG; Start 05/26/17 at 21:00 Promethazine HCl/ Codeine 5 ml 5 ml Q4H PRN PO COUGH Last administered on 19:47; Admin Dose 5 ML; Start 05/26/17 at 19:00 Sodium Chloride (1/2 NS) 1,000 ml @ 100 mls/hr Q10H IV Last administered on 04:43; Admin Dose 100 MLS/HR; Start 05/27/17 at 10:00 Eye Lubricant (Artificial Tears Oph) 2 drop BID PRN BOTH EYES DRY EYES Last administered on 06/04/17 08:59; Admin Dose 2 DROP; Start 05/30/17 at 16:00 Morphine Sulfate (morphine) 2 mg Q4H PRN IV Pain Last administered on 09:28; Admin Dose 2 MG; Start 06/01/17 at 09:30 Neomycin/ Polymyxin/ Bacitracin (Neosporin Topical Oint) 1 applic BID TOP Last administered on 06/04/17 08:58; Admin Dose 1 APPLIC; Start 06/03/17 at 22:05; Stop 06/10/17 at 22:04 LAVERNE WOOTEN M.D. Jun 04, 2017 10:37
[2017-06-04] MEDS ORDERED: BISACODYL (EC) 5 MG TAB PO PRN (11:00)
[2017-06-04] MEDS: POLYETHYLENE GLYCOL 17 GM PACKET PO SCH ×2 (11:22→20:55)
--- NOTE | 2017-06-04 13:38 | PN ---
Date/Time of Note Date/Time of Note DATE: 06/04/17 TIME: 13:38 Assessment/Plan Lines/Catheters IV [facility] Type (from [facility]): Peripheral IV [place] in Place (from Nrs): No Assessment/Plan Chief Complaint/Hosp Course Mediastinal adenopathy Status post mediastinoscopy and biopsy Awaiting biopsy results Discussed with the patient Problems: Subjective 24 Hr Interval Summary Constitutional: improved Pain Control: mild Exam/Review of Systems Vital Signs Vitals Vital Signs Date Time Temp Pulse Resp B/P Pulse Ox O2 Delivery O2 Flow Rate FiO2 06/04/17 07:33 97.9 61 18 102/64 93 06/02/17 08:00 Nasal Cannula 2.0 06/01/17 05:52 21 Intake and Output 06/03/17 06/03/17 06/04/17 15:00 23:00 07:00 Intake Total 920 ml 2120 ml 1000 ml Balance 920 ml 2120 ml 1000 ml Exam ENMT: mucosa pink and moist, nl external ears & nose, nl lips & teeth, nl nasal mucosa & septum Neck: non-tender, supple Respiratory: clear to auscultation, normal air movement Cardiovascular: nl pulses, regular rate and rhythm Results Result Diagram: 06/02/17 0545 06/02/17 0545 MELISSA JJ MD Jun 04, 2017 13:38
[2017-06-04 14:22] VITALS: BP 105/62; RESP 18
--- NOTE | 2017-06-04 14:51 | CONS ---
Date/Time of Note Date/Time of Note DATE: 06/04/17 TIME: 14:49 Consult Date/Type/Reason Admit Date/Time May 25, 2017 at 19:30 Initial Consult Date 05/28/17 Type of Consultation: Pulmonary Ordering Provider: JACKIE RUDOLPH Subjective Patient remains stable no significant shortness of breath. Objective Vital Signs Date Time Temp Pulse Resp B/P Pulse Ox O2 Delivery O2 Flow Rate FiO2 06/04/17 14:22 98.2 67 18 105/62 94 06/02/17 08:00 Nasal Cannula 2.0 06/01/17 05:52 21 Intake and Output 06/03/17 06/03/17 06/04/17 15:00 23:00 07:00 Intake Total 920 ml 2120 ml 1000 ml Balance 920 ml 2120 ml 1000 ml Exam GENERAL: Well-nourished well-developed gentleman comfortable at rest no acute distress. VITAL SIGNS: per chart NECK: Supple. No JVD or lymphadenopathy. CARDIAC EXAM: S1, S2. No added sounds or murmurs. CHEST: clear bilaterally, No added sounds, rales or wheezes ABDOMEN: Soft, nontender. No guarding or rebound. EXTREMITIES: No cyanosis, clubbing or edema. NEUROLOGIC: Generalized weakness. No focal deficits. Results/Medications Result Diagram: 06/02/17 0545 06/02/17 0545 Results 24 hrs Initial pathology suggestive of fibrosing mediastinitis Medications Current Medications Acetaminophen (Tylenol Tab) 650 mg Q6H PRN PO PAIN AND OR ELEVATED TEMP; Start 05/25/17 at 21:00 Nicotine (Nicoderm 21 Mg/ 24hr) 1 patch DAILY TRANSDERM ; Start 05/26/17 at 09: 00 Methylprednisolone Sodium Succinate (Solu-Medrol) 60 mg BID IV Last administered on 06/04/17 08:57; Admin Dose 60 MG; Start 05/25/17 at 21:00 Ondansetron HCl (Zofran Inj) 4 mg Q6H PRN IV NAUSEA AND/OR VOMITING Last administered on 06/01/17 22:10; Admin Dose 4 MG; Start 05/25/17 at 21:00 Famotidine (Pepcid) 20 mg BID PO Last administered on 06/04/17 08:57; Admin Dose 20 MG; Start 05/26/17 at 09:00 Salmeterol Xinafoate/ Fluticasone (Advair 250/50 Diskus) 1 inh BID INH Last administered on 06/04/17 08:56; Admin Dose 1 INH; Start 05/26/17 at 09:00 Atorvastatin Calcium (Lipitor) 20 mg HS PO Last administered on 06/03/17 21:56 ; Admin Dose 20 MG; Start 05/26/17 at 21:00 Promethazine HCl/ Codeine 5 ml 5 ml Q4H PRN PO COUGH Last administered on 19:47; Admin Dose 5 ML; Start 05/26/17 at 19:00 Sodium Chloride (1/2 NS) 1,000 ml @ 100 mls/hr Q10H IV Last administered on 04:43; Admin Dose 100 MLS/HR; Start 05/27/17 at 10:00 Eye Lubricant (Artificial Tears Oph) 2 drop BID PRN BOTH EYES DRY EYES Last administered on 06/04/17 08:59; Admin Dose 2 DROP; Start 05/30/17 at 16:00 Morphine Sulfate (morphine) 2 mg Q4H PRN IV Pain Last administered on 09:28; Admin Dose 2 MG; Start 06/01/17 at 09:30 Neomycin/ Polymyxin/ Bacitracin (Neosporin Topical Oint) 1 applic BID TOP Last administered on 06/04/17 08:58; Admin Dose 1 APPLIC; Start 06/03/17 at 22:05; Stop 06/10/17 at 22:04 Polyethylene Glycol (Miralax) 17 gm BID PO Last administered on 06/04/17 11:22 ; Admin Dose 17 GM; Start 06/04/17 at 11:00 Bisacodyl (Dulcolax) 10 mg DAILY PRN PO CONSTIPATION Last administered on 11:23; Admin Dose 10 MG; Start 06/04/17 at 11:00 Assessment/Plan Chief Complaint/Hosp Course Assessment 1. Enlarged mediastinal lymph nodes of unclear etiology. Status post mediastinoscopy pathology pending. Preliminary pathology noted. Plan 1. Continue ID recommendations of extensive workup has been requested. 2. Continue incentive spirometry encourage out of bed and ambulation 3. Consider discharge follow-up with all results as an outpatient. Problems: AMY BELLA MD, [facility] Jun 04, 2017 14:51
[2017-06-04] MEDS: ATORVASTATIN 20 MG TAB PO SCH (20:55)
[2017-06-04 21:21] VITALS: BP 112/65; RESP 19
[2017-06-05] MEDS: SOD CHLORIDE 0.45% 1,000 ML IV SCH ×3 (00:39→14:00)
[2017-06-05 02:00] VITALS: BP 117/74; RESP 20
[2017-06-05 07:24] VITALS: BP 108/76; RESP 18
[2017-06-05] MEDS: NICOTINE (21 MG/24 HR) PATCH TRANSDERM SCH (09:00)
--- NOTE | 2017-06-05 09:08 | PN ---
Date/Time of Note Date/Time of Note DATE: 06/05/17 TIME: 09:06 Assessment/Plan VTE Prophylaxis VTE Prophylaxis Intervention: ambulation Lines/Catheters IV Catheter Type (from [facility] [place]): Peripheral IV Urinary Cath still in place: No Assessment/Plan Chief Complaint/Hosp Course 1. Chronic cough. Chest CT showing extensive lymphadenopathy throughout the mediastinum and buzz consistent with probable neoplasm. The patient has been ruled out for any underlying pulmonary tuberculosis. Being followed by infectious diseases, pulmonary, and thoracic surgery. Status post mediastinoscopy with lymph node biopsy on 06/01/2017. The pathology showed "it is difficult to classify this lesion. However, a sclerosing thymoma, sclerosing mediastinitis and solitary fibrous tumor are in the differential diagnosis.It is difficult to classify this lesion. However, a sclerosing thymoma, sclerosing mediastinitis and solitary fibrous tumor are in the differential diagnosis." The sample has been sent to [facility] for expert review. 2. Dyslipidemia. Continue statins. Fasting lipid panel satisfactory. 3. Nicotine use. Continue nicotine patch. 4. Fluids, electrolytes, and nutrition. Low-cholesterol diet. 5. DVT prophylaxis. Ambulation. 6. Gastrointestinal prophylaxis. Histamine 2 receptor blockers. 7. Plan. Patient's antimicrobials have been discontinued. Await pathology final results and further recommendations from consultants. Case discussed with Dr. Yee Plan of care was explained to the patient's daughter over the phone. Problems: Subjective 24 Hr Interval Summary Free Text/Dictation Pain well controlled. Constipation has resolved. Exam/Review of Systems Vital Signs Vitals Vital Signs Date Time Temp Pulse Resp B/P Pulse Ox O2 Delivery O2 Flow Rate FiO2 06/05/17 07:24 98.0 60 18 108/76 94 06/02/17 08:00 Nasal Cannula 2.0 Intake and Output 06/04/17 06/04/17 06/05/17 15:00 23:00 07:00 Intake Total 920 ml 1220 ml 950 ml Balance 920 ml 1220 ml 950 ml Exam General: Adequately build 57 year-old male lying in bed in no apparent distress. HEENT: Normocephalic, atraumatic. Eyes: Anicteric sclerae, conjunctivae clear. ENT: Nasal septum midline, oral mucosa moist. Neck supple, no JVD noticed. Respiratory: Bilaterally diminished breath sounds. No use of accessory muscles of respiration. Scattered rhonchi. Cardiovascular: S1, S2 heard. No murmurs or gallops. Abdomen: Soft, nontender, and nondistended. Bowel sounds positive in all 4 quadrants. Genitourinary: Deferred. Extremities: No cyanosis, no clubbing, no edema. Peripheral pulses palpable. Neurologic: Cranial nerves II through XII grossly intact. The patient is awake, alert, and oriented. Skin: Normal skin turgor. No skin rashes. Results Result Diagram: 06/02/1754406/02/17544 Medications Medications Current Medications Acetaminophen (Tylenol Tab) 650 mg Q6H PRN PO PAIN AND OR ELEVATED TEMP; Start 05/25/17 at 21:00 Nicotine (Nicoderm 21 Mg/ 24hr) 1 patch DAILY TRANSDERM ; Start 05/26/17 at 09: 00 Methylprednisolone Sodium Succinate (Solu-Medrol) 60 mg BID IV Last administered on 06/04/17 20:52; Admin Dose 60 MG; Start 05/25/17 at 21:00 Ondansetron HCl (Zofran Inj) 4 mg Q6H PRN IV NAUSEA AND/OR VOMITING Last administered on 06/01/17 22:10; Admin Dose 4 MG; Start 05/25/17 at 21:00 Famotidine (Pepcid) 20 mg BID PO Last administered on 06/04/17 20:55; Admin Dose 20 MG; Start 05/26/17 at 09:00 Salmeterol Xinafoate/ Fluticasone (Advair 250/50 Diskus) 1 inh BID INH Last administered on 06/04/17 20:57; Admin Dose 1 INH; Start 05/26/17 at 09:00 Atorvastatin Calcium (Lipitor) 20 mg HS PO Last administered on 06/04/17 20:55 ; Admin Dose 20 MG; Start 05/26/17 at 21:00 Promethazine HCl/ Codeine 5 ml 5 ml Q4H PRN PO COUGH Last administered on 19:47; Admin Dose 5 ML; Start 05/26/17 at 19:00 Sodium Chloride (1/2 NS) 1,000 ml @ 100 mls/hr Q10H IV Last administered on 00:39; Admin Dose 100 MLS/HR; Start 05/27/17 at 10:00 Eye Lubricant (Artificial Tears Oph) 2 drop BID PRN BOTH EYES DRY EYES Last administered on 06/04/17 08:59; Admin Dose 2 DROP; Start 05/30/17 at 16:00 Morphine Sulfate (morphine) 2 mg Q4H PRN IV Pain Last administered on 20:51; Admin Dose 2 MG; Start 06/01/17 at 09:30 Neomycin/ Polymyxin/ Bacitracin (Neosporin Topical Oint) 1 applic BID TOP Last administered on 06/04/17 20:57; Admin Dose 1 APPLIC; Start 06/03/17 at 22:05; Stop 06/10/17 at 22:04 Polyethylene Glycol (Miralax) 17 gm BID PO Last administered on 06/04/17 20:55 ; Admin Dose 17 GM; Start 06/04/17 at 11:00 Bisacodyl (Dulcolax) 10 mg DAILY PRN PO CONSTIPATION Last administered on 11:23; Admin Dose 10 MG; Start 06/04/17 at 11:00 MARY GIORDANO NP Jun 05, 2017 09:08
[2017-06-05] MEDS: SALMETEROL/FLUTICASONE 250/50 INHA INH SCH ×2 (09:42→21:03)
[2017-06-05] MEDS: NEOMYC/POLYMYX/BACIT 30 GM OINT TOP SCH (09:42)
[2017-06-05] MEDS: POLYETHYLENE GLYCOL 17 GM PACKET PO SCH (09:43)
[2017-06-05] MEDS: METHYLPREDNISOLONE 125 MG INJ IV SCH ×2 (09:44→21:04)
[2017-06-05] MEDS: FAMOTIDINE 20 MG TAB PO SCH ×2 (09:44→21:04)
[2017-06-05] MEDS: morphine 2 MG INJ IV PRN (09:46)
[2017-06-05] MEDS ORDERED: INDOMETHACIN 50 MG PO ONE (12:00)
--- NOTE | 2017-06-05 12:02 | CONS ---
Date/Time of Note Date/Time of Note DATE: 06/05/17 TIME: 11:49 Assessment/Plan Assessment/Plan Additional Assessment/Plan Atypical chest Atypical pain radiating to the back Combination of exertional and pleuritic pain Status post biopsy of mediastinal lymph node IMPRESSION: 1. Extensive lymphadenopathy throughout the mediastinum and buzz consistent with probable neoplasm. Various inflammatory and infectious processes may also give this appearance. Clinical correlation is advised. 2. Clear lungs. 3. Mild degenerative changes of the spine. RPTAT: QQ I will discontinue morphine and start him off on nonsteroidal anti-inflammatory medications with PPI and to be taken only on a full stomach. I believe this is more pleuritic type pain emanating someplace in his chest workup is pending. I suggested cardiology consult also, will follow have discussed plan of care with patient and they are in agreement. Consultation Date/Type/Reason Admit Date/Time May 25, 2017 at 19:30 Date of Consultation: Jun 04, 2017 Reason for Consultation Pain management Hx of Present Illness 67-year-old gentleman who began to have chest pain beginning approximately 2 years, states the pain became worse over this last 2 year period of time which resulting in his visit to the emergency room. Please review results of CT scan since hospitalization. Describes his pain as increasing in severity when he does minimal activity slowly decreasing in severity when he rests. Also states that his pain is worse in the recumbent position decreases when he is in the upright position. Denies nausea vomiting dizziness type locally disorientation , states he becomes mildly short of breath with exertion. Describes his pain as a throbbing type discomfort which peaks and trough but lately has not gone away completely. Once again there is radiations into the back primarily in his mid thoracic spine. Currently describes the pain is severe 8/10 moderately alleviated with current medications including morphine to approximately 3/10. There is no family history of coronary artery disease patient is a half a pack per day smoker. This gentleman has not been taking opioids as an outpatient while hospitalized he has not asked for frequent early renewals of his opioid not excellent for different pain control medications either. There is no past medical history of drug or alcohol abuse. The pain does interfere with his physical function mood and overall function does not interfere with his family relationships or sleeping pattern he has no side effects associated with current pain control medications. There is no past medical history of documented coronary artery disease or pulmonary disease. Constitutional: improved, no complaints Eyes: no complaints, No discharge, No other, No pain, No redness, No visual change ENT: other (pain from the surgical site), sore throat, No bleeding, No congestion, No discharge, No dysphagia, No no complaints, No pain Respiratory: other (anterior chest pain, after the surgery) Cardiovascular: no complaints, No chest pain, No edema, No lightheadedness, No orthopenea, No other, No palpitations, No paroxysmal nocturnal dyspnea Gastrointestinal: constipation, No blood, No decreased appetite, No diarrhea, No flatus, No nausea, No no complaints, No other, No pain, No passing stool, No vomiting Genitourinary: no complaints, No bleeding, No discharge, No dysuria, No flank pain, No hematuria, No other Musculoskeletal: no complaints, No back pain, No bone/joint pain, No neck pain, No other, No restricted range of motion, No swelling Skin: no complaints Neurologic: no complaints, No confusion, No dizziness, No focal-weakness, No headache, No other, No seizure, No syncope Endocrine: no complaints Lymphatic: no complaints Psychological: nl mood/affect, no complaints Past Medical History Medical History: no pertinent history, hypertension, other (hyperlipidemia) Family History Significant Family History: vascular disease Social History Alcohol Use: none Smoking Status: Former smoker Drug Use: none Exam/Review of Systems Vital Signs Vitals Vital Signs Date Time Temp Pulse Resp B/P Pulse Ox O2 Delivery O2 Flow Rate FiO2 06/05/17 07:24 98.0 60 18 108/76 94 06/02/17 08:00 Nasal Cannula 2.0 Intake and Output 06/04/17 06/04/17 06/05/17 15:00 23:00 07:00 Intake Total 920 ml 1220 ml 950 ml Balance 920 ml 1220 ml 950 ml Exam Head: No atraumatic, No hematomas, No lacerations, No normocephalic, No other Eyes: No EOMI, No PERRL, No fundi, disc, No icteric, No nl conjunctiva, No nl lids, No nl sclera, No other Neck: No bruits, No jvd, No masses, No non-tender, No nuchal rigidity, No other , No supple, No thyromegaly Respiratory: No clear to auscultation, No congested cough, No crackles/rales, No diminished breath sounds, No intercostal retraction, No labored breathing, No normal air movement, No other, No respirations, No tactile fremitus, No wheezing Gastrointestinal: No ascites, No bowel sounds, No distended, No firm, No hepatomegaly, No mass, No nl liver, spleen, No non-tender, No other, No rebound or guarding, No soft, No splenomegaly, No surgical scars, No tender Extremities: No calf tenderness, No clubbing, No cyanosis, No edema, No normal pulses, No other, No palpable cord, No pitting pedal edema, No tenderness Neurological: No ROLL PLUGGER II-XII intact, No DTR's symmetric, No confused, No focal weakness, No lethargic, No nl mental status, No nl speech, No nl strength, No numbness, No other, No reflexes, No unresponsive Results Result Diagram: 06/02/1754406/02/17544 Results 24 hrs Laboratory Tests Test 06/05/17 09:10 Lab Scanned Report REFERENCE LAB Medications Medications Current Medications Acetaminophen (Tylenol Tab) 650 mg Q6H PRN PO PAIN AND OR ELEVATED TEMP; Start 05/25/17 at 21:00 Nicotine (Nicoderm 21 Mg/ 24hr) 1 patch DAILY TRANSDERM ; Start 05/26/17 at 09: 00 Methylprednisolone Sodium Succinate (Solu-Medrol) 60 mg BID IV Last administered on 06/05/17 09:44; Admin Dose 60 MG; Start 05/25/17 at 21:00 Ondansetron HCl (Zofran Inj) 4 mg Q6H PRN IV NAUSEA AND/OR VOMITING Last administered on 06/01/17 22:10; Admin Dose 4 MG; Start 05/25/17 at 21:00 Famotidine (Pepcid) 20 mg BID PO Last administered on 06/05/17 09:44; Admin Dose 20 MG; Start 05/26/17 at 09:00 Salmeterol Xinafoate/ Fluticasone (Advair 250/50 Diskus) 1 inh BID INH Last administered on 06/05/17 09:42; Admin Dose 1 INH; Start 05/26/17 at 09:00 Atorvastatin Calcium (Lipitor) 20 mg HS PO Last administered on 06/04/17 20:55 ; Admin Dose 20 MG; Start 05/26/17 at 21:00 Promethazine HCl/ Codeine 5 ml 5 ml Q4H PRN PO COUGH Last administered on 19:47; Admin Dose 5 ML; Start 05/26/17 at 19:00 Sodium Chloride (1/2 NS) 1,000 ml @ 100 mls/hr Q10H IV Last administered on 00:39; Admin Dose 100 MLS/HR; Start 05/27/17 at 10:00 Eye Lubricant (Artificial Tears Oph) 2 drop BID PRN BOTH EYES DRY EYES Last administered on 06/04/17 08:59; Admin Dose 2 DROP; Start 05/30/17 at 16:00 Morphine Sulfate (morphine) 2 mg Q4H PRN IV Pain Last administered on 09:46; Admin Dose 2 MG; Start 06/01/17 at 09:30 Neomycin/ Polymyxin/ Bacitracin (Neosporin Topical Oint) 1 applic BID TOP Last administered on 06/05/17 09:42; Admin Dose 1 APPLIC; Start 06/03/17 at 22:05; Stop 06/10/17 at 22:04 Polyethylene Glycol (Miralax) 17 gm BID PO Last administered on 06/05/17 09:43 ; Admin Dose 17 GM; Start 06/04/17 at 11:00 Bisacodyl (Dulcolax) 10 mg DAILY PRN PO CONSTIPATION Last administered on 11:23; Admin Dose 10 MG; Start 06/04/17 at 11:00 SPARKLE AMOS Jun 05, 2017 11:59
[2017-06-05 13:18] VITALS: BP 116/75; RESP 20
[2017-06-05] MEDS: INDOMETHACIN 25 MG PO SCH ×2 (17:42→21:05)
--- NOTE | 2017-06-05 18:20 | CONS ---
Date/Time of Note Date/Time of Note DATE: 06/05/17 TIME: 18:15 Assessment/Plan Assessment/Plan Chief Complaint/Hosp Course assessment/impression - chronic cough of unclear etiology s/p mediastinoscopy with biopsy on 2016. Took empiric ceftriaxone and azithromycin 05/28/2017-06/02/2017 - extensive mediastinal and hilar lymphadenopathy with clear parenchyma. 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 Lane - hoarseness - Pt has had extensive occupational exposure. 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 - mild paronychia of toenail, resolved - so far: negative for urine legionella antigen, galactomannan in serum, 1,3- [id number], crypto antigen in serum, HIV, urine histo antigen, viruses ( influenza, parainfluenza, RSV, adenovirus), mycobacerium tuberculosis NAAT to Pt 's sputum sample from 05/29/2017, cocci serology, Bx (aerobic and anaerobic cultures, fungi, AFB smear) - leukocytosis, on steroid since 05/25/2017 recommendations - pending results: histoplasma CF (urine histoplasma antigen was negative previously), nasopharyngeal swab (bordetella pertussis), biopsy (mycobacterium tuberculosis NAAT), review of Bx by a pathologist at [facility] - continue to monitor Pt off systemic antibiotic - d/c topical antibiotic management d/w Pt Problems: Consultation Date/Type/Reason Admit Date/Time May 25, 2017 at 19:30 Initial Consult Date 05/29/17 Type of Consultation: ID Referring Provider: JACKIE RUDOLPH 24 HR Interval Summary Constitutional: no complaints Detailed Summary Eyes: no complaints ENT: no complaints Respiratory: pain (anterior chest), pleuritic pain, No cough, No shortness of breath, No sputum, No wheezing Cardiovascular: chest pain (?cardiac vs pleuritic) Gastrointestinal: no complaints Genitourinary: no complaints Musculoskeletal: no complaints Skin: other (darkness of the nailbed of b/l 3rd toes, no pain no pus) Neurologic: no complaints Exam/Review of Systems Vital Signs Vitals Vital Signs Date Time Temp Pulse Resp B/P Pulse Ox O2 Delivery O2 Flow Rate FiO2 06/05/17 13:18 97.9 71 20 116/75 95 06/02/17 08:00 Nasal Cannula 2.0 Intake and Output 06/04/17 06/04/17 06/05/17 15:00 23:00 07:00 Intake Total 920 ml 1220 ml 950 ml Balance 920 ml 1220 ml 950 ml Exam Constitutional: alert, oriented, well developed Psych: nl mood/affect, no complaints Head: atraumatic, normocephalic Eyes: nl conjunctiva, nl lids ENMT: nl external ears & nose, nl nasal mucosa & septum Neck: supple Respiratory: crackles/rales Cardiovascular: nl pulses, regular rate and rhythm Gastrointestinal: non-tender, soft Musculoskeletal: nl extremities to inspection Extremities: normal pulses, No edema 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 No erythema/purulence/ swelling/tenderness) Results Result Diagram: 06/02/17 0545 06/02/17 0545 Results 24 hrs Laboratory Tests Test 06/05/17 09:10 Lab Scanned Report REFERENCE LAB Medications Medications Current Medications Nicotine (Nicoderm 21 Mg/ 24hr) 1 patch DAILY TRANSDERM ; Start 05/26/17 at 09: 00 Methylprednisolone Sodium Succinate (Solu-Medrol) 60 mg BID IV Last administered on 06/05/17 09:44; Admin Dose 60 MG; Start 05/25/17 at 21:00 Ondansetron HCl (Zofran Inj) 4 mg Q6H PRN IV NAUSEA AND/OR VOMITING Last administered on 06/01/17 22:10; Admin Dose 4 MG; Start 05/25/17 at 21:00 Famotidine (Pepcid) 20 mg BID PO Last administered on 06/05/17 09:44; Admin Dose 20 MG; Start 05/26/17 at 09:00 Salmeterol Xinafoate/ Fluticasone (Advair 250/50 Diskus) 1 inh BID INH Last administered on 06/05/17 09:42; Admin Dose 1 INH; Start 05/26/17 at 09:00 Atorvastatin Calcium (Lipitor) 20 mg HS PO Last administered on 06/04/17 20:55 ; Admin Dose 20 MG; Start 05/26/17 at 21:00 Promethazine HCl/ Codeine 5 ml 5 ml Q4H PRN PO COUGH Last administered on 19:47; Admin Dose 5 ML; Start 05/26/17 at 19:00 Sodium Chloride (1/2 NS) 1,000 ml @ 100 mls/hr Q10H IV Last administered on 12:18; Admin Dose 100 MLS/HR; Start 05/27/17 at 10:00 Eye Lubricant (Artificial Tears Oph) 2 drop BID PRN BOTH EYES DRY EYES Last administered on 06/04/17 08:59; Admin Dose 2 DROP; Start 05/30/17 at 16:00 Neomycin/ Polymyxin/ Bacitracin (Neosporin Topical Oint) 1 applic BID TOP Last administered on 06/05/17 09:42; Admin Dose 1 APPLIC; Start 06/03/17 at 22:05; Stop 06/10/17 at 22:04 Bisacodyl (Dulcolax) 10 mg DAILY PRN PO CONSTIPATION Last administered on 11:23; Admin Dose 10 MG; Start 06/04/17 at 11:00 Indomethacin (Indocin) 25 mg QID PO Last administered on 06/05/17 17:42; Admin Dose 25 MG; Start 06/05/17 at 17:00 LAVERNE WOOTEN M.D. Jun 05, 2017 18:20
--- NOTE | 2017-06-05 19:45 | PN ---
Date/Time of Note Date/Time of Note DATE: 06/05/17 TIME: 19:43 Assessment/Plan Lines/Catheters IV Catheter Type (from [facility]): Peripheral IV [place] in Place (from [facility]): No Assessment/Plan Chief Complaint/Hosp Course Mediastinal adenopathy Pathology preliminary report A, B-Anterior mediastinal mass, mediastinoscopic biopsies: -- Spindle cell lesion with sclerosis, and patchy lymphocytic cell infiltrate ( please see comment). -- AFB and GMS stains with appropriate controls (B1) show no identifiable pathogenic organisms. C-Mediastinal fat, biopsy: -- Adipose tissue with no significant histopathological features. Status post mediastinoscopy and biopsy Awaiting full biopsy results Discussed with the patient Problems: Subjective 24 Hr Interval Summary Constitutional: improved Pain Control: mild Exam/Review of Systems Vital Signs Vitals Vital Signs Date Time Temp Pulse Resp B/P Pulse Ox O2 Delivery O2 Flow Rate FiO2 06/05/17 13:18 97.9 71 20 116/75 95 06/02/17 08:00 Nasal Cannula 2.0 Intake and Output 06/04/17 06/04/17 06/05/17 15:00 23:00 07:00 Intake Total 920 ml 1220 ml 950 ml Balance 920 ml 1220 ml 950 ml Exam ENMT: mucosa pink and moist, nl external ears & nose, nl lips & teeth, nl nasal mucosa & septum Neck: non-tender, supple Respiratory: clear to auscultation, normal air movement Cardiovascular: nl pulses, regular rate and rhythm Gastrointestinal: nl liver, spleen, non-tender, soft Results Result Diagram: 06/02/17 0545 06/02/17 0545 MELISSA JJ MD Jun 05, 2017 19:45
[2017-06-05 20:09] VITALS: BP 118/83; RESP 20
[2017-06-05] MEDS: ATORVASTATIN 20 MG TAB PO SCH (21:04)
--- NOTE | 2017-06-05 22:37 | RADRPT ---
Echocardiogram Report Patient Name: NEISHA MANSFIELD Gender: Male Date: 1960 Study Date: 05-Jun-2017 Shearing Machine Feeder: [facility] Location: 623 Ref. Physician: MARY GIORDANO Quality: Adequate Procedures: Transthoracic echocardiogram with complete 2D, M-Mode, and doppler examination. Indications: Chest Pain. 2D/M Mode Doppler Measurement Value Normal Ranges Measurement Value Normal Ranges LVIDd 2D 4.4 3.5 - 5.6 cm AV Peak Jair 1.3 m/sec LVIDs 2D 3.2 2.1 - 4.1 cm AV Peak PG 7.0 mmHg FS 2D 27.1 % LVOT Peak Jair 1.1 m/sec LVPWd 2D 1.1 0.6 - 1.1 cm LVOT Peak PG 5.0 mmHg IVSd 2D 1.2 0.6 - 1.1 cm MV E Peak Jair 0.6 m/sec IVS/LVPW 2D 1.0 MV A Peak Jair 0.7 m/sec AoR Diam 2D 3.0 2.0 - 3.7 cm MV E/A 1.0 LA/Ao 2D 1 0 - 1 MV Decel Time 261 msec EDV 2D 84.6 cm3 MV E/A 1.0 ESV 2D 32.8 cm3 TR Peak Jair 2.2 m/sec LA Dimen 2D 3.6 2.3 - 4.0 cm TR Peak PG 19.0 mmHg RVSP 23.0 mmHg Findings Left Ventricle: Normal left ventricular systolic function. Normal left ventricular cavity size. Mild concentric left ventricular hypertrophy. Ejection fraction is visually estimated at 60 %. Right Ventricle: Normal right ventricular size. Normal right ventricular systolic function. Left Atrium: The left atrium is normal in size. Right Atrium: The right atrium is normal in size. Mitral Valve: Mild mitral leaflet calcification. Mild mitral annular calcification. Trace mitral regurgitation. Aortic Valve: Normal appearance of the aortic valve. No significant aortic stenosis or insufficiency. Tricuspid Valve: Normal appearance of the tricuspid valve. Estimated peak PA systolic pressure 23 mmHg. There is trace tricuspid regurgitation. Pulmonic Valve: Pulmonic valve not well visualized. There is trace pulmonic regurgitation. Pericardium: Normal pericardium with no significant pericardial effusion. Aorta: Normal aortic root. IVC: Normal size and normal respiratory collapse consistent with normal right atrial pressure. Conclusions Normal left ventricular systolic function. Normal left ventricular cavity size. Mild concentric left ventricular hypertrophy. Ejection fraction is visually estimated at 60 %. Normal right ventricular size. Normal right ventricular systolic function. The left atrium is normal in size. The right atrium is normal in size. No significant valvular stenosis or regurgitation seen. Normal pericardium with no significant pericardial effusion. Electronically Signed By: Devyn Jacobs 05-Jun-2017 22:36:34 -0700 Patient Name: NEISHA MANSFIELD Study Date: 05-Jun-2017 [id number]
[2017-06-06] MEDS: SOD CHLORIDE 0.45% 1,000 ML IV SCH ×5 (01:35→23:12)
[2017-06-06 02:23] VITALS: BP 111/70; RESP 18
[2017-06-06 07:47] VITALS: BP 115/73; RESP 20
[2017-06-06] MEDS: NICOTINE (21 MG/24 HR) PATCH TRANSDERM SCH (08:54)
[2017-06-06] MEDS: INDOMETHACIN 25 MG PO SCH ×4 (08:55→21:58)
[2017-06-06] MEDS: FAMOTIDINE 20 MG TAB PO SCH ×2 (08:55→21:58)
[2017-06-06] MEDS: SALMETEROL/FLUTICASONE 250/50 INHA INH SCH ×2 (08:56→21:59)
[2017-06-06] MEDS: METHYLPREDNISOLONE 125 MG INJ IV SCH ×2 (08:56→21:58)
--- NOTE | 2017-06-06 11:03 | CONS ---
Date/Time of Note Date/Time of Note DATE: 06/06/17 TIME: 11:02 Consultation Date/Type/Reason Admit Date/Time May 25, 2017 at 19:30 Initial Consult Date 05/29/17 Type of Consultation: Pulmonary Referring Provider: JACKIE RUDOLPH 24 HR Interval Summary Free Text/Dictation Patient not in the room for evaluation. Exam/Review of Systems Vital Signs Vitals Vital Signs Date Time Temp Pulse Resp B/P Pulse Ox O2 Delivery O2 Flow Rate FiO2 06/06/17 07:47 97.9 70 20 115/73 98 06/05/17 20:00 Room Air 06/02/17 08:00 2.0 Intake and Output 06/05/17 06/05/17 06/06/17 15:00 23:00 07:00 Intake Total 550 ml 1360 ml 1250 ml Output Total 800 ml Balance 550 ml 560 ml 1250 ml Results Result Diagram: 06/02/17 0545 06/02/17 0545 Medications Medications Current Medications Nicotine (Nicoderm 21 Mg/ 24hr) 1 patch DAILY TRANSDERM ; Start 05/26/17 at 09: 00 Methylprednisolone Sodium Succinate (Solu-Medrol) 60 mg BID IV Last administered on 06/06/17 08:56; Admin Dose 60 MG; Start 05/25/17 at 21:00 Ondansetron HCl (Zofran Inj) 4 mg Q6H PRN IV NAUSEA AND/OR VOMITING Last administered on 06/01/17 22:10; Admin Dose 4 MG; Start 05/25/17 at 21:00 Famotidine (Pepcid) 20 mg BID PO Last administered on 06/06/17 08:55; Admin Dose 20 MG; Start 05/26/17 at 09:00 Salmeterol Xinafoate/ Fluticasone (Advair 250/50 Diskus) 1 inh BID INH Last administered on 06/06/17 08:56; Admin Dose 1 INH; Start 05/26/17 at 09:00 Atorvastatin Calcium (Lipitor) 20 mg HS PO Last administered on 06/05/17 21:04 ; Admin Dose 20 MG; Start 05/26/17 at 21:00 Promethazine HCl/ Codeine 5 ml 5 ml Q4H PRN PO COUGH Last administered on 19:47; Admin Dose 5 ML; Start 05/26/17 at 19:00 Sodium Chloride (1/2 NS) 1,000 ml @ 100 mls/hr Q10H IV Last administered on 01:35; Admin Dose 100 MLS/HR; Start 05/27/17 at 10:00 Eye Lubricant (Artificial Tears Oph) 2 drop BID PRN BOTH EYES DRY EYES Last administered on 06/04/17 08:59; Admin Dose 2 DROP; Start 05/30/17 at 16:00 Bisacodyl (Dulcolax) 10 mg DAILY PRN PO CONSTIPATION Last administered on 11:23; Admin Dose 10 MG; Start 06/04/17 at 11:00 Indomethacin (Indocin) 25 mg QID PO Last administered on 06/06/17 08:55; Admin Dose 25 MG; Start 06/05/17 at 17:00 TOÑITO LARA Jun 06, 2017 11:03
--- NOTE | 2017-06-06 11:36 | CONS ---
Date/Time of Note Date/Time of Note DATE: 06/06/17 TIME: 11:34 Assessment/Plan Assessment/Plan Chief Complaint/Hosp Course assessment/impression - chronic cough of unclear etiology s/p mediastinoscopy with biopsy on 2016. Took empiric ceftriaxone and azithromycin 05/28/2017-06/02/2017 - extensive mediastinal and hilar lymphadenopathy with clear parenchyma. 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 Lane - hoarseness - Pt has had extensive occupational exposure. 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 - mild paronychia of toenail, resolved - so far: negative for urine legionella antigen, galactomannan in serum, 1,3- [id number], crypto antigen in serum, HIV, urine histo antigen, viruses ( influenza, parainfluenza, RSV, adenovirus), mycobacerium tuberculosis NAAT to Pt 's sputum sample from 05/29/2017, cocci serology, Bx (aerobic and anaerobic cultures, fungi, AFB smear) - leukocytosis, on steroid since 05/25/2017 recommendations - pending results: histoplasma CF (urine histoplasma antigen was negative previously), nasopharyngeal swab (bordetella pertussis), biopsy (mycobacterium tuberculosis NAAT), review of Bx by a pathologist at [facility] - continue to monitor Pt off systemic antibiotic management d/w Pt Problems: Consultation Date/Type/Reason Admit Date/Time May 25, 2017 at 19:30 Initial Consult Date 05/29/17 Type of Consultation: ID Referring Provider: JACKIE RUDOLPH 24 HR Interval Summary Constitutional: improved Detailed Summary Eyes: no complaints ENT: no complaints Respiratory: pleuritic pain, sputum, No cough, No shortness of breath Cardiovascular: no complaints Gastrointestinal: no complaints Genitourinary: no complaints Musculoskeletal: no complaints Skin: no complaints Neurologic: no complaints Exam/Review of Systems Vital Signs Vitals Vital Signs Date Time Temp Pulse Resp B/P Pulse Ox O2 Delivery O2 Flow Rate FiO2 06/06/17 07:47 97.9 70 20 115/73 98 06/05/17 20:00 Room Air 06/02/17 08:00 2.0 Intake and Output 06/05/17 06/05/17 06/06/17 15:00 23:00 07:00 Intake Total 550 ml 1360 ml 1250 ml Output Total 800 ml Balance 550 ml 560 ml 1250 ml Exam Constitutional: alert, oriented, well developed Psych: nl mood/affect, no complaints Head: atraumatic, normocephalic Eyes: nl conjunctiva, nl lids ENMT: nl external ears & nose, nl nasal mucosa & septum Neck: other (well healing scar on the neck, non-erythematous), supple Respiratory: clear to auscultation, normal air movement Cardiovascular: nl pulses, regular rate and rhythm Musculoskeletal: nl extremities to inspection Extremities: No edema Neurological: BIOMEDICAL 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 II-XII intact, nl mental status, nl speech, nl strength Skin: nl turgor, No rash or lesions Results Result Diagram: 06/02/1754406/02/17544 Medications Medications Current Medications Nicotine (Nicoderm 21 Mg/ 24hr) 1 patch DAILY TRANSDERM ; Start 05/26/17 at 09: 00 Methylprednisolone Sodium Succinate (Solu-Medrol) 60 mg BID IV Last administered on 06/06/17 08:56; Admin Dose 60 MG; Start 05/25/17 at 21:00 Ondansetron HCl (Zofran Inj) 4 mg Q6H PRN IV NAUSEA AND/OR VOMITING Last administered on 06/01/17 22:10; Admin Dose 4 MG; Start 05/25/17 at 21:00 Famotidine (Pepcid) 20 mg BID PO Last administered on 06/06/17 08:55; Admin Dose 20 MG; Start 05/26/17 at 09:00 Salmeterol Xinafoate/ Fluticasone (Advair 250/50 Diskus) 1 inh BID INH Last administered on 06/06/17 08:56; Admin Dose 1 INH; Start 05/26/17 at 09:00 Atorvastatin Calcium (Lipitor) 20 mg HS PO Last administered on 06/05/17 21:04 ; Admin Dose 20 MG; Start 05/26/17 at 21:00 Promethazine HCl/ Codeine 5 ml 5 ml Q4H PRN PO COUGH Last administered on 19:47; Admin Dose 5 ML; Start 05/26/17 at 19:00 Sodium Chloride (1/2 NS) 1,000 ml @ 100 mls/hr Q10H IV Last administered on 01:35; Admin Dose 100 MLS/HR; Start 05/27/17 at 10:00 Eye Lubricant (Artificial Tears Oph) 2 drop BID PRN BOTH EYES DRY EYES Last administered on 06/04/17 08:59; Admin Dose 2 DROP; Start 05/30/17 at 16:00 Bisacodyl (Dulcolax) 10 mg DAILY PRN PO CONSTIPATION Last administered on 11:23; Admin Dose 10 MG; Start 06/04/17 at 11:00 Indomethacin (Indocin) 25 mg QID PO Last administered on 06/06/17 08:55; Admin Dose 25 MG; Start 06/05/17 at 17:00 LAVERNE WOOTEN M.D. Jun 06, 2017 11:36
[2017-06-06 14:13] VITALS: BP 108/64; RESP 20
--- NOTE | 2017-06-06 14:28 | PN ---
Date/Time of Note Date/Time of Note DATE: 06/06/17 TIME: 14:26 Assessment/Plan VTE Prophylaxis VTE Prophylaxis Intervention: ambulation Lines/Catheters IV Catheter Type (from Nrs): Peripheral IV Urinary Cath still in place: No Assessment/Plan Chief Complaint/Hosp Course Assessment and plan 1. Chronic cough. Patient with CT scan of the chest showing extensive lymphadenopathy throughout the mediastinum and buzz consistent with suspect neoplasm. Patient without for underlying tuberculosis. ID and thoracic surgeon following. Of note patient is status post mediastinoscopy with biopsy done on June 01, 2017. Pathology unclear at this time. Sample sent to [facility] for further review. We will follow-up with result. 2. Dyslipidemia. Continue on statin 3. History of nicotine use. Placed on nicotine patch Disposition plan: Off antibiotics at this time. Less reported cough. Continue with analgesics for reported chest pain. Awaiting pathology results for further recommendations Discussed plan of care with Dr. Yee Problems: Subjective 24 Hr Interval Summary Free Text/Dictation No reports of chest pain this time. Reports less cough at this time. No other specific complaints Exam/Review of Systems Vital Signs Vitals Vital Signs Date Time Temp Pulse Resp B/P Pulse Ox O2 Delivery O2 Flow Rate FiO2 06/06/17 14:13 97.0 74 20 108/64 95 06/05/17 20:00 Room Air 06/02/17 08:00 2.0 Intake and Output 06/05/17 06/05/17 06/06/17 15:00 23:00 07:00 Intake Total 550 ml 1360 ml 1250 ml Output Total 800 ml Balance 550 ml 560 ml 1250 ml Exam Constitutional: alert Head: normocephalic Neck: supple, No jvd Respiratory: clear to auscultation Cardiovascular: regular rate and rhythm Gastrointestinal: non-tender, soft Musculoskeletal: nl extremities to inspection Neurological: LABEL PINKER II-XII intact, nl mental status, nl speech Results Result Diagram: 06/02/17 0545 06/02/1745 Medications Medications Current Medications Nicotine (Nicoderm 21 Mg/ 24hr) 1 patch DAILY TRANSDERM ; Start 05/26/17 at 09: 00 Methylprednisolone Sodium Succinate (Solu-Medrol) 60 mg BID IV Last administered on 06/06/17t 08:56; Admin Dose 60 MG; Start 05/25/17 at 21:00 Ondansetron HCl (Zofran Inj) 4 mg Q6H PRN IV NAUSEA AND/OR VOMITING Last administered on 06/01/17 22:10; Admin Dose 4 MG; Start 05/25/17 at 21:00 Famotidine (Pepcid) 20 mg BID PO Last administered on 06/06/17 08:55; Admin Dose 20 MG; Start 05/26/17 at 09:00 Salmeterol Xinafoate/ Fluticasone (Advair 250/50 Diskus) 1 inh BID INH Last administered on 06/06/17 08:56; Admin Dose 1 INH; Start 05/26/17 at 09:00 Atorvastatin Calcium (Lipitor) 20 mg HS PO Last administered on 06/05/17 21:04 ; Admin Dose 20 MG; Start 05/26/17 at 21:00 Promethazine HCl/ Codeine 5 ml 5 ml Q4H PRN PO COUGH Last administered on 19:47; Admin Dose 5 ML; Start 05/26/17 at 19:00 Sodium Chloride (1/2 NS) 1,000 ml @ 100 mls/hr Q10H IV Last administered on 13:03; Admin Dose 100 MLS/HR; Start 05/27/17 at 10:00 Eye Lubricant (Artificial Tears Oph) 2 drop BID PRN BOTH EYES DRY EYES Last administered on 06/04/17 08:59; Admin Dose 2 DROP; Start 05/30/17 at 16:00 Bisacodyl (Dulcolax) 10 mg DAILY PRN PO CONSTIPATION Last administered on 11:23; Admin Dose 10 MG; Start 06/04/17 at 11:00 Indomethacin (Indocin) 25 mg QID PO Last administered on 06/06/17 13:03; Admin Dose 25 MG; Start 06/05/17 at 17:00 NERISSA PARK Jun 06, 2017 14:28
--- NOTE | 2017-06-06 14:47 | PN ---
Date/Time of Note Date/Time of Note DATE: 06/06/17 TIME: 14:46 Assessment/Plan Lines/Catheters IV Catheter Type (from [facility]): Peripheral IV Cody in Place (from [facility]): No Assessment/Plan Chief Complaint/Hosp Course Mediastinal adenopathy Pathology preliminary report A, B-Anterior mediastinal mass, mediastinoscopic biopsies: -- Spindle cell lesion with sclerosis, and patchy lymphocytic cell infiltrate ( please see comment). -- AFB and GMS stains with appropriate controls (B1) show no identifiable pathogenic organisms. C-Mediastinal fat, biopsy: -- Adipose tissue with no significant histopathological features. Status post mediastinoscopy and biopsy Awaiting full biopsy results Discussed with the patient Problems: Subjective 24 Hr Interval Summary Constitutional: improved Pain Control: mild Exam/Review of Systems Vital Signs Vitals Vital Signs Date Time Temp Pulse Resp B/P Pulse Ox O2 Delivery O2 Flow Rate FiO2 06/06/17 14:13 97.0 74 20 108/64 95 06/05/17 20:00 Room Air 06/02/17 08:00 2.0 Intake and Output 06/05/17 06/05/17 06/06/17 15:00 23:00 07:00 Intake Total 550 ml 1360 ml 1250 ml Output Total 800 ml Balance 550 ml 560 ml 1250 ml Exam ENMT: mucosa pink and moist, nl external ears & nose, nl lips & teeth, nl nasal mucosa & septum Neck: non-tender, supple Respiratory: clear to auscultation, normal air movement Cardiovascular: nl pulses, regular rate and rhythm Gastrointestinal: nl liver, spleen, non-tender, soft Results Result Diagram: 06/02/17 0545 06/02/17 0545 MELISSA JJ MD Jun 06, 2017 14:46
[2017-06-06] MEDS: AL HYDROX/MG HYDROX/SIMETH 30 ML CUP PO PRN (17:44)
[2017-06-06 20:14] VITALS: BP 121/63; RESP 18
[2017-06-06] MEDS: ATORVASTATIN 20 MG TAB PO SCH (21:58)
[2017-06-07] MEDS: ARTIFICIAL TEARS 15 ML OPH BOTH EYES PRN (02:31)
[2017-06-07 02:35] VITALS: BP 121/80; RESP 18
[2017-06-07] MEDS: SOD CHLORIDE 0.45% 1,000 ML IV SCH ×3 (06:00→22:22)
[2017-06-07 07:24] VITALS: BP 125/56; RESP 18
[2017-06-07 08:01] VITALS: BP 115/83; RESP 20
--- NOTE | 2017-06-07 08:53 | CONS ---
Date/Time of Note Date/Time of Note DATE: 06/07/17 TIME: 08:48 Assessment/Plan Assessment/Plan Chief Complaint/Hosp Course 67-year-old gentleman who began to have chest pain beginning approximately 2 years, states the pain became worse over this last 2 year period of time which resulting in his visit to the emergency room. Please review results of CT scan since hospitalization. Describes his pain as increasing in severity when he does minimal activity slowly decreasing in severity when he rests. Also states that his pain is worse in the recumbent position decreases when he is in the upright position. Denies nausea vomiting dizziness type locally disorientation , states he becomes mildly short of breath with exertion. Describes his pain as a throbbing type discomfort which peaks and trough but lately has not gone away completely. Once again there is radiations into the back primarily in his mid thoracic spine. Currently describes the pain is severe 8/10 moderately alleviated with current medications including morphine to approximately 3/10. There is no family history of coronary artery disease patient is a half a pack per day smoker. This gentleman has not been taking opioids as an outpatient while hospitalized he has not asked for frequent early renewals of his opioid not excellent for different pain control medications either. There is no past medical history of drug or alcohol abuse. The pain does interfere with his physical function mood and overall function does not interfere with his family relationships or sleeping pattern he has no side effects associated with current pain control medications. There is no past medical history of documented coronary artery disease or pulmonary disease. Problems: Additional Assessment/Plan Continue with indocin off opioids continue PPI's Consultation Date/Type/Reason Admit Date/Time May 25, 2017 at 19:30 Initial Consult Date 06/04/17 Type of Consultation: Pain Management Referring Provider: JACKIE RUDOLPH 24 HR Interval Summary Free Text/Dictation He is comfortable today without side effects on NSAIDS. Denies systemic side effects. Pain now mild denies N,V, abdominal pains or indigestion. Exam/Review of Systems Vital Signs Vitals Vital Signs Date Time Temp Pulse Resp B/P Pulse Ox O2 Delivery O2 Flow Rate FiO2 06/07/17 08:01 98.0 97 20 115/83 100 06/06/17 20:00 Room Air Intake and Output 06/06/17 06/06/17 06/07/17 15:00 23:00 07:00 Intake Total 650 ml 2250 ml 1720 ml Output Total 1100 ml Balance 650 ml 2250 ml 620 ml Exam Constitutional: alert, oriented, well developed Respiratory: clear to auscultation, normal air movement Cardiovascular: nl pulses, regular rate and rhythm Neurological: ADMINISTRATIVE ASSOCIATE II-XII intact, nl mental status, nl speech, nl strength Medications Medications Current Medications Nicotine (Nicoderm 21 Mg/ 24hr) 1 patch DAILY TRANSDERM ; Start 05/26/17 at 09: 00 Methylprednisolone Sodium Succinate (Solu-Medrol) 60 mg BID IV Last administered on 06/06/17 21:58; Admin Dose 60 MG; Start 05/25/17 at 21:00 Ondansetron HCl (Zofran Inj) 4 mg Q6H PRN IV NAUSEA AND/OR VOMITING Last administered on 06/01/17 22:10; Admin Dose 4 MG; Start 05/25/17 at 21:00 Famotidine (Pepcid) 20 mg BID PO Last administered on 06/06/17 21:58; Admin Dose 20 MG; Start 05/26/17 at 09:00 Salmeterol Xinafoate/ Fluticasone (Advair 250/50 Diskus) 1 inh BID INH Last administered on 06/06/17 21:59; Admin Dose 1 INH; Start 05/26/17 at 09:00 Atorvastatin Calcium (Lipitor) 20 mg HS PO Last administered on 06/06/17 21:58 ; Admin Dose 20 MG; Start 05/26/17 at 21:00 Promethazine HCl/ Codeine 5 ml 5 ml Q4H PRN PO COUGH Last administered on 19:47; Admin Dose 5 ML; Start 05/26/17 at 19:00 Sodium Chloride (1/2 NS) 1,000 ml @ 100 mls/hr Q10H IV Last administered on 23:12; Admin Dose 100 MLS/HR; Start 05/27/17 at 10:00 Eye Lubricant (Artificial Tears Oph) 2 drop BID PRN BOTH EYES DRY EYES Last administered on 06/07/17 02:31; Admin Dose 2 DROP; Start 05/30/17 at 16:00 Bisacodyl (Dulcolax) 10 mg DAILY PRN PO CONSTIPATION Last administered on 11:23; Admin Dose 10 MG; Start 06/04/17 at 11:00 Indomethacin (Indocin) 25 mg QID PO Last administered on 06/06/17 21:58; Admin Dose 25 MG; Start 06/05/17 at 17:00 Al Hydrox/Mg Hydrox/Simethicone (Mag-Al Plus) 30 ml Q6H PRN PO GASTROINTESTINAL UPSET Last administered on 06/06/17 17:44; Admin Dose 30 ML; Start 06/06/17 at 17:30 SPARKLE AMOS Jun 07, 2017 08:53
[2017-06-07] MEDS: NICOTINE (21 MG/24 HR) PATCH TRANSDERM SCH (09:00)
[2017-06-07] MEDS: FAMOTIDINE 20 MG TAB PO SCH ×2 (09:00→20:17)
[2017-06-07] MEDS: METHYLPREDNISOLONE 125 MG INJ IV SCH ×2 (09:00→20:17)
[2017-06-07] MEDS: INDOMETHACIN 25 MG PO SCH ×4 (09:01→20:17)
[2017-06-07] MEDS: SALMETEROL/FLUTICASONE 250/50 INHA INH SCH ×2 (09:01→20:18)
--- NOTE | 2017-06-07 09:46 | PN ---
Date/Time of Note Date/Time of Note DATE: 06/07/17 TIME: 09:46 Assessment/Plan Lines/Catheters IV Catheter Type (from [facility]): Peripheral IV Cody in Place (from [facility]): No Assessment/Plan Chief Complaint/Hosp Course Mediastinal adenopathy Pathology preliminary report A, B-Anterior mediastinal mass, mediastinoscopic biopsies: -- Spindle cell lesion with sclerosis, and patchy lymphocytic cell infiltrate ( please see comment). -- AFB and GMS stains with appropriate controls (B1) show no identifiable pathogenic organisms. C-Mediastinal fat, biopsy: -- Adipose tissue with no significant histopathological features. Status post mediastinoscopy and biopsy Awaiting full biopsy results Discussed with the patient Problems: Subjective 24 Hr Interval Summary Constitutional: improved Pain Control: mild Exam/Review of Systems Vital Signs Vitals Vital Signs Date Time Temp Pulse Resp B/P Pulse Ox O2 Delivery O2 Flow Rate FiO2 06/07/17 08:01 98.0 97 20 115/83 100 06/06/17 20:00 Room Air Intake and Output 06/06/17 06/06/17 06/07/17 15:00 23:00 07:00 Intake Total 650 ml 2250 ml 1720 ml Output Total 1100 ml Balance 650 ml 2250 ml 620 ml Exam ENMT: mucosa pink and moist, nl external ears & nose, nl lips & teeth, nl nasal mucosa & septum Neck: non-tender, supple Respiratory: clear to auscultation, normal air movement Cardiovascular: nl pulses, regular rate and rhythm Gastrointestinal: nl liver, spleen, non-tender, soft MELISSA JJ MD Jun 07, 2017 09:46
--- NOTE | 2017-06-07 11:11 | CONS ---
Date/Time of Note Date/Time of Note DATE: 06/07/17 TIME: 11:09 Assessment/Plan Assessment/Plan Chief Complaint/Hosp Course assessment/impression - chronic cough of unclear etiology s/p mediastinoscopy with biopsy on 2016. Took empiric ceftriaxone and azithromycin 05/28/2017-06/02/2017 - extensive mediastinal and hilar lymphadenopathy with clear parenchyma. 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 Lane - hoarseness - Pt has had extensive occupational exposure. 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 - mild paronychia of toenail, resolved - so far: negative for urine legionella antigen, galactomannan in serum, 1,3- [id number], crypto antigen in serum, HIV, urine histo antigen, viruses ( influenza, parainfluenza, RSV, adenovirus), mycobacerium tuberculosis NAAT to Pt 's sputum sample from 05/29/2017, cocci serology, Bx (aerobic and anaerobic cultures, fungi, AFB smear), bordetella - leukocytosis, on steroid since 05/25/2017 - labile emotional state, may be due to steroid recommendations - pending results: histoplasma CF (urine histoplasma antigen was negative previously), biopsy (mycobacterium tuberculosis NAAT), review of Bx by a pathologist at [facility] - continue to monitor Pt off systemic antibiotic - consider adjusting his steroid management d/w Pt, Dr. Humphreys Problems: Consultation Date/Type/Reason Admit Date/Time May 25, 2017 at 19:30 Initial Consult Date 05/29/17 Type of Consultation: ID Referring Provider: JACKIE HUMPHREYS 24 HR Interval Summary Constitutional: other (would sometimes get crying fit) Detailed Summary Eyes: no complaints ENT: no complaints Respiratory: other (hiccups), No cough, No pleuritic pain, No shortness of breath, No sputum Cardiovascular: no complaints Gastrointestinal: no complaints Genitourinary: no complaints Musculoskeletal: no complaints Skin: no complaints Neurologic: no complaints Endocrine: no complaints Psychological: other (would get crying fits) Exam/Review of Systems Vital Signs Vitals Vital Signs Date Time Temp Pulse Resp B/P Pulse Ox O2 Delivery O2 Flow Rate FiO2 06/07/17 08:01 98.0 97 20 115/83 100 06/06/17 20:00 Room Air Intake and Output 06/06/17 06/06/17 06/07/17 15:00 23:00 07:00 Intake Total 650 ml 2250 ml 1720 ml Output Total 1100 ml Balance 650 ml 2250 ml 620 ml Exam Constitutional: alert, oriented, well developed Psych: nl mood/affect, no complaints Head: atraumatic, normocephalic Eyes: nl conjunctiva, nl lids, nl sclera ENMT: nl external ears & nose, nl nasal mucosa & septum Neck: supple Respiratory: clear to auscultation, normal air movement Cardiovascular: nl pulses, regular rate and rhythm Gastrointestinal: non-tender, soft Musculoskeletal: nl extremities to inspection, nl gait and stance Extremities: normal pulses, No edema Neurological: CLEAT MAKER II-XII intact, nl mental status, nl speech, nl strength Skin: nl turgor Medications Medications Current Medications Nicotine (Nicoderm 21 Mg/ 24hr) 1 patch DAILY TRANSDERM ; Start 05/26/17 at 09: 00 Methylprednisolone Sodium Succinate (Solu-Medrol) 60 mg BID IV Last administered on 06/07/17 09:00; Admin Dose 60 MG; Start 05/25/17 at 21:00 Ondansetron HCl (Zofran Inj) 4 mg Q6H PRN IV NAUSEA AND/OR VOMITING Last administered on 06/01/17 22:10; Admin Dose 4 MG; Start 05/25/17 at 21:00 Famotidine (Pepcid) 20 mg BID PO Last administered on 06/07/17 09:00; Admin Dose 20 MG; Start 05/26/17 at 09:00 Salmeterol Xinafoate/ Fluticasone (Advair 250/50 Diskus) 1 inh BID INH Last administered on 06/07/17 09:01; Admin Dose 1 INH; Start 05/26/17 at 09:00 Atorvastatin Calcium (Lipitor) 20 mg HS PO Last administered on 06/06/17 21:58 ; Admin Dose 20 MG; Start 05/26/17 at 21:00 Promethazine HCl/ Codeine 5 ml 5 ml Q4H PRN PO COUGH Last administered on 19:47; Admin Dose 5 ML; Start 05/26/17 at 19:00 Sodium Chloride (1/2 NS) 1,000 ml @ 100 mls/hr Q10H IV Last administered on 23:12; Admin Dose 100 MLS/HR; Start 05/27/17 at 10:00 Eye Lubricant (Artificial Tears Oph) 2 drop BID PRN BOTH EYES DRY EYES Last administered on 06/07/17 02:31; Admin Dose 2 DROP; Start 05/30/17 at 16:00 Bisacodyl (Dulcolax) 10 mg DAILY PRN PO CONSTIPATION Last administered on 11:23; Admin Dose 10 MG; Start 06/04/17 at 11:00 Indomethacin (Indocin) 25 mg QID PO Last administered on 06/07/17 09:01; Admin Dose 25 MG; Start 06/05/17 at 17:00 Al Hydrox/Mg Hydrox/Simethicone (Mag-Al Plus) 30 ml Q6H PRN PO GASTROINTESTINAL UPSET Last administered on 06/06/17 17:44; Admin Dose 30 ML; Start 06/06/17 at 17:30 LAVERNE WOOTEN M.D. Jun 07, 2017 11:11
[2017-06-07] MEDS: AL HYDROX/MG HYDROX/SIMETH 30 ML CUP PO PRN (12:51)
--- NOTE | 2017-06-07 13:03 | CONS ---
Date/Time of Note Date/Time of Note DATE: 06/07/17 TIME: 13:01 Assessment/Plan Assessment/Plan Additional Assessment/Plan Assessment recommendations; 1. Patient admitted for nonspecific chest pain discovered to have mediastinal and hilar adenopathy, status post mediastinoscopy with nonspecific diagnosis based upon histopathology. Awaiting expert opinion. 2. Etiology of mediastinal lymph adenopathy is unclear at this point. Possibly related to occupational dust exposure. Continue current treatment. Awaiting final pathology report. Consultation Date/Type/Reason Admit Date/Time May 25, 2017 at 19:30 Initial Consult Date 05/29/17 Type of Consultation: Pulmonary Referring Provider: JACKIE RUDOLPH 24 HR Interval Summary Free Text/Dictation Patient condition stable. Remains awake alert. Denies any shortness breath, chest pain. General exam; middle-aged male, awake alert currently in no distress. Exam/Review of Systems Vital Signs Vitals Vital Signs Date Time Temp Pulse Resp B/P Pulse Ox O2 Delivery O2 Flow Rate FiO2 06/07/17 08:01 98.0 97 20 115/83 100 06/06/17 20:00 Room Air Intake and Output 06/06/17 06/06/17 06/07/17 15:00 23:00 07:00 Intake Total 650 ml 2250 ml 1720 ml Output Total 1100 ml Balance 650 ml 2250 ml 620 ml Exam HEENT exam; supple neck, no JVD. No lymphadenopathy. Midline trachea. No thyromegaly. There is a well-healing suprasternal scar. Patient has good dentition. Pupils are midsize and reactive to light bilaterally. Chest exam; clear to auscultation. S1-S2 audible, no murmurs. Regular rhythm. Abdomen exam; soft, nontender. No organomegaly. Bowel sounds audible. Extremity exam; no peripheral edema. No clubbing. Pulses 2+ bilaterally. WATERPROOFER exam; no focal deficit. Medications Medications Current Medications Nicotine (Nicoderm 21 Mg/ 24hr) 1 patch DAILY TRANSDERM ; Start 05/26/17 at 09: 00 Methylprednisolone Sodium Succinate (Solu-Medrol) 60 mg BID IV Last administered on 06/07/17t 09:00; Admin Dose 60 MG; Start 05/25/17 at 21:00 Ondansetron HCl (Zofran Inj) 4 mg Q6H PRN IV NAUSEA AND/OR VOMITING Last administered on 06/01/17 22:10; Admin Dose 4 MG; Start 05/25/17 at 21:00 Famotidine (Pepcid) 20 mg BID PO Last administered on 06/07/17 09:00; Admin Dose 20 MG; Start 05/26/17 at 09:00 Salmeterol Xinafoate/ Fluticasone (Advair 250/50 Diskus) 1 inh BID INH Last administered on 06/07/17 09:01; Admin Dose 1 INH; Start 05/26/17 at 09:00 Atorvastatin Calcium (Lipitor) 20 mg HS PO Last administered on 06/06/17 21:58 ; Admin Dose 20 MG; Start 05/26/17 at 21:00 Promethazine HCl/ Codeine 5 ml 5 ml Q4H PRN PO COUGH Last administered on 19:47; Admin Dose 5 ML; Start 05/26/17 at 19:00 Sodium Chloride (1/2 NS) 1,000 ml @ 100 mls/hr Q10H IV Last administered on 11:00; Admin Dose 100 MLS/HR; Start 05/27/17 at 10:00 Eye Lubricant (Artificial Tears Oph) 2 drop BID PRN BOTH EYES DRY EYES Last administered on 06/07/17 02:31; Admin Dose 2 DROP; Start 05/30/17 at 16:00 Bisacodyl (Dulcolax) 10 mg DAILY PRN PO CONSTIPATION Last administered on 11:23; Admin Dose 10 MG; Start 06/04/17 at 11:00 Indomethacin (Indocin) 25 mg QID PO Last administered on 06/07/17 12:47; Admin Dose 25 MG; Start 06/05/17 at 17:00 Al Hydrox/Mg Hydrox/Simethicone (Mag-Al Plus) 30 ml Q6H PRN PO GASTROINTESTINAL UPSET Last administered on 06/07/17 12:51; Admin Dose 30 ML; Start 06/06/17 at 17:30 TOÑITO LARA Jun 07, 2017 13:03
[2017-06-07 14:15] VITALS: BP 108/62; RESP 20
--- NOTE | 2017-06-07 14:31 | PN ---
Date/Time of Note Date/Time of Note DATE: 06/07/17 TIME: 14:30 Assessment/Plan VTE Prophylaxis VTE Prophylaxis Intervention: SCD's Lines/Catheters IV Catheter Type (from Nrs): Peripheral IV Urinary Cath still in place: No Assessment/Plan Chief Complaint/Hosp Course Assessment and plan 1. Chronic cough. Patient with CT scan of the chest showing extensive lymphadenopathy throughout the mediastinum and buzz consistent with suspect neoplasm. Patient without for underlying tuberculosis. ID and thoracic surgeon following. Of note patient is status post mediastinoscopy with biopsy done on June 01, 2017. Pathology unclear at this time. Sample sent to [facility] for further review. We will follow-up with result. No reports of cough at this time. Appears improved. 2. Dyslipidemia. Continue on statin 3. History of nicotine use. Placed on nicotine patch Disposition plan: Off antibiotics at this time. No cough reported at this time. Awaiting pathology results. Further recommendations pending clinical course Discussed plan of care with Dr. Humphreys Problems: Subjective 24 Hr Interval Summary Free Text/Dictation Reports no cough at this time. Denies any chest pain. Comfortable at present Exam/Review of Systems Vital Signs Vitals Vital Signs Date Time Temp Pulse Resp B/P Pulse Ox O2 Delivery O2 Flow Rate FiO2 06/07/17 14:15 98.0 76 20 108/62 99 06/06/17 20:00 Room Air Intake and Output 06/06/17 06/06/17 06/07/17 14:59 22:59 06:59 Intake Total 650 ml 2250 ml 1720 ml Output Total 1100 ml Balance 650 ml 2250 ml 620 ml Exam Constitutional: alert, oriented Psych: nl mood/affect Head: normocephalic Neck: No jvd Respiratory: clear to auscultation, normal air movement Cardiovascular: regular rate and rhythm Gastrointestinal: non-tender, soft Musculoskeletal: nl extremities to inspection, nl gait and stance Neurological: ORE PUNCHER II-XII intact, nl mental status, nl speech Medications Medications Current Medications Nicotine (Nicoderm 21 Mg/ 24hr) 1 patch DAILY TRANSDERM ; Start 05/26/17 at 09: 00 Methylprednisolone Sodium Succinate (Solu-Medrol) 60 mg BID IV Last administered on 06/07/17t 09:00; Admin Dose 60 MG; Start 05/25/17 at 21:00 Ondansetron HCl (Zofran Inj) 4 mg Q6H PRN IV NAUSEA AND/OR VOMITING Last administered on 06/01/17 22:10; Admin Dose 4 MG; Start 05/25/17 at 21:00 Famotidine (Pepcid) 20 mg BID PO Last administered on 06/07/17 09:00; Admin Dose 20 MG; Start 05/26/17 at 09:00 Salmeterol Xinafoate/ Fluticasone (Advair 250/50 Diskus) 1 inh BID INH Last administered on 06/07/17 09:01; Admin Dose 1 INH; Start 05/26/17 at 09:00 Atorvastatin Calcium (Lipitor) 20 mg HS PO Last administered on 06/06/17 21:58 ; Admin Dose 20 MG; Start 05/26/17 at 21:00 Promethazine HCl/ Codeine 5 ml 5 ml Q4H PRN PO COUGH Last administered on 19:47; Admin Dose 5 ML; Start 05/26/17 at 19:00 Sodium Chloride (1/2 NS) 1,000 ml @ 100 mls/hr Q10H IV Last administered on 11:00; Admin Dose 100 MLS/HR; Start 05/27/17 at 10:00 Eye Lubricant (Artificial Tears Oph) 2 drop BID PRN BOTH EYES DRY EYES Last administered on 06/07/17 02:31; Admin Dose 2 DROP; Start 05/30/17 at 16:00 Bisacodyl (Dulcolax) 10 mg DAILY PRN PO CONSTIPATION Last administered on 11:23; Admin Dose 10 MG; Start 06/04/17 at 11:00 Indomethacin (Indocin) 25 mg QID PO Last administered on 06/07/17 12:47; Admin Dose 25 MG; Start 06/05/17 at 17:00 Al Hydrox/Mg Hydrox/Simethicone (Mag-Al Plus) 30 ml Q6H PRN PO GASTROINTESTINAL UPSET Last administered on 06/07/17 12:51; Admin Dose 30 ML; Start 06/06/17 at 17:30 NERISSA PARK Jun 07, 2017 14:31
[2017-06-07 20:10] VITALS: BP 123/75; PULSE 60; RESP 20
[2017-06-07] MEDS: ATORVASTATIN 20 MG TAB PO SCH (20:17)
[2017-06-07] MEDS: ZOLPIDEM 5 MG TAB PO PRN (23:08)
[2017-06-08] MEDS: SOD CHLORIDE 0.45% 1,000 ML IV SCH ×3 (02:00→21:28)
[2017-06-08 02:43] VITALS: BP 96/54; PULSE 65; RESP 20
[2017-06-08 07:39] VITALS: BP 112/72; RESP 20
[2017-06-08] MEDS: NICOTINE (21 MG/24 HR) PATCH TRANSDERM SCH (09:00)
[2017-06-08] MEDS: SALMETEROL/FLUTICASONE 250/50 INHA INH SCH ×2 (09:02→21:27)
[2017-06-08] MEDS: INDOMETHACIN 25 MG PO SCH ×4 (09:02→21:28)
[2017-06-08] MEDS: FAMOTIDINE 20 MG TAB PO SCH ×2 (09:02→21:28)
[2017-06-08] MEDS: METHYLPREDNISOLONE 125 MG INJ IV SCH ×2 (09:03→21:28)
--- NOTE | 2017-06-08 10:28 | CONS ---
Date/Time of Note Date/Time of Note DATE: 06/08/17 TIME: 10:19 Assessment/Plan Assessment/Plan Chief Complaint/Hosp Course assessment/impression - chronic cough of unclear etiology s/p mediastinoscopy with biopsy on 2016. Took empiric ceftriaxone and azithromycin 05/28/2017-06/02/2017 - extensive mediastinal and hilar lymphadenopathy with clear parenchyma. 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 Lane - hoarseness - Pt has had extensive occupational exposure. 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 - mild paronychia of toenail, resolved - so far: negative for urine legionella antigen, galactomannan in serum, 1,3- [id number], crypto antigen in serum, HIV, urine histo antigen, viruses ( influenza, parainfluenza, RSV, adenovirus), mycobacerium tuberculosis NAAT to Pt 's sputum sample from 05/29/2017, cocci serology, Bx (aerobic and anaerobic cultures, fungi, AFB smear), bordetella - leukocytosis, on steroid since 05/25/2017 - labile emotional state, may be due to steroid recommendations - pending results: histoplasma CF (urine histoplasma antigen was negative previously), biopsy (mycobacterium tuberculosis NAAT), review of Bx by a pathologist at [facility] - continue to monitor Pt off systemic antibiotic management d/w Pt Problems: Consultation Date/Type/Reason Admit Date/Time May 25, 2017 at 19:30 Initial Consult Date 05/29/17 Type of Consultation: ID Referring Provider: JACKIE RUDOLPH 24 HR Interval Summary Constitutional: no complaints Detailed Summary Eyes: no complaints ENT: no complaints Respiratory: no complaints Cardiovascular: no complaints Gastrointestinal: no complaints Genitourinary: no complaints Musculoskeletal: no complaints Skin: no complaints Neurologic: no complaints Endocrine: no complaints Lymphatic: no complaints Psychological: other (did not have a crying spell) Immunologic: no complaints Exam/Review of Systems Vital Signs Vitals Vital Signs Date Time Temp Pulse Resp B/P Pulse Ox O2 Delivery O2 Flow Rate FiO2 06/08/17 07:39 98.0 86 20 112/72 98 06/08/17 02:43 Room Air Intake and Output 06/07/17 06/07/17 06/08/17 15:00 23:00 07:00 Intake Total 370 ml 2020 ml 1060 ml Output Total 1300 ml 1150 ml Balance 370 ml 720 ml -90 ml Exam Constitutional: alert, oriented, well developed Psych: nl mood/affect, no complaints Head: atraumatic, normocephalic Eyes: nl conjunctiva, nl lids, nl sclera ENMT: mucosa pink and moist, nl external ears & nose, nl nasal mucosa & septum Neck: non-tender, supple Respiratory: clear to auscultation, normal air movement Cardiovascular: nl pulses, regular rate and rhythm Musculoskeletal: nl extremities to inspection Extremities: normal pulses, No edema Neurological: PULMONARY DISEASE SPECIALIST II-XII intact, nl mental status, nl speech, nl strength Skin: nl turgor Medications Medications Current Medications Nicotine (Nicoderm 21 Mg/ 24hr) 1 patch DAILY TRANSDERM ; Start 05/26/17 at 09: 00 Methylprednisolone Sodium Succinate (Solu-Medrol) 60 mg BID IV Last administered on 06/08/17 09:03; Admin Dose 60 MG; Start 05/25/17 at 21:00 Ondansetron HCl (Zofran Inj) 4 mg Q6H PRN IV NAUSEA AND/OR VOMITING Last administered on 06/01/17 22:10; Admin Dose 4 MG; Start 05/25/17 at 21:00 Famotidine (Pepcid) 20 mg BID PO Last administered on 06/08/17 09:02; Admin Dose 20 MG; Start 05/26/17 at 09:00 Salmeterol Xinafoate/ Fluticasone (Advair 250/50 Diskus) 1 inh BID INH Last administered on 06/08/17 09:02; Admin Dose 1 INH; Start 05/26/17 at 09:00 Atorvastatin Calcium (Lipitor) 20 mg HS PO Last administered on 06/07/17 20:17 ; Admin Dose 20 MG; Start 05/26/17 at 21:00 Promethazine HCl/ Codeine 5 ml 5 ml Q4H PRN PO COUGH Last administered on 19:47; Admin Dose 5 ML; Start 05/26/17 at 19:00 Sodium Chloride (1/2 NS) 1,000 ml @ 100 mls/hr Q10H IV Last administered on 22:22; Admin Dose 100 MLS/HR; Start 05/27/17 at 10:00 Eye Lubricant (Artificial Tears Oph) 2 drop BID PRN BOTH EYES DRY EYES Last administered on 06/07/17 02:31; Admin Dose 2 DROP; Start 05/30/17 at 16:00 Bisacodyl (Dulcolax) 10 mg DAILY PRN PO CONSTIPATION Last administered on 11:23; Admin Dose 10 MG; Start 06/04/17 at 11:00 Indomethacin (Indocin) 25 mg QID PO Last administered on 06/08/17 09:02; Admin Dose 25 MG; Start 06/05/17 at 17:00 Al Hydrox/Mg Hydrox/Simethicone (Mag-Al Plus) 30 ml Q6H PRN PO GASTROINTESTINAL UPSET Last administered on 06/07/17 12:51; Admin Dose 30 ML; Start 06/06/17 at 17:30 Zolpidem Tartrate (Ambien) 10 mg HS PRN PO INSOMNIA Last administered on 23:08; Admin Dose 10 MG; Start 06/07/17 at 22:30 LAVERNE WOOTEN M.D. Jun 08, 2017 10:28
[2017-06-08 10:56] LABS: ABNORMAL IP MESSAGE 1; BASOPHILS % 0.1 % (0.0-2.0); LYMPHOCYTES # 0.8 10^3/ul (0.8-2.9); LYMPHOCYTES % 3.5 % (15.0-51.0); MEAN CORPUSCULAR HEMOGLOBIN 29.1 pg (29.0-33.0); MEAN CORPUSCULAR HGB CONC 33.3 g/dl (32.0-37.0); MEAN CORPUSCULAR VOLUME 87.4 fl (82.0-101.0); MEAN PLATELET VOLUME 9.3 fl (7.4-10.4); MONOCYTE # 1.3 10^3/ul (0.3-0.9); MONOCYTES % 5.7 % (0.0-11.0); NEUTROPHIL # 20.4 10^3/ul (1.6-7.5); NEUTROPHILS % 89.4 % (39.0-77.0); PLATELET COUNT 294 10^3/UL (140-415); POSITIVE DIFF @See below; RED BLOOD COUNT 5.15 10^6/ul (4.70-6.10); RED CELL DISTRIBUTION WIDTH 14.8 % (11.5-14.5); WHITE BLOOD COUNT 22.8 10^3/ul (4.8-10.8)
[2017-06-08 11:22] LABS: CALCIUM 9.1 mg/dl (8.4-10.2); CREATININE 0.77 mg/dl (0.61-1.24); POTASSIUM 4.3 mmol/L (3.5-5.1)
--- NOTE | 2017-06-08 12:07 | PN ---
Date/Time of Note Date/Time of Note DATE: 06/08/17 TIME: 12:07 Assessment/Plan Lines/Catheters IV Catheter Type (from [facility]): Peripheral IV [place] in Place (from [facility]): No Assessment/Plan Chief Complaint/Hosp Course Mediastinal adenopathy Pathology preliminary report A, B-Anterior mediastinal mass, mediastinoscopic biopsies: -- Spindle cell lesion with sclerosis, and patchy lymphocytic cell infiltrate ( please see comment). -- AFB and GMS stains with appropriate controls (B1) show no identifiable pathogenic organisms. C-Mediastinal fat, biopsy: -- Adipose tissue with no significant histopathological features. Status post mediastinoscopy and biopsy Awaiting full biopsy results Discussed with the patient Problems: Subjective 24 Hr Interval Summary Constitutional: improved Pain Control: mild Exam/Review of Systems Vital Signs Vitals Vital Signs Date Time Temp Pulse Resp B/P Pulse Ox O2 Delivery O2 Flow Rate FiO2 06/08/17 07:39 98.0 86 20 112/72 98 06/08/17 02:43 Room Air Intake and Output 06/07/17 06/07/17 06/08/17 15:00 23:00 07:00 Intake Total 370 ml 2020 ml 1060 ml Output Total 1300 ml 1150 ml Balance 370 ml 720 ml -90 ml Exam Neck: non-tender, supple Respiratory: clear to auscultation, normal air movement Cardiovascular: nl pulses, regular rate and rhythm Gastrointestinal: nl liver, spleen, non-tender, soft Results Result Diagram: 06/08/17 1039 06/08/17 1039 MELISSA JJ MD Jun 08, 2017 12:07
--- NOTE | 2017-06-08 13:12 | CONS ---
Date/Time of Note Date/Time of Note DATE: 06/08/17 TIME: 13:06 Assessment/Plan Assessment/Plan Chief Complaint/Hosp Course Problems: Additional Assessment/Plan Continue with nonsteroidal anti-inflammatory medications with appropriate precautions Consider tapering steroid per internal medicine Consultation Date/Type/Reason Admit Date/Time May 25, 2017 at 19:30 Initial Consult Date 06/04/17 Type of Consultation: Pain management Reason for Consultation He is feeling well denies severe chest pain. Rates his pain 3/10 compared to 10 /10 prior to changing treatment. Denies nausea vomiting abdominal discomfort diarrhea constipation melanotic stools or bright red blood per rectum. He is not requesting opioids. Referring Provider: JACKIE RUDOLPH Exam/Review of Systems Vital Signs Vitals Vital Signs Date Time Temp Pulse Resp B/P Pulse Ox O2 Delivery O2 Flow Rate FiO2 06/08/17 07:39 98.0 86 20 112/72 98 06/08/17 02:43 Room Air Intake and Output 06/07/17 06/07/17 06/08/17 15:00 23:00 07:00 Intake Total 370 ml 2020 ml 1060 ml Output Total 1300 ml 1150 ml Balance 370 ml 720 ml -90 ml Exam Constitutional: alert, oriented, well developed Neck: non-tender, supple Neurological: INSPECTOR MATERIAL DISPOSITION II-XII intact, nl mental status, nl speech, nl strength Results Result Diagram: 06/08/17 1039 06/08/17 1039 Results 24 hrs Laboratory Tests Test 06/08/17 10:39 White Blood Count 22.8 #H Red Blood Count 5.15 Hemoglobin 15.0 Hematocrit 45.0 Mean Corpuscular Volume 87.4 Mean Corpuscular Hemoglobin 29.1 Mean Corpuscular Hemoglobin Concent 33.3 Red Cell Distribution Width 14.8 H Platelet Count 294 Mean Platelet Volume 9.3 Neutrophils % 89.4 H Lymphocytes % 3.5 L Monocytes % 5.7 Eosinophils % 0.0 Basophils % 0.1 Nucleated Red Blood Cells % 0.0 Neutrophils # 20.4 H Lymphocytes # 0.8 Monocytes # 1.3 H Eosinophils # 0.0 Basophils # 0.0 Nucleated Red Blood Cells # 0.0 Sodium Level 135 Potassium Level 4.3 Chloride Level 95 L Carbon Dioxide Level 25 Anion Gap 19 H Blood Urea Nitrogen 24 H Creatinine 0.77 Glucose Level 102 Calcium Level 9.1 Medications Medications Current Medications Nicotine (Nicoderm 21 Mg/ 24hr) 1 patch DAILY TRANSDERM ; Start 05/26/17 at 09: 00 Methylprednisolone Sodium Succinate (Solu-Medrol) 60 mg BID IV Last administered on 06/08/17 09:03; Admin Dose 60 MG; Start 05/25/17 at 21:00 Ondansetron HCl (Zofran Inj) 4 mg Q6H PRN IV NAUSEA AND/OR VOMITING Last administered on 06/01/17 22:10; Admin Dose 4 MG; Start 05/25/17 at 21:00 Famotidine (Pepcid) 20 mg BID PO Last administered on 06/08/17 09:02; Admin Dose 20 MG; Start 05/26/17 at 09:00 Salmeterol Xinafoate/ Fluticasone (Advair 250/50 Diskus) 1 inh BID INH Last administered on 06/08/17 09:02; Admin Dose 1 INH; Start 05/26/17 at 09:00 Atorvastatin Calcium (Lipitor) 20 mg HS PO Last administered on 06/07/17 20:17 ; Admin Dose 20 MG; Start 05/26/17 at 21:00 Promethazine HCl/ Codeine 5 ml 5 ml Q4H PRN PO COUGH Last administered on 19:47; Admin Dose 5 ML; Start 05/26/17 at 19:00 Sodium Chloride (1/2 NS) 1,000 ml @ 100 mls/hr Q10H IV Last administered on 11:34; Admin Dose 100 MLS/HR; Start 05/27/17 at 10:00 Eye Lubricant (Artificial Tears Oph) 2 drop BID PRN BOTH EYES DRY EYES Last administered on 06/07/17 02:31; Admin Dose 2 DROP; Start 05/30/17 at 16:00 Bisacodyl (Dulcolax) 10 mg DAILY PRN PO CONSTIPATION Last administered on 11:23; Admin Dose 10 MG; Start 06/04/17 at 11:00 Indomethacin (Indocin) 25 mg QID PO Last administered on 06/08/17 12:27; Admin Dose 25 MG; Start 06/05/17 at 17:00 Al Hydrox/Mg Hydrox/Simethicone (Mag-Al Plus) 30 ml Q6H PRN PO GASTROINTESTINAL UPSET Last administered on 06/07/17 12:51; Admin Dose 30 ML; Start 06/06/17 at 17:30 Zolpidem Tartrate (Ambien) 10 mg HS PRN PO INSOMNIA Last administered on 23:08; Admin Dose 10 MG; Start 06/07/17 at 22:30 SPARKLE AMOS Jun 08, 2017 13:12 ; Admin Dose 20 MG; Start 05/26/17 at 21:00 Promethazine HCl/ Codeine 5 ml 5 ml Q4H PRN PO COUGH Last administered on 19:47; Admin Dose 5 ML; Start 05/26/17 at 19:00 Sodium Chloride (1/2 NS) 1,000 ml @ 100 mls/hr Q10H IV Last administered on 11:34; Admin Dose 100 MLS/HR; Start 05/27/17 at 10:00 Eye Lubricant (Artificial Tears Oph) 2 drop BID PRN BOTH EYES DRY EYES Last administered on 06/07/17 02:31; Admin Dose 2 DROP; Start 05/30/17 at 16:00 Bisacodyl (Dulcolax) 10 mg DAILY PRN PO CONSTIPATION Last administered on 11:23; Admin Dose 10 MG; Start 06/04/17 at 11:00 Indomethacin (Indocin) 25 mg QID PO Last administered on 06/08/17 12:27; Admin Dose 25 MG; Start 06/05/17 at 17:00 Al Hydrox/Mg Hydrox/Simethicone (Mag-Al Plus) 30 ml Q6H PRN PO GASTROINTESTINAL UPSET Last administered on 06/07/17 12:51; Admin Dose 30 ML; Start 06/06/17 at 17:30 Zolpidem Tartrate (Ambien) 10 mg HS PRN PO INSOMNIA Last administered on 23:08; Admin Dose 10 MG; Start 06/07/17 at 22:30 SPARKLE AMOS Jun 08, 2017 13:12
[2017-06-08 14:14] VITALS: BP 132/83; RESP 20
[2017-06-08 15:38] VITALS: BP 128/71; PULSE 85; RESP 18
[2017-06-08 19:44] VITALS: BP 116/65; RESP 19
[2017-06-08] MEDS: ATORVASTATIN 20 MG TAB PO SCH (21:28)
[2017-06-08] MEDS: ZOLPIDEM 5 MG TAB PO PRN (23:37)
[2017-06-09 02:47] VITALS: BP 99/67; RESP 20
[2017-06-09 07:47] VITALS: BP 124/75; RESP 18
[2017-06-09] MEDS: NICOTINE (21 MG/24 HR) PATCH TRANSDERM SCH (08:28)
[2017-06-09] MEDS: SOD CHLORIDE 0.45% 1,000 ML IV SCH ×2 (09:02→18:00)
[2017-06-09] MEDS: INDOMETHACIN 25 MG PO SCH ×4 (09:02→20:50)
[2017-06-09] MEDS: SALMETEROL/FLUTICASONE 250/50 INHA INH SCH ×2 (09:02→20:51)
[2017-06-09] MEDS: FAMOTIDINE 20 MG TAB PO SCH ×2 (09:02→20:50)
[2017-06-09] MEDS: METHYLPREDNISOLONE 125 MG INJ IV SCH (09:02)
--- NOTE | 2017-06-09 10:16 | CONS ---
Date/Time of Note Date/Time of Note DATE: 06/09/17 TIME: 10:02 Assessment/Plan Assessment/Plan Chief Complaint/Hosp Course assessment/impression - chronic cough of unclear etiology s/p mediastinoscopy with biopsy on 2016. Took empiric ceftriaxone and azithromycin 05/28/2017-06/02/2017 - extensive mediastinal and hilar lymphadenopathy with clear parenchyma. 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 Lane - hoarseness - Pt has had extensive occupational exposure. 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 - mild paronychia of toenail, resolved - so far: negative for urine legionella antigen, galactomannan in serum, 1,3- [id number], crypto antigen in serum, HIV, urine histo antigen, viruses ( influenza, parainfluenza, RSV, adenovirus), mycobacerium tuberculosis NAAT to Pt 's sputum sample from 05/29/2017, cocci serology, Bx (aerobic and anaerobic cultures, fungi, AFB smear), bordetella - leukocytosis, on steroid since 05/25/2017 - labile emotional state, may be due to steroid recommendations - pending results: histoplasma CF (urine histoplasma antigen was negative previously), biopsy (mycobacterium tuberculosis NAAT), review of Bx by a pathologist at [facility] - continue to monitor Pt off systemic antibiotic - consider steroid taper management d/w Pt, [employer] [place] Problems: Consultation Date/Type/Reason Admit Date/Time May 25, 2017 at 19:30 Initial Consult Date 05/29/17 Type of Consultation: ID Referring Provider: JACKIE RUDOLPH 24 HR Interval Summary Constitutional: no complaints Detailed Summary Eyes: no complaints ENT: no complaints Respiratory: no complaints Cardiovascular: chest pain (occasional), No lightheadedness, No palpitations, No paroxysmal nocturnal dyspnea Gastrointestinal: no complaints Genitourinary: no complaints Musculoskeletal: no complaints Skin: no complaints Neurologic: no complaints Endocrine: no complaints Psychological: nl mood/affect, no complaints Exam/Review of Systems Vital Signs Vitals Vital Signs Date Time Temp Pulse Resp B/P Pulse Ox O2 Delivery O2 Flow Rate FiO2 06/09/17 07:47 97.8 96 18 124/75 97 06/08/17 15:38 Room Air Intake and Output 06/08/17 06/08/17 06/09/17 15:00 23:00 07:00 Intake Total 300 ml 2500 ml 800 ml Output Total 1600 ml Balance 300 ml 2500 ml -800 ml Exam Constitutional: alert, oriented, well developed Psych: nl mood/affect, no complaints Head: normocephalic Eyes: nl conjunctiva, nl lids ENMT: nl external ears & nose, nl nasal mucosa & septum Neck: supple Respiratory: clear to auscultation, normal air movement Cardiovascular: nl pulses, regular rate and rhythm Musculoskeletal: nl extremities to inspection Extremities: normal pulses, No edema Results Result Diagram: 06/08/17 1039 06/08/17 1039 Results 24 hrs Laboratory Tests Test 06/08/17 10:39 White Blood Count 22.8 #H Red Blood Count 5.15 Hemoglobin 15.0 Hematocrit 45.0 Mean Corpuscular Volume 87.4 Mean Corpuscular Hemoglobin 29.1 Mean Corpuscular Hemoglobin Concent 33.3 Red Cell Distribution Width 14.8 H Platelet Count 294 Mean Platelet Volume 9.3 Neutrophils % 89.4 H Lymphocytes % 3.5 L Monocytes % 5.7 Eosinophils % 0.0 Basophils % 0.1 Nucleated Red Blood Cells % 0.0 Neutrophils # 20.4 H Lymphocytes # 0.8 Monocytes # 1.3 H Eosinophils # 0.0 Basophils # 0.0 Nucleated Red Blood Cells # 0.0 Sodium Level 135 Potassium Level 4.3 Chloride Level 95 L Carbon Dioxide Level 25 Anion Gap 19 H Blood Urea Nitrogen 24 H Creatinine 0.77 Glucose Level 102 Calcium Level 9.1 Medications Medications Current Medications Nicotine (Nicoderm 21 Mg/ 24hr) 1 patch DAILY TRANSDERM ; Start 05/26/17 at 09: 00 Methylprednisolone Sodium Succinate (Solu-Medrol) 60 mg BID IV Last administered on 06/09/17 09:02; Admin Dose 60 MG; Start 05/25/17 at 21:00 Ondansetron HCl (Zofran Inj) 4 mg Q6H PRN IV NAUSEA AND/OR VOMITING Last administered on 06/01/17 22:10; Admin Dose 4 MG; Start 05/25/17 at 21:00 Famotidine (Pepcid) 20 mg BID PO Last administered on 06/09/17 09:02; Admin Dose 20 MG; Start 05/26/17 at 09:00 Salmeterol Xinafoate/ Fluticasone (Advair 250/50 Diskus) 1 inh BID INH Last administered on 06/09/17 09:02; Admin Dose 1 INH; Start 05/26/17 at 09:00 Atorvastatin Calcium (Lipitor) 20 mg HS PO Last administered on 06/08/17 21:28 ; Admin Dose 20 MG; Start 05/26/17 at 21:00 Promethazine HCl/ Codeine 5 ml 5 ml Q4H PRN PO COUGH Last administered on 19:47; Admin Dose 5 ML; Start 05/26/17 at 19:00 Sodium Chloride (1/2 NS) 1,000 ml @ 100 mls/hr Q10H IV Last administered on 09:02; Admin Dose 100 MLS/HR; Start 05/27/17 at 10:00 Eye Lubricant (Artificial Tears Oph) 2 drop BID PRN BOTH EYES DRY EYES Last administered on 06/07/17 02:31; Admin Dose 2 DROP; Start 05/30/17 at 16:00 Bisacodyl (Dulcolax) 10 mg DAILY PRN PO CONSTIPATION Last administered on 11:23; Admin Dose 10 MG; Start 06/04/17 at 11:00 Indomethacin (Indocin) 25 mg QID PO Last administered on 06/09/17 09:02; Admin Dose 25 MG; Start 06/05/17 at 17:00 Al Hydrox/Mg Hydrox/Simethicone (Mag-Al Plus) 30 ml Q6H PRN PO GASTROINTESTINAL UPSET Last administered on 06/07/17 12:51; Admin Dose 30 ML; Start 06/06/17 at 17:30 Zolpidem Tartrate (Ambien) 10 mg HS PRN PO INSOMNIA Last administered on 23:37; Admin Dose 10 MG; Start 06/07/17 at 22:30 LAVERNE WOOTEN M.D. Jun 09, 2017 10:12
--- NOTE | 2017-06-09 11:07 | PN ---
Date/Time of Note Date/Time of Note LATE ENTRY DATE: 06/08/17 Assessment/Plan VTE Prophylaxis VTE Prophylaxis Intervention: ambulation Lines/Catheters IV Catheter Type (from Nrsg): Peripheral IV Urinary Cath still in place: No Assessment/Plan Chief Complaint/Hosp Course Assessment and plan 1. Chronic cough. Patient with CT scan of the chest showing extensive lymphadenopathy throughout the mediastinum and buzz consistent with suspect neoplasm. Patient without for underlying tuberculosis. ID and thoracic surgeon following. Of note patient is status post mediastinoscopy with biopsy done on June 01, 2017. Pathology unclear at this time. Sample sent to [facility] for further review. We will follow-up with result. 2. Dyslipidemia. Continue on statin 3. History of nicotine use. Placed on nicotine patch Disposition plan: continue with analgesics. await for biopsy results. continue with fundraising consultant recommendations Discussed plan of care with Dr. Humphreys Problems: Subjective 24 Hr Interval Summary Free Text/Dictation reports pain controlled at this time. Exam/Review of Systems Vital Signs Vitals Vital Signs Date Time Temp Pulse Resp B/P Pulse Ox O2 Delivery O2 Flow Rate FiO2 06/09/17 07:47 97.8 96 18 124/75 97 06/08/17 15:38 Room Air Intake and Output 06/08/17 06/08/17 06/09/17 15:00 23:00 07:00 Intake Total 300 ml 2500 ml 800 ml Output Total 1600 ml Balance 300 ml 2500 ml -800 ml Exam Constitutional: alert, oriented Psych: nl mood/affect Head: normocephalic Neck: No jvd Respiratory: clear to auscultation, normal air movement Cardiovascular: regular rate and rhythm Gastrointestinal: non-tender, soft Musculoskeletal: nl extremities to inspection, nl gait and stance Neurological: CHIP TESTER II-XII intact, nl mental status, nl speech Results Result Diagram: 06/08/17 1039 06/08/17 1039 Medications Medications Current Medications Nicotine (Nicoderm 21 Mg/ 24hr) 1 patch DAILY TRANSDERM ; Start 05/26/17 at 09: 00 Ondansetron HCl (Zofran Inj) 4 mg Q6H PRN IV NAUSEA AND/OR VOMITING Last administered on 06/01/17t 22:10; Admin Dose 4 MG; Start 05/25/17 at 21:00 Famotidine (Pepcid) 20 mg BID PO Last administered on 06/09/17 09:02; Admin Dose 20 MG; Start 05/26/17 at 09:00 Salmeterol Xinafoate/ Fluticasone (Advair 250/50 Diskus) 1 inh BID INH Last administered on 06/09/17 09:02; Admin Dose 1 INH; Start 05/26/17 at 09:00 Atorvastatin Calcium (Lipitor) 20 mg HS PO Last administered on 06/08/17 21:28 ; Admin Dose 20 MG; Start 05/26/17 at 21:00 Promethazine HCl/ Codeine 5 ml 5 ml Q4H PRN PO COUGH Last administered on 19:47; Admin Dose 5 ML; Start 05/26/17 at 19:00 Sodium Chloride (1/2 NS) 1,000 ml @ 100 mls/hr Q10H IV Last administered on 09:02; Admin Dose 100 MLS/HR; Start 05/27/17 at 10:00 Eye Lubricant (Artificial Tears Oph) 2 drop BID PRN BOTH EYES DRY EYES Last administered on 06/07/17 02:31; Admin Dose 2 DROP; Start 05/30/17 at 16:00 Bisacodyl (Dulcolax) 10 mg DAILY PRN PO CONSTIPATION Last administered on 11:23; Admin Dose 10 MG; Start 06/04/17 at 11:00 Indomethacin (Indocin) 25 mg QID PO Last administered on 06/09/17 09:02; Admin Dose 25 MG; Start 06/05/17 at 17:00 Al Hydrox/Mg Hydrox/Simethicone (Mag-Al Plus) 30 ml Q6H PRN PO GASTROINTESTINAL UPSET Last administered on 06/07/17 12:51; Admin Dose 30 ML; Start 06/06/17 at 17:30 Zolpidem Tartrate (Ambien) 10 mg HS PRN PO INSOMNIA Last administered on 23:37; Admin Dose 10 MG; Start 06/07/17 at 22:30 Methylprednisolone Sodium Succinate (Solu-Medrol) 30 mg DAILY IV ; Start at 09:00 NERISSA PARK Jun 09, 2017 11:07
--- NOTE | 2017-06-09 11:08 | PN ---
Date/Time of Note Date/Time of Note DATE: 06/09/17 TIME: 11:07 Assessment/Plan VTE Prophylaxis VTE Prophylaxis Intervention: ambulation Lines/Catheters IV Catheter Type (from Nrs): Peripheral IV Urinary Cath still in place: No Assessment/Plan Chief Complaint/Hosp Course Assessment and plan 1. Chronic cough. Patient with CT scan of the chest showing extensive lymphadenopathy throughout the mediastinum and buzz consistent with suspect neoplasm. Patient without for underlying tuberculosis. ID and thoracic surgeon following. Of note patient is status post mediastinoscopy with biopsy done on June 01, 2017. Pathology unclear at this time. Sample sent to [facility] for further review. Still awaiting biopsy results 2. Dyslipidemia. Continue on statin 3. History of nicotine use. Placed on nicotine patch Disposition plan: We will taper steroids. Awaiting biopsy results still. Continue with category consultant recommendations. Discussed plan of care with Dr. Humphreys Problems: Subjective 24 Hr Interval Summary Free Text/Dictation Reports chest pain intermittently 3 out of 10 nonradiating intensity. No shortness of breath associated. No reports of cough. Exam/Review of Systems Vital Signs Vitals Vital Signs Date Time Temp Pulse Resp B/P Pulse Ox O2 Delivery O2 Flow Rate FiO2 06/09/17 07:47 97.8 96 18 124/75 97 06/08/17 15:38 Room Air Intake and Output 06/08/17 06/08/17 06/09/17 15:00 23:00 07:00 Intake Total 300 ml 2500 ml 800 ml Output Total 1600 ml Balance 300 ml 2500 ml -800 ml Exam Constitutional: alert, oriented Psych: nl mood/affect Respiratory: normal air movement Cardiovascular: regular rate and rhythm Gastrointestinal: non-tender, soft Musculoskeletal: nl extremities to inspection, nl gait and stance Neurological: DATA ENTRY EMAIL PROCESSOR II-XII intact, nl mental status Results Result Diagram: 06/08/17 1039 06/08/17 1039 Medications Medications Current Medications Nicotine (Nicoderm 21 Mg/ 24hr) 1 patch DAILY TRANSDERM ; Start 05/26/17 at 09: 00 Ondansetron HCl (Zofran Inj) 4 mg Q6H PRN IV NAUSEA AND/OR VOMITING Last administered on 06/01/17 22:10; Admin Dose 4 MG; Start 05/25/17 at 21:00 Famotidine (Pepcid) 20 mg BID PO Last administered on 06/09/17 09:02; Admin Dose 20 MG; Start 05/26/17 at 09:00 Salmeterol Xinafoate/ Fluticasone (Advair 250/50 Diskus) 1 inh BID INH Last administered on 06/09/17 09:02; Admin Dose 1 INH; Start 05/26/17 at 09:00 Atorvastatin Calcium (Lipitor) 20 mg HS PO Last administered on 06/08/17 21:28 ; Admin Dose 20 MG; Start 05/26/17 at 21:00 Promethazine HCl/ Codeine 5 ml 5 ml Q4H PRN PO COUGH Last administered on 19:47; Admin Dose 5 ML; Start 05/26/17 at 19:00 Sodium Chloride (1/2 NS) 1,000 ml @ 100 mls/hr Q10H IV Last administered on 09:02; Admin Dose 100 MLS/HR; Start 05/27/17 at 10:00 Eye Lubricant (Artificial Tears Oph) 2 drop BID PRN BOTH EYES DRY EYES Last administered on 06/07/17 02:31; Admin Dose 2 DROP; Start 05/30/17 at 16:00 Bisacodyl (Dulcolax) 10 mg DAILY PRN PO CONSTIPATION Last administered on 11:23; Admin Dose 10 MG; Start 06/04/17 at 11:00 Indomethacin (Indocin) 25 mg QID PO Last administered on 06/09/17 09:02; Admin Dose 25 MG; Start 06/05/17 at 17:00 Al Hydrox/Mg Hydrox/Simethicone (Mag-Al Plus) 30 ml Q6H PRN PO GASTROINTESTINAL UPSET Last administered on 06/07/17 12:51; Admin Dose 30 ML; Start 06/06/17 at 17:30 Zolpidem Tartrate (Ambien) 10 mg HS PRN PO INSOMNIA Last administered on 23:37; Admin Dose 10 MG; Start 06/07/17 at 22:30 Methylprednisolone Sodium Succinate (Solu-Medrol) 30 mg DAILY IV ; Start at 09:00 NERISSA PARK Jun 09, 2017 11:08
[2017-06-09 14:22] VITALS: BP 120/76; RESP 18
[2017-06-09] MEDS: AL HYDROX/MG HYDROX/SIMETH 30 ML CUP PO PRN (17:31)
--- NOTE | 2017-06-09 18:49 | PN ---
Date/Time of Note Date/Time of Note DATE: 06/09/17 TIME: 18:49 Assessment/Plan Lines/Catheters IV Catheter Type (from [facility]): Peripheral IV [place] in Place (from [facility]): No Assessment/Plan Chief Complaint/Hosp Course Mediastinal adenopathy Pathology preliminary report A, B-Anterior mediastinal mass, mediastinoscopic biopsies: -- Spindle cell lesion with sclerosis, and patchy lymphocytic cell infiltrate ( please see comment). -- AFB and GMS stains with appropriate controls (B1) show no identifiable pathogenic organisms. C-Mediastinal fat, biopsy: -- Adipose tissue with no significant histopathological features. Status post mediastinoscopy and biopsy Awaiting full biopsy results Discussed with the patient Problems: Subjective 24 Hr Interval Summary Constitutional: improved Pain Control: mild Exam/Review of Systems Vital Signs Vitals Vital Signs Date Time Temp Pulse Resp B/P Pulse Ox O2 Delivery O2 Flow Rate FiO2 06/09/17 14:22 98.5 102 18 120/76 96 06/08/17 15:38 Room Air Intake and Output 06/08/17 06/08/17 06/09/17 15:00 23:00 07:00 Intake Total 300 ml 2500 ml 800 ml Output Total 1600 ml Balance 300 ml 2500 ml -800 ml Exam ENMT: mucosa pink and moist, nl external ears & nose, nl lips & teeth, nl nasal mucosa & septum Neck: non-tender, supple Respiratory: clear to auscultation, normal air movement Cardiovascular: nl pulses, regular rate and rhythm Gastrointestinal: nl liver, spleen, non-tender, soft Results Result Diagram: 06/08/17 1039 06/08/17 1039 MELISSA JJ MD Jun 09, 2017 18:49
[2017-06-09 19:39] VITALS: BP 122/82; RESP 20
[2017-06-09] MEDS: ZOLPIDEM 5 MG TAB PO PRN (20:50)
[2017-06-09] MEDS: ATORVASTATIN 20 MG TAB PO SCH (20:50)
[2017-06-10] MEDS: SOD CHLORIDE 0.45% 1,000 ML IV SCH ×2 (01:10→04:00)
[2017-06-10 01:44] VITALS: BP 116/70; RESP 20
[2017-06-10 07:29] VITALS: BP 125/80; RESP 20
[2017-06-10] MEDS ORDERED: METHYLPREDNISOLONE 125 MG INJ IV SCH (09:00)
[2017-06-10] MEDS: NICOTINE (21 MG/24 HR) PATCH TRANSDERM SCH (09:00)
[2017-06-10] MEDS: FAMOTIDINE 20 MG TAB PO SCH ×2 (09:02→21:17)
[2017-06-10] MEDS: INDOMETHACIN 25 MG PO SCH ×4 (09:02→21:17)
[2017-06-10] MEDS: METHYLPREDNISOLONE 40 MG INJ IV SCH (09:02)
[2017-06-10] MEDS: SALMETEROL/FLUTICASONE 250/50 INHA INH SCH ×2 (09:02→21:18)
--- NOTE | 2017-06-10 09:48 | CONS ---
Date/Time of Note Date/Time of Note DATE: 06/10/17 TIME: 09:44 Assessment/Plan Assessment/Plan Chief Complaint/Hosp Course assessment/impression - chronic cough of unclear etiology s/p mediastinoscopy with biopsy on 2016. Took empiric ceftriaxone and azithromycin 05/28/2017-06/02/2017 - extensive mediastinal and hilar lymphadenopathy with clear parenchyma. 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 - mild paronychia of toenail, resolved - so far: negative for urine legionella antigen, galactomannan in serum, 1,3- [id number], crypto antigen in serum, HIV, urine histo antigen, viruses ( influenza, parainfluenza, RSV, adenovirus), mycobacerium tuberculosis NAAT to Pt 's sputum sample from 05/29/2017, cocci serology, Bx (aerobic and anaerobic cultures, fungi, AFB smear), bordetella, histoplasma CF - leukocytosis, on steroid since 05/25/2017 - labile emotional state, may be due to steroid recommendations - histoplasma CF was negative according to Ani at send out lab. 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 and Ani at send out lab Problems: Consultation Date/Type/Reason Admit Date/Time May 25, 2017 at 19:30 Initial Consult Date 05/29/17 Type of Consultation: ID Referring Provider: JACKIE RUDOLPH 24 HR Interval Summary Constitutional: no complaints Detailed Summary Eyes: no complaints ENT: no complaints Respiratory: no complaints Cardiovascular: no complaints Gastrointestinal: no complaints Genitourinary: no complaints Musculoskeletal: no complaints Skin: no complaints Neurologic: no complaints Exam/Review of Systems Vital Signs Vitals Vital Signs Date Time Temp Pulse Resp B/P Pulse Ox O2 Delivery O2 Flow Rate FiO2 06/10/17 07:29 97.9 72 20 125/80 96 06/08/17 15:38 Room Air Intake and Output 06/09/17 06/09/17 06/10/17 15:00 23:00 07:00 Intake Total 1400 ml 1880 ml 1180 ml Output Total 700 ml Balance 1400 ml 1880 ml 480 ml Exam Constitutional: alert, well developed Psych: nl mood/affect, no complaints Head: atraumatic, normocephalic Eyes: nl conjunctiva, nl lids ENMT: nl external ears & nose, nl nasal mucosa & septum Neck: supple Respiratory: clear to auscultation, normal air movement Cardiovascular: nl pulses, regular rate and rhythm Musculoskeletal: nl extremities to inspection, nl gait and stance Extremities: normal pulses, No edema 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 intact Results Result Diagram: 06/08/17 1039 06/08/17 1039 Medications Medications Current Medications Nicotine (Nicoderm 21 Mg/ 24hr) 1 patch DAILY TRANSDERM ; Start 05/26/17 at 09: 00 Ondansetron HCl (Zofran Inj) 4 mg Q6H PRN IV NAUSEA AND/OR VOMITING Last administered on 06/01/17 22:10; Admin Dose 4 MG; Start 05/25/17 at 21:00 Famotidine (Pepcid) 20 mg BID PO Last administered on 06/10/17 09:02; Admin Dose 20 MG; Start 05/26/17 at 09:00 Salmeterol Xinafoate/ Fluticasone (Advair 250/50 Diskus) 1 inh BID INH Last administered on 06/10/17 09:02; Admin Dose 1 INH; Start 05/26/17 at 09:00 Atorvastatin Calcium (Lipitor) 20 mg HS PO Last administered on 06/09/17 20:50 ; Admin Dose 20 MG; Start 05/26/17 at 21:00 Promethazine HCl/ Codeine 5 ml 5 ml Q4H PRN PO COUGH Last administered on 19:47; Admin Dose 5 ML; Start 05/26/17 at 19:00 Sodium Chloride (1/2 NS) 1,000 ml @ 100 mls/hr Q10H IV Last administered on 01:10; Admin Dose 100 MLS/HR; Start 05/27/17 at 10:00 Eye Lubricant (Artificial Tears Oph) 2 drop BID PRN BOTH EYES DRY EYES Last administered on 06/07/17 02:31; Admin Dose 2 DROP; Start 05/30/17 at 16:00 Bisacodyl (Dulcolax) 10 mg DAILY PRN PO CONSTIPATION Last administered on 11:23; Admin Dose 10 MG; Start 06/04/17 at 11:00 Indomethacin (Indocin) 25 mg QID PO Last administered on 06/10/17 09:02; Admin Dose 25 MG; Start 06/05/17 at 17:00 Al Hydrox/Mg Hydrox/Simethicone (Mag-Al Plus) 30 ml Q6H PRN PO GASTROINTESTINAL UPSET Last administered on 06/09/17 17:31; Admin Dose 30 ML; Start 06/06/17 at 17:30 Zolpidem Tartrate (Ambien) 10 mg HS PRN PO INSOMNIA Last administered on 20:50; Admin Dose 10 MG; Start 06/07/17 at 22:30 Methylprednisolone Sodium Succinate (Solu-Medrol) 30 mg DAILY IV Last administered on 06/10/17 09:02; Admin Dose 30 MG; Start 06/10/17 at 09:00 LAVERNE WOOTEN M.D. Jun 10, 2017 09:48
--- NOTE | 2017-06-10 10:58 | CONS ---
Date/Time of Note Date/Time of Note DATE: 06/10/17 TIME: 10:51 Assessment/Plan Assessment/Plan Chief Complaint/Hosp Course extensive mediastinal and hilar lymphadenopathy with clear parenchyma. 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 Without any acute alveolar infiltrates being seen. CT ABD - Borderline enlarged upper para-aortic lymph nodes. BX - A, B-Anterior mediastinal mass, mediastinoscopic biopsies: -- Spindle cell lesion with sclerosis, and patchy lymphocytic cell infiltrate ( please see comment). -- AFB and GMS stains with appropriate controls (B1) show no identifiable pathogenic organisms. C-Mediastinal fat, biopsy: -- Adipose tissue with no significant histopathological features. COMMENT: It is difficult to classify this lesion. However, a sclerosing thymoma, sclerosing mediastinitis and solitary fibrous tumor are in the differential diagnosis. However, negative Hunt-cytokeratin mitigates against sclerosing thymoma, due to absence of thymic epithelial cells; and negative 34 mitigates against solitary fibrous tumor. If the mass is well circumscribed, a sclerosing mediastinitis would be unlikely. Therefore, the classification of this mass would be difficult based on the results of the immunohistochemical stains. This case will be sent in consultation to Dr. José Duron of [facility] and a final report will follow. R/O UNDERLYING NEOPLASIA AWAIT FINAL PATH CHECK LDH, ESR - chronic cough of unclear etiology s/p mediastinoscopy with biopsy on 2016. Took empiric ceftriaxone and azithromycin 05/28/2017-06/02/2017 - Pt has had extensive occupational exposure. 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 - mild paronychia of toenail, resolved - so far: negative for urine legionella antigen, galactomannan in serum, 1,3- lbtr-R-cyikuh, crypto antigen in serum, HIV, urine histo antigen, viruses ( influenza, parainfluenza, RSV, adenovirus), mycobacerium tuberculosis NAAT to Pt 's sputum sample from 05/29/2017, cocci serology, Bx (aerobic and anaerobic cultures, fungi, AFB smear), bordetella, histoplasma CF - leukocytosis, on steroid since 05/25/2017 - labile emotional state, may be due to steroid Problems: Consultation Date/Type/Reason Admit Date/Time May 25, 2017 at 19:30 Date of Consultation: Jun 10, 2017 Type of Consultation: HEMEON Reason for Consultation R/O FRED Referring Provider: NERISSA PARK Hx of Present Illness patient is a very pleasant 57-year-old male who was admitted day before yesterday with complaints of chronic cough dating back several months to almost a year associated with shortness of breath and wheezing. The patient has been evaluated by various physicians over the last several months without any diagnosis being made. The patient does complain of low-grade fever off and on has lost 4 pounds over the last several months. Denies any chest pain, denies any sputum production or hemoptysis. Upon evaluation he had a CT scan of chest was done which is showing extensive mediastinal and hilar lymphadenopathy. Without any acute alveolar infiltrates being seen. BX - A, B-Anterior mediastinal mass, mediastinoscopic biopsies: -- Spindle cell lesion with sclerosis, and patchy lymphocytic cell infiltrate ( please see comment). -- AFB and GMS stains with appropriate controls (B1) show no identifiable pathogenic organisms. C-Mediastinal fat, biopsy: -- Adipose tissue with no significant histopathological features. COMMENT: It is difficult to classify this lesion. However, a sclerosing thymoma, sclerosing mediastinitis and solitary fibrous tumor are in the differential diagnosis. However, negative Hunt-cytokeratin mitigates against sclerosing thymoma, due to absence of thymic epithelial cells; and negative 34 mitigates against solitary fibrous tumor. If the mass is well circumscribed, a sclerosing mediastinitis would be unlikely. Therefore, the classification of this mass would be difficult based on the results of the immunohistochemical stains. This case will be sent in consultation to Dr. José Duron of [facility] and a final report will follow. I WAS ASKED TO PROVIDE [facility] CONSULT Past medical history; history of inguinal hernia. No show any other medical illnesses. The patient apparently has had some kind of eye surgery performed in the past. Medications; reviewed. Allergies; none. Social history; patient quit smoking about more than a year ago. Most of alcohol or drug abuse. Family history; patient is , malignancy runs strongly in the family, his brother of stomach cancer, mother also had had some kind of malignancy. 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 Review of systems; denies any headache, visual changes, seizures, dysphagia, chest pain, angina, complaint of chronic wheezing. Complains of dyspnea on exertion. Complains of chronic cough. Has lost minimal weight. Denies any edema. Any urinary symptoms. Denies any GI symptoms. Denies any arthritis or any skin changes. General exam; middle-aged male, awake alert currently in no distress. Social History Smoking Status: Former smoker Constitutional: no complaints Eyes: no complaints ENT: no complaints Respiratory: no complaints Cardiovascular: no complaints Gastrointestinal: no complaints Genitourinary: no complaints Musculoskeletal: no complaints Skin: no complaints Neurologic: no complaints Endocrine: no complaints Lymphatic: no complaints Psychological: nl mood/affect, no complaints Immunologic: no complaints Past Medical History Medical History: no pertinent history, hypertension, other (hyperlipidemia) Social History Alcohol Use: none Smoking Status: Former smoker Drug Use: none Exam/Review of Systems Vital Signs Vitals Vital Signs Date Time Temp Pulse Resp B/P Pulse Ox O2 Delivery O2 Flow Rate FiO2 06/10/17 07:29 97.9 72 20 125/80 96 06/08/17 15:38 Room Air Intake and Output 06/09/17 06/09/17 06/10/17 15:00 23:00 07:00 Intake Total 1400 ml 1880 ml 1180 ml Output Total 700 ml Balance 1400 ml 1880 ml 480 ml Exam Exam HEENT exam; supple neck, no JVD. No lymphadenopathy. Midline trachea. No thyromegaly. No neck masses. Patient has fair dentition. There is no cervical lymphadenopathy. Pupils are midsize and reactive to light bilaterally. Chest exam; bilateral wheezing. S1-S2 audible, no murmurs. Regular rhythm. Abdomen exam; soft, nontender. No organomegaly. Bowel sounds audible. Extremity exam; no peripheral edema. No clubbing. Pulses 2+ bilaterally. VOLTAGE TESTER exam; no focal deficit. Results Result Diagram: 06/08/17 1039 06/08/17 1039 Results 24 hrs Laboratory Tests Test 06/10/17 09:45 Lab Scanned Report REFERENCE LAB Medications Medications Current Medications Nicotine (Nicoderm 21 Mg/ 24hr) 1 patch DAILY TRANSDERM ; Start 05/26/17 at 09: 00 Ondansetron HCl (Zofran Inj) 4 mg Q6H PRN IV NAUSEA AND/OR VOMITING Last administered on 06/01/17 22:10; Admin Dose 4 MG; Start 05/25/17 at 21:00 Famotidine (Pepcid) 20 mg BID PO Last administered on 06/10/17 09:02; Admin Dose 20 MG; Start 05/26/17 at 09:00 Salmeterol Xinafoate/ Fluticasone (Advair 250/50 Diskus) 1 inh BID INH Last administered on 06/10/17 09:02; Admin Dose 1 INH; Start 05/26/17 at 09:00 Atorvastatin Calcium (Lipitor) 20 mg HS PO Last administered on 06/09/17 20:50 ; Admin Dose 20 MG; Start 05/26/17 at 21:00 Promethazine HCl/ Codeine (Phenergan/ Codeine) 5 ml Q4H PRN PO COUGH Last administered on 05/26/17 19:47; Admin Dose 5 ML; Start 05/26/17 at 19:00 Eye Lubricant (Artificial Tears Oph) 2 drop BID PRN BOTH EYES DRY EYES Last administered on 06/07/17 02:31; Admin Dose 2 DROP; Start 05/30/17 at 16:00 Bisacodyl (Dulcolax) 10 mg DAILY PRN PO CONSTIPATION Last administered on 11:23; Admin Dose 10 MG; Start 06/04/17 at 11:00 Indomethacin (Indocin) 25 mg QID PO Last administered on 06/10/17 09:02; Admin Dose 25 MG; Start 06/05/17 at 17:00 Al Hydrox/Mg Hydrox/Simethicone (Mag-Al Plus) 30 ml Q6H PRN PO GASTROINTESTINAL UPSET Last administered on 06/09/17 17:31; Admin Dose 30 ML; Start 06/06/17 at 17:30 Zolpidem Tartrate (Ambien) 10 mg HS PRN PO INSOMNIA Last administered on 20:50; Admin Dose 10 MG; Start 06/07/17 at 22:30 Methylprednisolone Sodium Succinate (Solu-Medrol) 30 mg DAILY IV Last administered on 06/10/17 09:02; Admin Dose 30 MG; Start 06/10/17 at 09:00 Procedures Procedures [place] [address] Radiology Main Line: [phone] DIAGNOSTIC IMAGING REPORT Patient: NEISHA MANSFIELD : 1960 Age: 57 Sex: M [facility] #: [id number] [id number] DOS: 05/27/17 0000 Ordering MD: JACKIE RUODLPH Location[place] [facility] [place] Room/Bed: 618-A PROCEDURE: CT abdomen and pelvis with contrast. CLINICAL INDICATION: Evaluate for malignancy. No history of hemoptysis. TECHNIQUE: CT of the abdomen/pelvis was performed utilizing axial images with reconstructions in sagittal and coronal planes following the intravenous administration of 100 cc Omnipaque-300 contrast. The administered radiation dose is CTDI 10.33 mGy, DLP 658.07 mGy-cm. One or more of the following dose reduction techniques were used: Automated exposure control, Adjustment of the mA and/or kV according to patient size, or Use of iterative reconstruction technique. COMPARISON: CT chest 05/26/2017 FINDINGS: Lung bases: Right infrahilar lymphadenopathy is partially imaged within the lower thorax, better demonstrated on comparison CT chest. The heart is normal size without pericardial effusion. There is bilateral posterior dependent atelectasis. CT ABDOMEN: Gastrointestinal tract: There is no bowel obstruction.No abnormal colonic wall thickening is identified.There is no pneumoperitoneum. A normal-appearing appendix is seen in the right lower quadrant. There are a few scattered colonic diverticuli without evidence of acute diverticulitis. Liver: The liver is normal in size without focal lesion.There is no intrahepatic ductal dilatation. Gallbladder: The gallbladder is collapsed. Pancreas: The pancreas is grossly unremarkable. Spleen: The spleen is normal in size without focal lesion. Kidneys: The kidneys are normal in size and contour. A 3-4 mm stone is seen in the interpolar left kidney. Punctate calculi are seen in the interpolar right kidney. Extrarenal pelvis or parapelvic cyst is seen on the left. No hydronephrosis is seen. Adrenal glands: The bilateral adrenal glands are unremarkable. Retroperitoneum: A few borderline enlarged periaortic lymph nodes are noted. The aorta is normal in caliber. CT PELVIS: Pelvic organs: The prostate gland is mildly enlarged and contains coarse calcifications. Bladder: The bladder is unremarkable. There is no pelvic free fluid.No pelvic adenopathy is identified. Osseous structures: No destructive lytic or blastic osseous lesion is identified. IMPRESSION: 1. Right perihilar hilar lymphadenopathy is partially imaged and better demonstrated on prior CT chest of 05/26/2017. 2. Bilateral nephrolithiasis without evidence of hydronephrosis. 3. Borderline enlarged upper para-aortic lymph nodes. 4. Colonic diverticulosis without evidence of acute diverticulitis. RPTAT: PP Physician Arleen Date Time Electronically viewed and signed by Nela Rebolledo Physician on 05/27/2017 15: 11 RC/ CC: [facility] non-profit non-[address] [address] ; Lab No: [id number] P Date: 06/01/2017 PRELIMINARY REPORT SPECIMEN: A-Anterior mediastinal mass B-Anterior mediastinal mass C-Fat, mediastinal This preliminary microscopic diagnosis is based upon material currently available for examination. Final Pathological diagnosis is pending completion of one or more of the following studies: ( ) Special stains ( ) Immunoperoxidase stains pending ( X ) Slides consultation to José Duron M.D. of [facility] ( ) Examination of additional sections in processing MICROSCOPIC DESCRIPTION: A, B-Sections reveal a hypocellular spindle cell lesion with interspersed sclerosing collagenous stroma, and some areas of lymphoid aggregates composed of small round lymphocytes with anthracotic pigments. Some scattered clusters of epithelioid cells containing round nuclei and moderate amount of pale eosinophilic cytoplasm are seen. Rare multinucleated giant cells containing small clear vacuoles are noted. No granulomatous formation, necrosis or calcification is seen. No cellular atypia is identified. The lesion is surrounded by a thin , fibrous, connective tissue capsule and appears to be well-circumscribed. No atypical large lymphoid cell infiltrate or Frank-Abeba cells are noted. AFB and GMS stains with appropriate controls, performed on paraffin-embedded block (B1) show no identifiable pathogenic organisms. IMMUNOHISTOCHEMICAL STAINS: Immunohistochemical stains are performed on formalin-fixed, paraffin-embedded block (B2) containing sections of anterior mediastinal mass. Positive and negative controls, run in tandem, are stained appropriately. The results of the immunohistochemical stains are summarized below: Hunt-Cytokeratin: Negative. PAX8 (nuclear): Negative. CD34: Negative. CD20: B lymphocytes positive. CD3: T lymphocytes positive. CD5: B lymphocytes positive T lymphocytes:B lymphocytes: Approximately 10:1. CD138: A few scattered plasma cells positive. Ki67: Low proliferative index (less than 3%). PRELIMINARY MICROSCOPIC DIAGNOSIS: A, B-Anterior mediastinal mass, mediastinoscopic biopsies: -- Spindle cell lesion with sclerosis, and patchy lymphocytic cell infiltrate ( please see comment). -- AFB and GMS stains with appropriate controls (B1) show no identifiable pathogenic organisms. C-Mediastinal fat, biopsy: -- Adipose tissue with no significant histopathological features. COMMENT: It is difficult to classify this lesion. However, a sclerosing thymoma, sclerosing mediastinitis and solitary fibrous tumor are in the differential diagnosis. However, negative Hunt-cytokeratin mitigates against sclerosing thymoma, due to absence of thymic epithelial cells; and negative 34 mitigates against solitary fibrous tumor. If the mass is well circumscribed, a sclerosing mediastinitis would be unlikely. Therefore, the classification of this mass would be difficult based on the results of the immunohistochemical stains. This case will be sent in consultation to Dr. José Duron of [facility] and a final report will follow. A sample from the mediastinal mass was taken intraoperatively and sent to microbiology department of [facility] for routine culture and sensitivity, and AFB and fungal cultures. Results of the cultures will be sent in a separate report. Follow-up on culture reports is advised. This case was discussed with Dr. Rafaela Alvarez on 06/03/17. MP/WS/db/mb Date of Service: 06/01/17; Date Received: 06/01/17 Dictated: 06/04/17; Transcribed: 06/04/17; Sent by Fax: 06/04/17; Reviewed: CINTHIA JENSEN M.D. Pathologist Electronically Signed 06/04/2017 MARGARITA FLORES M.D. 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
--- NOTE | 2017-06-10 12:10 | CONS ---
Date/Time of Note Date/Time of Note DATE: 06/10/17 TIME: 12:07 Assessment/Plan Assessment/Plan Chief Complaint/Hosp Course Pleuritic chest pain etiology to be determined, workup in progress On nonsteroidal anti-inflammatory medications with pain control controlled We will continue with current nonsteroidals Indocin only with the precaution Await biopsy results second opinion Problems: Consultation Date/Type/Reason Admit Date/Time May 25, 2017 at 19:30 Initial Consult Date 06/04/17 Referring Provider: NERISSA PARK Exam/Review of Systems Vital Signs Vitals Vital Signs Date Time Temp Pulse Resp B/P Pulse Ox O2 Delivery O2 Flow Rate FiO2 06/10/17 07:29 97.9 72 20 125/80 96 06/08/17 15:38 Room Air Intake and Output 06/09/17 06/09/17 06/10/17 15:00 23:00 07:00 Intake Total 1400 ml 1880 ml 1180 ml Output Total 700 ml Balance 1400 ml 1880 ml 480 ml Exam Psych: anxiety Respiratory: clear to auscultation, normal air movement Cardiovascular: nl pulses, regular rate and rhythm Neurological: 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 intact, nl mental status, nl speech, nl strength Results Result Diagram: 06/08/17 1039 06/08/17 1039 Results 24 hrs Laboratory Tests Test 06/10/17 09:45 Lab Scanned Report REFERENCE LAB Medications Medications Current Medications Nicotine (Nicoderm 21 Mg/ 24hr) 1 patch DAILY TRANSDERM ; Start 05/26/17 at 09: 00 Ondansetron HCl (Zofran Inj) 4 mg Q6H PRN IV NAUSEA AND/OR VOMITING Last administered on 06/01/17 22:10; Admin Dose 4 MG; Start 05/25/17 at 21:00 Famotidine (Pepcid) 20 mg BID PO Last administered on 06/10/17 09:02; Admin Dose 20 MG; Start 05/26/17 at 09:00 Salmeterol Xinafoate/ Fluticasone (Advair 250/50 Diskus) 1 inh BID INH Last administered on 06/10/17 09:02; Admin Dose 1 INH; Start 05/26/17 at 09:00 Atorvastatin Calcium (Lipitor) 20 mg HS PO Last administered on 06/09/17 20:50 ; Admin Dose 20 MG; Start 05/26/17 at 21:00 Promethazine HCl/ Codeine (Phenergan/ Codeine) 5 ml Q4H PRN PO COUGH Last administered on 05/26/17 19:47; Admin Dose 5 ML; Start 05/26/17 at 19:00 Eye Lubricant (Artificial Tears Oph) 2 drop BID PRN BOTH EYES DRY EYES Last administered on 06/07/17 02:31; Admin Dose 2 DROP; Start 05/30/17 at 16:00 Bisacodyl (Dulcolax) 10 mg DAILY PRN PO CONSTIPATION Last administered on 11:23; Admin Dose 10 MG; Start 06/04/17 at 11:00 Indomethacin (Indocin) 25 mg QID PO Last administered on 06/10/17 09:02; Admin Dose 25 MG; Start 06/05/17 at 17:00 Al Hydrox/Mg Hydrox/Simethicone (Mag-Al Plus) 30 ml Q6H PRN PO GASTROINTESTINAL UPSET Last administered on 06/09/17 17:31; Admin Dose 30 ML; Start 06/06/17 at 17:30 Zolpidem Tartrate (Ambien) 10 mg HS PRN PO INSOMNIA Last administered on 20:50; Admin Dose 10 MG; Start 06/07/17 at 22:30 Methylprednisolone Sodium Succinate (Solu-Medrol) 30 mg DAILY IV Last administered on 06/10/17 09:02; Admin Dose 30 MG; Start 06/10/17 at 09:00 SPARKLE AMOS Jun 10, 2017 12:10
[2017-06-10 13:50] VITALS: BP 115/62; RESP 20
--- NOTE | 2017-06-10 14:31 | PN ---
Date/Time of Note Date/Time of Note DATE: 06/10/17 TIME: 14:28 Assessment/Plan VTE Prophylaxis VTE Prophylaxis Intervention: ambulation, SCD's Lines/Catheters IV Catheter Type (from [facility]): Saline Lock Urinary Cath still in place: No Assessment/Plan Chief Complaint/Hosp Course Assessment and plan 1. Chronic cough. Patient with CT scan of the chest showing extensive lymphadenopathy throughout the mediastinum and buzz consistent with suspect neoplasm. Patient without for underlying tuberculosis. ID and thoracic surgeon following. Of note patient is status post mediastinoscopy with biopsy done on June 01, 2017. Pathology unclear at this time. Patient biopsy did come back from [facility] showing findings with suggestive sclerosing mediastinitis. Patient was ruled out for H. capsulatum and TB and funcal process. Findings were possible suggestive of a possibility of Hodgkin's lymphoma. I did consult oncologist today. Continue the recommendations. 2. Dyslipidemia. Continue on statin 3. History of nicotine use. Placed on nicotine patch Disposition plan: Follow-up with recommendations of oncologist. Discharge when medically stable and cleared by consultants Discussed plan of care with Dr. Humphreys Problems: Exam/Review of Systems Vital Signs Vitals Vital Signs Date Time Temp Pulse Resp B/P Pulse Ox O2 Delivery O2 Flow Rate FiO2 06/10/17 13:50 97.7 98 20 115/62 94 06/08/17 15:38 Room Air Intake and Output 06/09/17 06/09/17 06/10/17 15:00 23:00 07:00 Intake Total 1400 ml 1880 ml 1180 ml Output Total 700 ml Balance 1400 ml 1880 ml 480 ml Results Result Diagram: 06/08/17 1039 06/08/17 1039 Results 24 hrs Laboratory Tests Test 06/10/17 09:45 06/10/17 11:48 Lab Scanned Report REFERENCE LAB Erythrocyte Sedimentation Rate 1 Lactate Dehydrogenase 432 Medications Medications Current Medications Nicotine (Nicoderm 21 Mg/ 24hr) 1 patch DAILY TRANSDERM ; Start 05/26/17 at 09: 00 Ondansetron HCl (Zofran Inj) 4 mg Q6H PRN IV NAUSEA AND/OR VOMITING Last administered on 06/01/17 22:10; Admin Dose 4 MG; Start 05/25/17 at 21:00 Famotidine (Pepcid) 20 mg BID PO Last administered on 06/10/17 09:02; Admin Dose 20 MG; Start 05/26/17 at 09:00 Salmeterol Xinafoate/ Fluticasone (Advair 250/50 Diskus) 1 inh BID INH Last administered on 06/10/17 09:02; Admin Dose 1 INH; Start 05/26/17 at 09:00 Atorvastatin Calcium (Lipitor) 20 mg HS PO Last administered on 06/09/17 20:50 ; Admin Dose 20 MG; Start 05/26/17 at 21:00 Promethazine HCl/ Codeine (Phenergan/ Codeine) 5 ml Q4H PRN PO COUGH Last administered on 05/26/17 19:47; Admin Dose 5 ML; Start 05/26/17 at 19:00 Eye Lubricant (Artificial Tears Oph) 2 drop BID PRN BOTH EYES DRY EYES Last administered on 06/07/17 02:31; Admin Dose 2 DROP; Start 05/30/17 at 16:00 Bisacodyl (Dulcolax) 10 mg DAILY PRN PO CONSTIPATION Last administered on 11:23; Admin Dose 10 MG; Start 06/04/17 at 11:00 Indomethacin (Indocin) 25 mg QID PO Last administered on 06/10/17 12:51; Admin Dose 25 MG; Start 06/05/17 at 17:00 Al Hydrox/Mg Hydrox/Simethicone (Mag-Al Plus) 30 ml Q6H PRN PO GASTROINTESTINAL UPSET Last administered on 06/09/17 17:31; Admin Dose 30 ML; Start 06/06/17 at 17:30 Zolpidem Tartrate (Ambien) 10 mg HS PRN PO INSOMNIA Last administered on 20:50; Admin Dose 10 MG; Start 06/07/17 at 22:30 Methylprednisolone Sodium Succinate (Solu-Medrol) 30 mg DAILY IV Last administered on 06/10/17 09:02; Admin Dose 30 MG; Start 06/10/17 at 09:00 NERISSA PARK Jun 10, 2017 14:31
--- NOTE | 2017-06-10 19:18 | PN ---
Date/Time of Note Date/Time of Note DATE: 06/10/17 TIME: 19:17 Assessment/Plan Lines/Catheters IV Catheter Type (from Nrs): Saline Lock [place] in Place (from Nrs): No Assessment/Plan Chief Complaint/Hosp Course Mediastinal adenopathy path sclerosing mediastinitis Status post mediastinoscopy and biopsy Awaiting full biopsy results Discussed with the patient Problems: Subjective 24 Hr Interval Summary Constitutional: improved Pain Control: mild Exam/Review of Systems Vital Signs Vitals Vital Signs Date Time Temp Pulse Resp B/P Pulse Ox O2 Delivery O2 Flow Rate FiO2 06/10/17 13:50 97.7 98 20 115/62 94 06/08/17 15:38 Room Air Intake and Output 06/09/17 06/09/17 06/10/17 15:00 23:00 07:00 Intake Total 1400 ml 1880 ml 1180 ml Output Total 700 ml Balance 1400 ml 1880 ml 480 ml Exam Neck: non-tender, supple Respiratory: clear to auscultation, normal air movement Cardiovascular: nl pulses, regular rate and rhythm Results Result Diagram: 06/08/17 1039 06/08/17 1039 MELISSA JJ MD Jun 10, 2017 19:18
[2017-06-10 19:45] VITALS: BP 121/70; RESP 20
[2017-06-10] MEDS: ATORVASTATIN 20 MG TAB PO SCH (21:17)
[2017-06-10] MEDS: ZOLPIDEM 5 MG TAB PO PRN (21:18)
[2017-06-11 02:05] VITALS: BP 108/65; RESP 20
[2017-06-11 08:13] VITALS: BP 118/69; RESP 20
[2017-06-11] MEDS: INDOMETHACIN 25 MG PO SCH ×3 (08:14→16:49)
[2017-06-11] MEDS: METHYLPREDNISOLONE 40 MG INJ IV SCH (08:14)
[2017-06-11] MEDS: FAMOTIDINE 20 MG TAB PO SCH (08:14)
[2017-06-11] MEDS: SALMETEROL/FLUTICASONE 250/50 INHA INH SCH (08:15)
[2017-06-11] MEDS: NICOTINE (21 MG/24 HR) PATCH TRANSDERM SCH (08:15)
[2017-06-11] MEDS ORDERED: ALBU18HF INHALATION (10:08)
[2017-06-11] MEDS ORDERED: ADV25050 INH (10:08)
[2017-06-11] MEDS ORDERED: INDOS PO (10:08)
[2017-06-11] MEDS ORDERED: MED4DP PO (10:08)
[2017-06-11] MEDS ORDERED: ATOR20TA65 PO (10:08)
--- NOTE | 2017-06-11 10:32 | PDOCDIS ---
Discharge Instructions DIAGNOSIS Discharge Diagnosis 1. 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 Dyslipidemia 3. History of nicotine use CONDITION Patient Condition: Stable HOME CARE INSTRUCTIONS: Special Diet: Regular Diet FOLLOW UP/APPOINTMENTS Follow-up Plan 1. Follow-up with oncologist within a week 2. Follow-up with your primary physician within a week NERISSA PARK Jun 11, 2017 10:32
[2017-06-11] MEDS ORDERED: PANT40TA3 PO (10:33)
[2017-06-11] MEDS ORDERED: morphine 4 MG/ML VIAL IV PRN (11:42)
--- NOTE | 2017-06-11 11:54 | CONS ---
Date/Time of Note Date/Time of Note DATE: 06/11/17 TIME: 11:51 Assessment/Plan Assessment/Plan Chief Complaint/Hosp Course assessment/impression - chronic cough of unclear etiology s/p mediastinoscopy with biopsy on 2016. Took empiric ceftriaxone and azithromycin 05/28/2017-06/02/2017 - extensive mediastinal and hilar lymphadenopathy with clear parenchyma. 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 - mild paronychia of toenail, resolved - so far: negative for urine legionella antigen, galactomannan in serum, 1,3- [id number], crypto antigen in serum, HIV, urine histo antigen and histoplasma CF, viruses (influenza, parainfluenza, RSV, adenovirus), mycobacerium tuberculosis NAAT to Pt's sputum sample from 05/29/2017, cocci serology, Bx (aerobic and anaerobic cultures, fungi, AFB smear), bordetella - leukocytosis, on steroid since 05/25/2017 - labile emotional state according to Pt, may be due to steroid recommendations - continue to monitor Pt off systemic antibiotic - once Pt gets discharged, I recommend referral to an ID specialist who is contracted with his insurance to monitor the final results of his AFB and fungal cultures (incubated up to 6 weeks) management d/w Pt, 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 Problems: Consultation Date/Type/Reason Admit Date/Time May 25, 2017 at 19:30 Initial Consult Date 05/29/17 Type of Consultation: ID Referring Provider: NERISSA PARK 24 HR Interval Summary Constitutional: no complaints Detailed Summary Eyes: no complaints ENT: no complaints Respiratory: pain (anterior chest), No cough, No pleuritic pain, No shortness of breath, No sputum, No wheezing Cardiovascular: no complaints Gastrointestinal: no complaints Genitourinary: no complaints Musculoskeletal: other (anterior chest) Skin: no complaints Neurologic: no complaints Exam/Review of Systems Vital Signs Vitals Vital Signs Date Time Temp Pulse Resp B/P Pulse Ox O2 Delivery O2 Flow Rate FiO2 06/11/17 08:13 98.3 88 20 118/69 96 06/08/17 15:38 Room Air Intake and Output 06/10/17 06/10/17 06/11/17 15:00 23:00 07:00 Intake Total 300 ml 960 ml 480 ml Output Total 400 ml Balance 300 ml 960 ml 80 ml Exam Constitutional: alert, oriented, well developed Psych: nl mood/affect, no complaints Head: atraumatic, normocephalic Eyes: nl conjunctiva, nl lids ENMT: nl external ears & nose, nl nasal mucosa & septum Neck: non-tender, supple Respiratory: clear to auscultation, normal air movement Cardiovascular: nl pulses, regular rate and rhythm Musculoskeletal: nl extremities to inspection, nl gait and stance Neurological: DIESEL LOCOMOTIVE FIRER/FIREMAN II-XII intact, nl mental status Results Result Diagram: 06/08/17 1039 06/08/17 1039 Medications Medications Current Medications Nicotine (Nicoderm 21 Mg/ 24hr) 1 patch DAILY TRANSDERM ; Start 05/26/17 at 09: 00 Ondansetron HCl (Zofran Inj) 4 mg Q6H PRN IV NAUSEA AND/OR VOMITING Last administered on 06/01/17 22:10; Admin Dose 4 MG; Start 05/25/17 at 21:00 Famotidine (Pepcid) 20 mg BID PO Last administered on 06/11/17 08:14; Admin Dose 20 MG; Start 05/26/17 at 09:00 Salmeterol Xinafoate/ Fluticasone (Advair 250/50 Diskus) 1 inh BID INH Last administered on 06/11/17 08:15; Admin Dose 1 INH; Start 05/26/17 at 09:00 Atorvastatin Calcium (Lipitor) 20 mg HS PO Last administered on 06/10/17 21:17 ; Admin Dose 20 MG; Start 05/26/17 at 21:00 Promethazine HCl/ Codeine (Phenergan/ Codeine) 5 ml Q4H PRN PO COUGH Last administered on 05/26/17 19:47; Admin Dose 5 ML; Start 05/26/17 at 19:00 Eye Lubricant (Artificial Tears Oph) 2 drop BID PRN BOTH EYES DRY EYES Last administered on 06/07/17 02:31; Admin Dose 2 DROP; Start 05/30/17 at 16:00 Bisacodyl (Dulcolax) 10 mg DAILY PRN PO CONSTIPATION Last administered on 11:23; Admin Dose 10 MG; Start 06/04/17 at 11:00 Indomethacin (Indocin) 25 mg QID PO Last administered on 06/11/17 08:14; Admin Dose 25 MG; Start 06/05/17 at 17:00 Al Hydrox/Mg Hydrox/Simethicone (Mag-Al Plus) 30 ml Q6H PRN PO GASTROINTESTINAL UPSET Last administered on 06/09/17 17:31; Admin Dose 30 ML; Start 06/06/17 at 17:30 Zolpidem Tartrate (Ambien) 10 mg HS PRN PO INSOMNIA Last administered on 21:18; Admin Dose 10 MG; Start 06/07/17 at 22:30 Methylprednisolone Sodium Succinate (Solu-Medrol) 30 mg DAILY IV Last administered on 06/11/17 08:14; Admin Dose 30 MG; Start 06/10/17 at 09:00 Morphine Sulfate (morphine) 1 mg Q4H PRN IV FOR PAIN Last administered on 11:46; Admin Dose 1 MG; Start 06/11/17 at 11:42 LAVERNE WOOTEN M.D. Jun 11, 2017 11:54
[2017-06-11] MEDS ORDERED: TRAM50TA2 PO (14:23)
--- NOTE | 2017-06-11 15:16 | PN ---
Date/Time of Note Date/Time of Note DATE: 06/11/17 TIME: 15:14 Assessment/Plan Lines/Catheters IV Catheter Type (from Nrs): Saline Lock [place] in Place (from Nrsg): No Assessment/Plan Chief Complaint/Hosp Course Mediastinal adenopathy path sclerosing mediastinitis Status post mediastinoscopy and biopsy Awaiting full biopsy results Discussed with the patient Problems: Subjective 24 Hr Interval Summary Constitutional: improved Pain Control: mild Exam/Review of Systems Vital Signs Vitals Vital Signs Date Time Temp Pulse Resp B/P Pulse Ox O2 Delivery O2 Flow Rate FiO2 06/11/17 08:13 98.3 88 20 118/69 96 06/08/17 15:38 Room Air Intake and Output 06/10/17 06/10/17 06/11/17 15:00 23:00 07:00 Intake Total 300 ml 960 ml 480 ml Output Total 400 ml Balance 300 ml 960 ml 80 ml Exam Eyes: EOMI, nl conjunctiva, nl lids, nl sclera ENMT: mucosa pink and moist, nl external ears & nose, nl lips & teeth, nl nasal mucosa & septum Neck: non-tender, supple Respiratory: clear to auscultation, normal air movement Cardiovascular: nl pulses, regular rate and rhythm Gastrointestinal: nl liver, spleen, non-tender, soft Results Result Diagram: 06/08/17 1039 06/08/17 1039 MELISSA JJ MD Jun 11, 2017 15:16
--- NOTE | 2017-06-11 15:39 | CONS ---
Date/Time of Note Date/Time of Note DATE: 06/11/17 TIME: 15:36 Assessment/Plan Assessment/Plan Chief Complaint/Hosp Course extensive mediastinal and hilar lymphadenopathy with clear parenchyma. 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 Without any acute alveolar infiltrates being seen. CT ABD - Borderline enlarged upper para-aortic lymph nodes. BX - A, B-Anterior mediastinal mass, mediastinoscopic biopsies: -- Spindle cell lesion with sclerosis, and patchy lymphocytic cell infiltrate ( please see comment). -- AFB and GMS stains with appropriate controls (B1) show no identifiable pathogenic organisms. C-Mediastinal fat, biopsy: -- Adipose tissue with no significant histopathological features. COMMENT: It is difficult to classify this lesion. However, a sclerosing thymoma, sclerosing mediastinitis and solitary fibrous tumor are in the differential diagnosis. However, negative Hunt-cytokeratin mitigates against sclerosing thymoma, due to absence of thymic epithelial cells; and negative 34 mitigates against solitary fibrous tumor. If the mass is well circumscribed, a sclerosing mediastinitis would be unlikely. Therefore, the classification of this mass would be difficult based on the results of the immunohistochemical stains. This case will be sent in consultation to Dr. José Duron of [facility] and a final report will follow. FINAL PATH - sclerosing mediastinitis COMMENT: Please see the attached consultative report from José Duron M.D, Department of Pathology and Laboratory Medicine, [facility] (Accession no. [id number]; 06/07/17). Dr. Duron feels that the findings are most suggestive of sclerosing mediastinitis; however, in a discussion with Dr. Duron, he cautions that the biopsies may not be entirely teleservices representative of the underlying pathologic process. He recommends correlation with clinical features and imaging studies to exclude the possibility of a neoplasm (e.g. Hodgkin lymphoma or other) being present adjacent to the biopsy area. If mediastinal lymphadenopathy persists or becomes worse, then submission of additional material for pathologic evaluation may be warranted as clinically indicated. LDH, ESR- n - chronic cough of unclear etiology s/p mediastinoscopy with biopsy on 2016. Took empiric ceftriaxone and azithromycin 05/28/2017-06/02/2017 - Pt has had extensive occupational exposure. 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 - mild paronychia of toenail, resolved - so far: negative for urine legionella antigen, galactomannan in serum, 1,3- [id number], crypto antigen in serum, HIV, urine histo antigen, viruses ( influenza, parainfluenza, RSV, adenovirus), mycobacerium tuberculosis NAAT to Pt 's sputum sample from 05/29/2017, cocci serology, Bx (aerobic and anaerobic cultures, fungi, AFB smear), bordetella, histoplasma CF - leukocytosis, on steroid since 05/25/2017 - labile emotional state, may be due to steroid ok to dc f-up with pcp Problems: Consultation Date/Type/Reason Admit Date/Time May 25, 2017 at 19:30 Initial Consult Date 06/10/17 [facility] Referring Provider: NERISSA PARK 24 HR Interval Summary Free Text/Dictation all noted Exam/Review of Systems Vital Signs Vitals Vital Signs Date Time Temp Pulse Resp B/P Pulse Ox O2 Delivery O2 Flow Rate FiO2 06/11/17 08:13 98.3 88 20 118/69 96 06/08/17 15:38 Room Air Intake and Output 06/10/17 06/10/17 06/11/17 14:59 22:59 06:59 Intake Total 300 ml 960 ml 480 ml Output Total 400 ml Balance 300 ml 960 ml 80 ml Exam HEENT exam; supple neck, no JVD. No lymphadenopathy. Midline trachea. No thyromegaly. No neck masses. Patient has fair dentition. There is no cervical lymphadenopathy. Pupils are midsize and reactive to light bilaterally. Chest exam; bilateral wheezing. S1-S2 audible, no murmurs. Regular rhythm. Abdomen exam; soft, nontender. No organomegaly. Bowel sounds audible. Extremity exam; no peripheral edema. No clubbing. Pulses 2+ bilaterally. 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 Results Result Diagram: 06/08/17 1039 06/08/17 1039 Medications Medications Current Medications Nicotine (Nicoderm 21 Mg/ 24hr) 1 patch DAILY TRANSDERM ; Start 05/26/17 at 09: 00 Ondansetron HCl (Zofran Inj) 4 mg Q6H PRN IV NAUSEA AND/OR VOMITING Last administered on 06/01/17 22:10; Admin Dose 4 MG; Start 05/25/17 at 21:00 Famotidine (Pepcid) 20 mg BID PO Last administered on 06/11/17 08:14; Admin Dose 20 MG; Start 05/26/17 at 09:00 Salmeterol Xinafoate/ Fluticasone (Advair 250/50 Diskus) 1 inh BID INH Last administered on 06/11/17 08:15; Admin Dose 1 INH; Start 05/26/17 at 09:00 Atorvastatin Calcium (Lipitor) 20 mg HS PO Last administered on 06/10/17 21:17 ; Admin Dose 20 MG; Start 05/26/17 at 21:00 Promethazine HCl/ Codeine (Phenergan/ Codeine) 5 ml Q4H PRN PO COUGH Last administered on 05/26/17 19:47; Admin Dose 5 ML; Start 05/26/17 at 19:00 Eye Lubricant (Artificial Tears Oph) 2 drop BID PRN BOTH EYES DRY EYES Last administered on 06/07/17 02:31; Admin Dose 2 DROP; Start 05/30/17 at 16:00 Bisacodyl (Dulcolax) 10 mg DAILY PRN PO CONSTIPATION Last administered on 11:23; Admin Dose 10 MG; Start 06/04/17 at 11:00 Indomethacin (Indocin) 25 mg QID PO Last administered on 06/11/17 13:44; Admin Dose 25 MG; Start 06/05/17 at 17:00 Al Hydrox/Mg Hydrox/Simethicone (Mag-Al Plus) 30 ml Q6H PRN PO GASTROINTESTINAL UPSET Last administered on 06/09/17 17:31; Admin Dose 30 ML; Start 06/06/17 at 17:30 Zolpidem Tartrate (Ambien) 10 mg HS PRN PO INSOMNIA Last administered on 21:18; Admin Dose 10 MG; Start 06/07/17 at 22:30 Methylprednisolone Sodium Succinate (Solu-Medrol) 30 mg DAILY IV Last administered on 06/11/17 08:14; Admin Dose 30 MG; Start 06/10/17 at 09:00 Morphine Sulfate (morphine) 1 mg Q4H PRN IV FOR PAIN Last administered on t 11:46; Admin Dose 1 MG; Start 06/11/17 at 11:42 LILIAN MALLOY MD Jun 11, 2017 15:39
[2017-06-11 15:58] VITALS: BP 129/78; RESP 18
== END 2017-06-11 19:30 | disposition home or self-care (01) | DRG 802 ==
LOC: MS2 19:30
PROVIDERS: ADMIT Internal Medicine; ATTEND Internal Medicine
PROC: 07B74ZX Excision of Thorax Lymphatic, Percutaneous Endoscopic Approach, Diagnostic (ICD-10-PCS; principal; 2017-06-01 18:30)
DX: R59.0 Localized enlarged lymph nodes (principal); J98.51 Mediastinitis; D49.89 Neoplasm of unspecified behavior of other specified sites; J44.9 Chronic obstructive pulmonary disease, unspecified; Z87.891 Personal history of nicotine dependence; R63.4 Abnormal weight loss; Z68.24 Body mass index [BMI] 24.0-24.9, adult; Z57.2 Occupational exposure to dust; Z80.9 Family history of malignant neoplasm, unspecified; R49.0 Dysphonia; L03.039 Cellulitis of unspecified toe; E78.5 Hyperlipidemia, unspecified; D15.0 Benign neoplasm of thymus; R07.89 Other chest pain; R07.81 Pleurodynia
CPT/HCPCS: 71010; 71260; 74177; 80048; 80053; 80061; 82550; 82553; 83615; 83735; 84100; 84484; 85025; 85610; 85651; 85730; 86480; 86635; 86641; 86698; 86703; 87070; 87075; 87102; 87116; 87275; 87276; 87279; 87280; 87385; 87400; 87449; 87502; 87556; 88307; 88331; 88341; 88342; 93005; 93306; 94664; J0690; J0696; J1956; J2250; J2270; J2405; J2920; J2930; J3010; J7999; Q9967

== ENCOUNTER 2019-05-16 11:19 | Day surgery (SDC) | payer BC ==
[~2019-05-16] VITALS: Ht 175.3 cm; Wt 71.0 kg
[~2019-05-16 11:19] MED LIST: ADV25050 INH; ALBU18HF INHALATION; ATOR20TA65 PO; INDOS PO; MED4DP PO; PANT40TA3 PO; TRAM50TA2 PO
[2019-05-16 13:02] VITALS: Ht 175.3 cm; Wt 71.0 kg
[2019-05-16 13:18] VITALS: BP 108/68; PULSE 93; RESP 18
[2019-05-16] MEDS ORDERED: MIDAZOLAM 1 MG/ML 2 ML INJ ONE (14:06)
[2019-05-16] MEDS ORDERED: LIDOCAINE 2% (SDV) 5 ML INJ ONE (14:06)
[2019-05-16] MEDS ORDERED: PROPOFOL 20 ML ONE (14:06)
--- NOTE | 2019-05-16 14:06 | PREAC ---
Date/Time of Note Date/Time of Note DATE: 05/16/19 TIME: 14:04 Anesthesia Eval and Record Evaluation Time Pre-Procedure Interview DATE: 05/16/19 TIME: 14:04 Age 59 Sex male NPO: 8 hrs Preoperative diagnosis family hx of colon cancer Planned procedure colon cancer Past Medical History Past Medical History: None Pulm: COPD (fibrosis ) Surgery & Anesthesia Issues No known issue Meds Anticoagulation: No Beta Mary within 24 hr: No Reason Beta Mary not given: Pt. not on B-Mary Active Scripts Tramadol HCl (Tramadol HCl) 50 Mg Tablet, 50 MG PO Q4 PRN for ain, #25 TAB Prov:REGNERISSA BROOKS NP 06/11/17 Pantoprazole* (Protonix*) 40 Mg Tablet.dr, 40 MG PO DAILY for 30 Days, TAB Prov:REGNERISSA BROOKS NP 06/11/17 Methylprednisolone* (Medrol* DOSE PACK) 4 Mg/Dose-Pack Tab.ds.pk, 4 MG PO . DIRECTED, #1 PACKET Prov:NERISSA PARK NP 06/11/17 Salmeterol Xinaf/Fluticasone* (Advair*) 250-50 Diskus Inhaler, 1 INH INH BID, #1 INH 2 Refills Prov:NERISSA PARK NP 06/11/17 Indomethacin* (Indocin* (Ped Susp)) 25 Mg/5 Ml Susp, 25 MG PO QID for 30 Days Prov:NERISSA PARK NP 06/11/17 Atorvastatin Calcium (Atorvastatin Calcium) 20 Mg Tablet, 20 MG PO HS for 30 Days, TAB Prov:NERISSA PARK NP 06/11/17 Albuterol Sulfate* (Ventolin HFA*) 18 Gm Hfa.aer.ad, 2 PUFF INHALATION BID , #2 INHALER Prov:REGNERISSA BROOKS NP 06/11/17 Meds reviewed: Yes Allergies Coded Allergies: No Known Allergy (Unverified , 05/25/17) Allergies Reviewed: Yes Labs/Studies Labs Reviewed: Reviewed by anesthesiologist test: N/A Pre-procedure Exam Last vitals Vital Signs Date Temp Pulse Resp B/P (MAP) Pulse Ox O2 O2 Flow FiO2 Time Delivery Rate 05/16/19 97.8 93 18 108/68 93 Room Air 13:18 (81) Airway: Adequate mouth opening, Adequate thyromental dist Mallampati: Mallampati II Teeth: Normal Lung: Normal Heart: Normal ASA Physical Status ASA physical status: 3 Emergency: None Pre-operative Attestations Prior to commencing anesthesia and surgery, the patient was re-evaluated, there was verification of: *The patient's identity *The results of appropriate recent lab work and preoperative vital signs *The above evaluation not changing prior to induction *Anesthetic plan, risk benefits, alternative and complications discussed with patient/family; questions answered; patient/family understands, accepts and wishes to proceed. EMIL KATZ DO May 16, 2019 14:06
--- NOTE | 2019-05-16 14:28 | PAC ---
Date/Time of Note Date/Time of Note DATE: 05/16/19 TIME: 14:28 Post-Anesthesia Notes Post-Anesthesia Note Last documented vital signs Vital Signs Date Temp Pulse Resp B/P (MAP) Pulse Ox O2 O2 Flow FiO2 Time Delivery Rate 05/16/19 98 80 18 105/60 93 Room Air 1428 Activity: WNL Respiratory function: WNL Cardiovascular function: WNL Mental status: Baseline Pain reasonably controlled: Yes Hydration appropriate: Yes Nausea/Vomiting absent: Yes EMIL KATZ DO May 16, 2019 14:28
[2019-05-16 14:57] VITALS: BP 92/71; RESP 20
== END 2019-05-16 17:44 | disposition home or self-care (01) ==
LOC: GIL 11:19
PROVIDERS: ATTEND Internal Medicine Gastroenterology
DX: Z12.11 Encounter for screening for malignant neoplasm of colon (principal); K64.8 Other hemorrhoids; J44.9 Chronic obstructive pulmonary disease, unspecified; Z80.0 Family history of malignant neoplasm of digestive organs
CPT/HCPCS: 45378; J2250; Z7610